=== PATIENT | female | born 1955 | race Caucasian/White ===

== ENCOUNTER 2018-08-24 11:41 | Observation (INO) | payer MEDICARE ==
[~2018-08-24 11:41] MED LIST: ISOVUE-370 76%-LOCM 1 ML ONE
--- NOTE | 2018-08-24 13:01 | RAD ---
PA AND LATERAL VIEWS CHEST: HISTORY: Dyspnea, cough, congestion, and fever. FINDINGS: Comparison is made with the exam of 08/22/2017. Changes of median sternotomy are again seen. Left-sided cardiac pacer is redemonstrated. The heart size is normal. The lungs are expanded without vocal areas of consolidation, pneumothorax, max pul monary edema, or pleural effusions. There are degenerative changes in the spine. IMPRESSION: No radiographic evidence of acute cardiopulmonary process. POS: [facility]
[2018-08-24 13:04] LABS: #Basophils 0.1 thou/uL (0.0-0.2); #Eosinphils 0.1 thou/uL (0.0-0.7); #Lymphocytes 1.4 thou/uL (1.20-3.40); #Monocytes 0.8 thou/uL (0.11-0.59); %Basophils 0.6 % (0.0-1.0); %Eosinophils 0.9 % (0.0-10.0); %Lymphocytes 12.3 % (21.0-51.0); %Monocytes 6.7 % (0.0-10.0); %Neutrophils 79.5 % (42.0-75.0); Hemoglobin 16.6 g/dL (12.0-16.0); Mean Corpuscular HGB CONC 32.8 g/dL (32.0-36.0); Mean Corpuscular Hemoglobin 29.2 pg (27.0-31.0); Mean Corpuscular Volume 89.1 fL (78.0-98.0); Mean Platelet Volume 8.7 fL (7.4-10.4); Platelet Count 264 thou/uL (130-400); RBC Distribution Width 12.3 % (11.5-14.5); Red Blood Cell (RBC) Count 5.69 mill/uL (4.20-5.40); White Blood Cell (WBC) Count 11.3 thou/uL (4.8-10.8)
[2018-08-24 13:06] LABS: INR-International Normal Ratio 1.1; Prothrombin Time 13.8 SEC (12.0-14.7)
[2018-08-24 13:07] LABS: PTT 30.2 SEC (22.9-36.1)
[2018-08-24 13:24] LABS: ALT (SGPT) 12 U/L (8-55); AST (SGOT) 16 U/L (5-34); Albumin 3.4 g/dL (3.4-4.8); Alkaline Phosphatase 72 U/L (40-150); Anion Gap 18 mmol/L (10-20); BUN (Urea Nitrogen) 19 mg/dL (9.8-20.1); Bilirubin, Total 0.5 mg/dL (0.2-1.2); CK (CPK) 143 U/L (29-168); Calc. Creatinine Clearance 0 mL/min (70-130); Calcium 8.8 mg/dL (7.8-10.44); Carbon Dioxide 20 mmol/L (23-31); Chloride 102 mmol/L (98-107); Estimated GFR-MDRD 43; Globulin 3.8 g/dL (2.4-3.5); Glucose 190 mg/dL (80-115); Potassium 4.1 mmol/L (3.5-5.1); Protein, Total 7.2 g/dL (6.0-8.3); Sodium 136 mmol/L (136-145)
[2018-08-24 13:26] LABS: CKMB 3.5 ng/mL (0-6.6); Troponin I 0.042 ng/mL (< 0.028)
[2018-08-24] MEDS ORDERED: Furosemide 40 MG/4 ML VIAL ONE (15:54)
[2018-08-24 16:52] LABS: Bilirubin Moderate (Negative); Blood, Urine Moderate (Negative); Clarity CLEAR (Clear); Glucose, Urine (Dipstick) 100 mg/dL (Negative); Leukocyte Negative (Negative); Nitrite Negative (Negative); Protein, Urine (Dipstick) > or equal to 300 mg/dL (Neg-Trace); Specific Gravity, Urine 1.041 (1.002-1.036); pH, Urine 5.5 (5.0-9.0)
[2018-08-24 16:56] LABS: Pathc Cast-AUWi Flag 3.48 (0-2.49)
[2018-08-24 17:04] LABS: Bacteria/HPF 1+ HPF (None Seen); Renal Epithelial None Seen HPF (0-3); Transitional Epithelial NONE SEEN HPF (0-3)
[2018-08-24 17:05] LABS: Hyaline Casts/LPF NONE SEEN LPF (0-3 Hyaline); Manual Microscopic Reviewed? No Path Casts Seen; Other Casts/LPF 0-3 FINELY GRAN LPF (0-3 Hyaline)
[2018-08-24] MEDS ORDERED: Nitroglycerin 2% Ointment 1 INCH/1 GM Packet ONE (17:24)
[2018-08-24] MEDS ORDERED: Labetalol HCl 100 MG/20 ML VIAL ONE (17:24)
[2018-08-24 17:27] LABS: Troponin I 0.063 ng/mL (< 0.028)
--- NOTE | 2018-08-24 18:37 | CT ---
CT ANGIOGRAM CHEST WITH 3D RENDERING: HISTORY: A 63-year-old female with a history of chest pain, intractable cough, and congestion. FINDINGS: Postop midline sternotomy and left ICD. Small focus of pleural-based nodular scarring in the anterio r right middle lobe. No CT evidence for acute pulmonary embolism. No pleural effusion or pericardia l effusion. The visualized upper abdomen is unremarkable. The ascending aorta approximates 4.1 cm i n diameter. IMPRESSION: No CT evidence for acute pulmonary embolism. No evidence for aortic dissection. Ascending aorta addi roximates 4.1 cm. Small left renal cyst, 2.7 cm. Other findings as above. POS: [facility]
--- NOTE | 2018-08-24 19:12 | PDOC.FPRHP ---
- History of Present Illness Chief Complaint: cough, congestion and fever History of Present Illness: The patient is a 63YO female with a PMH significant for CAD s/p 3 vessel CABG, HTN, HLD, PVD, DMII and mild COPD not on any home medications who presented to the ED with a CC of persistent cough, fever, and nasal and chest congestion that has been ongoing for the last 10 days. The patient reports that about 10 days ago she began to feel ill and started to develop a cough productive of yellow sputum, fever up to 101.5F, and nasal congestion. She also endorsed some associated fatigue and decreased appetite and said she was ill in bed for about 3 days but then started to feel better. However, about 4 days ago she started to feel ill again with similar symptoms in addition to wheezing, purulent nasal discharge, and headache. She did endorse that her granddaughter who she lives with recently had a cold. She has been taking Dayquil and Nyquil almost daily to manage her symptoms that she says has helped some. The patient denies any chest pain, SOB, LE edema, sore throat, or nausea but she did say that her coughing occasionally causes her to gag and vomit and she has had a small amount of diarrhea the last few days. ED Course: Patient was given 20mg of IV labetalol, 1 inch of topical nitropaste, 750mg IV levaquin, & 324mg ASA. - Allergies/Adverse Reactions Allergies Allergy/AdvReac Type Severity Reaction Status Date / Time No Known Drug Allergies Allergy Verified 08/24/18 21:56 - Home Medications Medication Instructions Recorded Confirmed Type Clopidogrel Bisulfate [Plavix] 75 mg PO DAILY #0 tab 04/07/13 08/24/18 Rx Carvedilol [Coreg] 25 mg PO BID #0 tab 08/03/15 08/24/18 Rx Gabapentin [Neurontin] 600 mg PO TID 11/29/15 08/24/18 History Simvastatin [Zocor] 40 mg PO HS 11/29/15 08/24/18 History Ondansetron [Zofran ODT] 4 mg SL Q6HR PRN 03/25/17 08/24/18 History glipiZIDE [Glucotrol XL] 2.5 mg PO QAM-WM #30 tab 04/03/17 08/24/18 Rx Aspirin [Aspirin Chewable Tablet] 81 mg PO DAILY 06/07/17 08/24/18 History Polyethylene Glycol 3350 [Miralax] 17 gm PO DAILY PRN 06/07/17 08/24/18 History Zolpidem Tartrate [Ambien] 5 mg PO HS PRN 06/07/17 08/24/18 History Furosemide [Lasix] 20 mg PO QPM #30 tab 06/09/17 08/24/18 Rx Furosemide [Lasix] 40 mg PO QAM #30 tab 06/09/17 08/24/18 Rx Cholecalciferol (Vitamin D3) 1,000 unit PO DAILY 08/24/18 08/24/18 History [Vitamin D3] Sertraline HCl 100 mg PO DAILY 08/24/18 08/24/18 History - History PMHx: CAD s/p 3-vessel CABG in March of 2017, HTN, HLD, PVD, HFpEF, CKD stage III , depression and anxiety, DMII PSHx: L BKA, R CEA, R rotator cuff repair, AICD placement & 3-vessel CABG FHx: Unknown as patient was adopted. Social: Lives at home with daughter, granddaughter and son-in-law in [place]. Former smoker w/ 50 pack year history. Quit 5 years ago. Drinks about 2 beers/ month. Uses MJ regularly, last used ~2 weeks ago. - Review of Systems General: reports: fever/chills, weight/appetite/sleep changes, fatigue Eyes: denies: eye pain, vision changes ENT: reports: nasal congestion, other (no sore throat or dysphagia). denies: rhinorrhea Respiratory: reports: cough, congestion. denies: shortness of breath Cardiovascular: denies: chest pain, edema Gastrointestinal: reports: vomiting, diarrhea. denies: nausea, constipation, abdominal pain Genitourinary: reports: other (no hematuria). denies: dysuria Skin: denies: rashes, itching Musculoskeletal: reports: arthritis/arthralgias. denies: swelling Neurological: reports: weakness. denies: numbness, syncope Psychological: reports: anxiety, depression - Vital signs BP: 156/92 HR: 85 RR: 18 Tmax: 99.5F Pox: 94% on RA Wt: 94kg - Physical Exam Constitutional: NAD, awake, alert and oriented, well developed HEENT: normocephalic and atraumatic, conjunctiva clear, no scleral icterus, grossly normal vision, TM's clear and intact (could not visualize R TM 2/2 cerumen impaction but L TM clear and intact), grossly normal hearing, MMM, oropharynx clear Neck: supple, FROM, no LAD Chest: no-tender to palpation, no lesions Heart: RRR, normal S1/S2, no edema Lungs: CTAB, no respiratory distress, good air movement, no rales/rhonchi, other (mild upper airway wheezing while listening over trachea) Abdomen: soft, non-tender, bowel sounds present Musculoskeletal: normal structure, ROM grossly normal Neurological: no focal deficit -Neurological: symmetric facial movements Skin: no rash/lesions, good turgor, no jaundice Heme/Lymphatic: no unusual bruising or bleeding Psychiatric: normal mood and affect, good judgment and insight, intact recent and remote memory FMR H&P: Results - Labs Result Diagrams: 08/24/18 12:51 08/25/18 03:39 Lab results: WBC 11.3 thou/uL (4.8-10.8) H 08/24/18 12:51 Hgb 16.6 g/dL (12.0-16.0) H 08/24/18 12:51 Hct 50.7 % (36.0-47.0) H 08/24/18 12:51 MCV 89.1 fL (78.0-98.0) 08/24/18 12:51 Plt Count 264 thou/uL (130-400) 08/24/18 12:51 Neutrophils % 79.5 % (42.0-75.0) H 08/24/18 12:51 Sodium 136 mmol/L (136-145) 08/24/18 12:51 Potassium 4.1 mmol/L (3.5-5.1) 08/24/18 12:51 Chloride 102 mmol/L (98-107) 08/24/18 12:51 Carbon Dioxide 20 mmol/L (23-31) L 08/24/18 12:51 BUN 19 mg/dL (9.8-20.1) 08/24/18 12:51 Creatinine 1.26 mg/dL (0.6-1.1) H 08/24/18 12:51 Glucose 190 mg/dL (80-115) H 08/24/18 12:51 Lactic Acid 1.4 mmol/L (0.5-2.2) 08/24/18 12:51 Calcium 8.8 mg/dL (7.8-10.44) 08/24/18 12:51 Total Bilirubin 0.5 mg/dL (0.2-1.2) 08/24/18 12:51 AST 16 U/L (5-34) 08/24/18 12:51 ALT 12 U/L (8-55) 08/24/18 12:51 Alkaline Phosphatase 72 U/L (40-150) 08/24/18 12:51 Creatine Kinase 143 U/L (29-168) 08/24/18 12:51 CK-MB (CK-2) 3.5 ng/mL (0-6.6) 08/24/18 12:51 B-Natriuretic Peptide 201.4 pg/mL (0-100) H 08/24/18 12:51 Serum Total Protein 7.2 g/dL (6.0-8.3) 08/24/18 12:51 Albumin 3.4 g/dL (3.4-4.8) 08/24/18 12:51 Urine Ketones 15 mg/dL (Negative) H 08/24/18 16:00 Urine Blood Moderate (Negative) H 08/24/18 16:00 Urine Nitrite Negative (Negative) 08/24/18 16:00 Ur Leukocyte Esterase Negative (Negative) 08/24/18 16:00 Urine RBC 7-10 HPF (0-3) H 08/24/18 16:00 Urine WBC 4-6 HPF (0-3) H 08/24/18 16:00 Ur Squamous Epith Cells 11-20 HPF (0-3) H 08/24/18 16:00 Urine Bacteria 1+ HPF (None Seen) H 08/24/18 16:00 - EKG Interpretation EKG: NSR - Radiology Interpretation Chest x-ray Status: report reviewed by me Additional comment: No acute cardiopulmonary process. FMR H&P: A/P - Problem List (1) Sepsis Current Visit: Yes Status: Acute Code(s): A41.9 - SEPSIS, UNSPECIFIED ORGANISM (2) Sinusitis Current Visit: Yes Status: Acute Code(s): J32.9 - CHRONIC SINUSITIS, UNSPECIFIED Qualifiers: Sinusitis location: maxillary Chronicity: acute (3) Carotid artery stenosis Current Visit: Yes Status: Chronic Code(s): I65.29 - OCCLUSION AND STENOSIS OF UNSPECIFIED CAROTID ARTERY Qualifiers: Laterality: bilateral Qualified Code(s): I65.23 - Occlusion and stenosis of bilateral carotid arteries (4) Demand ischemia Current Visit: Yes Status: Acute Code(s): I24.8 - OTHER FORMS OF ACUTE ISCHEMIC HEART DISEASE (5) S/P CABG (coronary artery bypass graft) Current Visit: No Status: Acute Code(s): Z95.1 - PRESENCE OF AORTOCORONARY BYPASS GRAFT (6) CAD (coronary artery disease) Current Visit: Yes Status: Chronic Code(s): I25.10 - ATHSCL HEART DISEASE OF [place] CORONARY ARTERY W/O ANG PCTRS Qualifiers: Coronary Disease-Associated Artery/Lesion type: bypass graft [place] vs. transplanted heart: [place] heart Associated angina: without angina Qualified Code(s): I25.810 - Atherosclerosis of coronary artery bypass graft(s) without angina pectoris (7) CKD (chronic kidney disease) stage 3, GFR 30-59 ml/min Current Visit: Yes Status: Chronic Code(s): N18.3 - CHRONIC KIDNEY DISEASE, STAGE 3 (MODERATE) (8) COPD (chronic obstructive pulmonary disease) Current Visit: Yes Status: Chronic Qualifiers: Chronic bronchitis type: unspecified (9) Chronic insomnia Current Visit: Yes Status: Chronic Code(s): F51.04 - PSYCHOPHYSIOLOGIC INSOMNIA (10) Depression Current Visit: Yes Status: Chronic Code(s): F32.9 - MAJOR DEPRESSIVE DISORDER, SINGLE EPISODE, UNSPECIFIED (11) Diabetic neuropathy associated with type 2 diabetes mellitus Current Visit: Yes Status: Chronic Code(s): E11.40 - TYPE 2 DIABETES MELLITUS WITH DIABETIC NEUROPATHY, UNSP Qualifiers: Diabetes mellitus complication detail: diabetic polyneuropathy Qualified Code(s): E11.42 - Type 2 diabetes mellitus with diabetic polyneuropathy (12) Elevated troponin Current Visit: Yes Status: Acute Code(s): R79.89 - OTHER SPECIFIED ABNORMAL FINDINGS OF BLOOD CHEMISTRY (13) Heart failure with preserved ejection fraction Current Visit: Yes Status: Chronic Code(s): I50.30 - UNSPECIFIED DIASTOLIC ( CONGESTIVE) HEART FAILURE (14) Hyperlipidemia Current Visit: Yes Status: Chronic Code(s): E78.5 - HYPERLIPIDEMIA, UNSPECIFIED Qualifiers: Hyperlipidemia type: unspecified Qualified Code(s): E78.5 - Hyperlipidemia , unspecified Comment: Continue Lipitor 20mg qhs (15) Hypertension Current Visit: No Status: Chronic Code(s): I10 - ESSENTIAL (PRIMARY) HYPERTENSION Qualifiers: Hypertension type: essential hypertension Qualified Code(s): I10 - Essential (primary) hypertension (16) Peripheral vascular disease Current Visit: No Status: Chronic Code(s): I73.9 - PERIPHERAL VASCULAR DISEASE, UNSPECIFIED (17) Type II diabetes mellitus Current Visit: Yes Status: Chronic Qualifiers: Diabetes mellitus complication status: with kidney complications Diabetes mellitus complication detail: with chronic kidney disease Chronic kidney disease stage: stage 3 (moderate) - Plan 63 YO female w/ a PMH significant for DMII, HTN, HLD, HFpEF, and CAD who presented to the ED with a CC of cough, fever, and congestion that has been ongoing on and off for the last 10 days determined to be septic 2/2 sinusitis. Sepsis 2/2 suspected sinusitis: - HR initially just above 100 and tachypnic with a RR of 22 meeting SIRS criteria. WBC elevated but only at 11.3. This along w/ maxillary TTP and purulent nasal discharge on history and PE leads up to believe most likely source to be bacterial sinusitis. Likely 2/2 to an initial viral URI given disease course per patient's history. - However, UA was + for bacteria, WBCs, & blood so could possible be due to UTI but patient denied any urinary symptoms and specimen was not a clean catch per ED physician. - Flu swab & CXR negative. Procal only 0.15 & lactate 1.4. - Blood and urine cultures pending. - Will start on gentle IVFs with LR @ 125mL/hr given h/o CHF. - s/p 750mg IV levaquin in the ED. Will d/c levaquin & start on PO Augmentin to cover possible sinusitis and UTI. - Will order tylenol PRN for fever/pain as well as mucinex & tessalon for cough. Will order PRN Duonebs as well per patient's request. Possible UTI: - UA dirty as described above. - Urine culture pending. - Will start on PO Augmentin to cover both possible UTI and sinusitis. - Will start on gentle IVFs given decreased PO intake over last several days. Moderate volume depletion: - CBC significant for polycythemia w/ an H/H of 16.6/50.9. UA also significant for an elevated SG & ketones all suggestive of decreased volume status. - Will start on gentle IVFs in addition to diet w/ LR @ 125mL/hr. - Repeat BMP in the AM & strict I&Os. Elevated troponin: - Initial troponin elvated at 0.042 and trended up to 0.063. Will repeat to ensure down trend. ECG not concerning for an acute ischemic event and patient denies having any chest pain. - Likely 2/2 demand ischemia from volume depletion from decreased PO intake. - Will monitor overnight on telemetry. Elevated D-dimer: - D-dimer elevated at 1.10 on presentation. - CTA negative for PE or dissection. - Likely 2/2 underlying CAD and/or inflammation 2/2 infection. HTN: - In hypertensive urgency range on initial presentation but patient admitted to med non-compliance. Patient endorsed a frontal SHANKS but denied any other hypertensive emergency symptoms. - s/p 20mg IV labetalol in the ED and SBP down to 150s. - Will resume home meds and continue to monitor. DMII w/ polyneuropathy: - BG 190 on initial presentation. - Will also start on CC diet. - Will resume home meds and start on mild SSI and hypoglycemia protocol. - Will order ACHS accuchecks. HFpEF: - EF of 50-55% per Echo done last May. Does not appear to be in acute exacerbation. Is actually volume depleted rather than volume overloaded based on labwork and PE. - BNP slightly elevated at 201.4. - Is s/p 40mg IV lasix in the ED. Will hold home lasix given low volume status and resume other home meds. COPD: - Mild COPD per patient. Not on any inhalers at home. Not in acute exacerbation as no lower airway wheezing noted on PE & satting well on RA. - Will start on PRN Duonebs per patient request Q4H. HLD: - Aware, will resume home meds. CAD s/p CABG x3 - Aware, will resume home meds. CKD stage III: - renal function at baseline on initial labs. - Will start on low protein diet and continue to monitor w/ QD BMPs. Chronic insomnia: - Will resume home meds. Depression/Anxiety: - Will resume home meds. h/o PVD s/p left BKA & Right CEA: - Aware, will resume home meds. FMR H&P: Upper Level - Pertinent history 63 yo F with PMHx T2DM, HFpeF, CAD s/p CABG with pacemaker in place and HTN presents with 10 day history of sinus and chest congestion, productive cough and subjective fever. Her granddaughter has also been sick with URI symptoms. She reports this has happened in the past but this seems worse than before. She does not endorse any orthopnea, peripheral edema, chest pain, chest pressure or blood tinged sputum. She has been taking cough medication at home with no relief. - Pertinent findings Tachypneic, tachycardic CXR negative, EKG L axis deviation, sinus rhythm, CTA negative for PE or dissection, small renal cyst noted Gen: awake, alert, oriented, in no distress HEENT: atraumatic, normocephalic, dry MM CV: RRR, no murmur noted, pacemaker in place RESP: CTAB ABD: soft, nontender, nondistended, bowel sounds present EXT: no cyanosis, edema, L BKA SKIN: no rashes - Plan Date/Time: 08/24/181911 63 yo F with sepsis 2/2 URI and possibly also UTI 1. Sepsis 2/2 sinusitis + cystitis - BCx, UCx pending - Will start gentle fluids in setting of HFpEF - Will transition to augmentin 2. Elevated troponin - No chest pain - Moderate dehydration, suspect demand ischemia - Will continue to trend and monitor for CP - Monitor on telemetry 3. Dehydration - Urine dark, dry MM and poor PO intake for last 10 days 4. Cystitis - Urine not clean catch - Will await UCx for definitive need for treatment but will continue Augmentin 5. HTN - Elevated in ED - Resume home meds and augment if indicated - Will give PRN if > 180/[address] Jean Baptiste's note regarding remainder of comorbidity MGMT I, Jalyn Quinn MD, PGY-3, have evaluated this patient and agree with findings/ plan as outlined by director international resident. Pertinent changes/additions are listed here. Attending Addendum - Attending Addendum Date/Time: 08/25/18821 I personally evaluated the patient and discussed the management with Dr. Jean Baptiste/ Kai. I agree with the History, Examination, Assessment and Plan documented above with any addition or exceptions noted below.
[2018-08-24] MEDS ORDERED: Ondansetron ODT 4 MG TAB PO PRN (22:25)
[2018-08-24] MEDS ORDERED: Acetaminophen 325 MG TAB PO PRN (22:25)
[2018-08-24] MEDS ORDERED: Insulin Regular 300 UNITS/3 ML VIAL SC PRN (22:25)
[2018-08-24] MEDS ORDERED: Benzonatate 100 MG CAP PO PRN (22:25)
[2018-08-24] MEDS ORDERED: Zolpidem Tartrate 5 MG TAB PO PRN (22:25)
[2018-08-24] MEDS ORDERED: Dextrose 5% in Water 1,000 ML IV PRN (22:25)
[2018-08-24] MEDS ORDERED: Dextrose 50% Abboject 50 ML SYRINGE SLOW IVP PRN (22:25)
[2018-08-24 22:42] VITALS: BMI 34.4
[2018-08-24] MEDS ORDERED: Gabapentin 300 MG CAP PO SCH (22:45)
[2018-08-24] MEDS ORDERED: Atorvastatin Calcium 20 MG TAB PO SCH (22:45)
[2018-08-24] MEDS ORDERED: Amoxicillin/Potassium Clav 875 MG TAB PO SCH (22:45)
[2018-08-24] MEDS ORDERED: Carvedilol 25 MG TAB PO SCH (22:45)
[2018-08-24] MEDS: Lactated Ringer's 1,000 ML IV SCH (23:07)
[2018-08-24] MEDS ORDERED: guaiFENesin/DM ER PO SCH (23:15)
[2018-08-24 23:49] LABS: Troponin I 0.074 ng/mL (< 0.028)
[2018-08-25 04:00] LABS: Anion Gap 14 mmol/L (10-20); BUN (Urea Nitrogen) 22 mg/dL (9.8-20.1); Calc. Creatinine Clearance 65 mL/min (70-130); Calcium 8.4 mg/dL (7.8-10.44); Carbon Dioxide 25 mmol/L (23-31); Chloride 102 mmol/L (98-107); Estimated GFR-MDRD 40; Glucose 159 mg/dL (80-115); Potassium 4.1 mmol/L (3.5-5.1); Sodium 137 mmol/L (136-145)
[2018-08-25 04:05] LABS: Troponin I 0.071 ng/mL (< 0.028)
--- NOTE | 2018-08-25 06:55 | PDOC.FM ---
- Subjective Subjective: Patient doing well this AM. No significant overnight events. Patient states she is feeling much better than she did yesterday. She is tolerating PO. Her facial pain has decreased. She feels as if she is ready to go home. - Objective MAR Reviewed: Yes Vital Signs & Weight: Vital Signs (12 hours) Temp Pulse Resp BP Pulse Ox 08/25/18 03:59 98.3 F 76 20 133/79 94 L 08/24/18 23:27 82 17 158/83 H 08/24/18 20:08 98 F 83 22 H 134/73 95 Weight Weight 96.343 kg I&O: 08/23/18 08/24/18 08/25/18 06:59 06:59 06:59 Intake Total 1753 Output Total 500 Balance 1253 Result Diagrams: 08/24/18 12:51 08/25/18 03:39 EKG Reviewed by me: No Radiology Reviewed by me: Yes <Jackie Dorman - Last Filed: 08/25/18 10:26> - Objective Vital Signs & Weight: Vital Signs (12 hours) Temp Pulse Resp BP BP Pulse Ox 08/25/18 09:12 68 142/72 H 08/25/18 08:00 98.3 F 69 16 198/91 H 94 L 08/25/18 03:59 98.3 F 76 20 133/79 94 L 08/24/18 23:27 82 17 158/83 H Weight Weight 96.343 kg I&O: 08/24/18 08/25/18 08/26/18 06:59 06:59 06:59 Intake Total 1753 Output Total 500 Balance 1253 Result Diagrams: 08/24/18 12:51 08/25/18 03:39 <Pascual Kraus - Last Filed: 08/25/18 10:33> Phys Exam - Physical Examination Constitutional: NAD HEENT: moist MMs Neck: supple Respiratory: no wheezing, clear to auscultation bilateral Cardiovascular: RRR Gastrointestinal: soft, no distention, positive bowel sounds Musculoskeletal: no edema, pulses present Neurological: non-focal, moves all 4 limbs Psychiatric: normal affect, A&O x 3 Skin: no rash, cap refill <2 seconds <Jackie Dorman - Last Filed: 08/25/18 10:26> Dx/Plan (1) Sepsis Code(s): A41.9 - SEPSIS, UNSPECIFIED ORGANISM Status: Acute (2) Demand ischemia Code(s): I24.8 - OTHER FORMS OF ACUTE ISCHEMIC HEART DISEASE Status: Acute (3) Sinusitis Code(s): J32.9 - CHRONIC SINUSITIS, UNSPECIFIED Status: Acute Qualifiers: Sinusitis location: maxillary Chronicity: acute (4) Elevated troponin Code(s): R79.89 - OTHER SPECIFIED ABNORMAL FINDINGS OF BLOOD CHEMISTRY Status : Acute (5) CAD (coronary artery disease) Code(s): I25.10 - ATHSCL HEART DISEASE OF [place] CORONARY ARTERY W/O ANG PCTRS Status: Chronic Qualifiers: Coronary Disease-Associated Artery/Lesion type: bypass graft [place] vs. transplanted heart: telida heart Associated angina: without angina Qualified Code(s): I25.810 - Atherosclerosis of coronary artery bypass graft(s) without angina pectoris (6) CKD (chronic kidney disease) stage 3, GFR 30-59 ml/min Code(s): N18.3 - CHRONIC KIDNEY DISEASE, STAGE 3 (MODERATE) Status: Chronic (7) COPD (chronic obstructive pulmonary disease) Status: Chronic Qualifiers: Chronic bronchitis type: unspecified (8) Carotid artery stenosis Code(s): I65.29 - OCCLUSION AND STENOSIS OF UNSPECIFIED CAROTID ARTERY Status : Chronic Qualifiers: Laterality: bilateral Qualified Code(s): I65.23 - Occlusion and stenosis of bilateral carotid arteries (9) Chronic insomnia Code(s): F51.04 - PSYCHOPHYSIOLOGIC INSOMNIA Status: Chronic (10) Depression Code(s): F32.9 - MAJOR DEPRESSIVE DISORDER, SINGLE EPISODE, UNSPECIFIED Status : Chronic (11) Diabetic neuropathy associated with type 2 diabetes mellitus Code(s): E11.40 - TYPE 2 DIABETES MELLITUS WITH DIABETIC NEUROPATHY, UNSP Status: Chronic Qualifiers: Diabetes mellitus complication detail: diabetic polyneuropathy Qualified Code(s): E11.42 - Type 2 diabetes mellitus with diabetic polyneuropathy (12) Heart failure with preserved ejection fraction Code(s): I50.30 - UNSPECIFIED DIASTOLIC (CONGESTIVE) HEART FAILURE Status: Chronic (13) Hyperlipidemia Code(s): E78.5 - HYPERLIPIDEMIA, UNSPECIFIED Status: Chronic Qualifiers: Hyperlipidemia type: unspecified Qualified Code(s): E78.5 - Hyperlipidemia , unspecified (14) Type II diabetes mellitus Status: Chronic Qualifiers: Diabetes mellitus complication status: with kidney complications Diabetes mellitus complication detail: with chronic kidney disease Chronic kidney disease stage: stage 3 (moderate) (15) Hypertension Code(s): I10 - ESSENTIAL (PRIMARY) HYPERTENSION Status: Chronic Qualifiers: Hypertension type: essential hypertension Qualified Code(s): I10 - Essential (primary) hypertension - Plan Plan: 63 YO female w/ a PMH significant for DMII, HTN, HLD, HFpEF, and CAD who presented to the ED with a CC of cough, fever, and congestion that has been ongoing on and off for the last 10 days determined to be septic 2/2 sinusitis. Sepsis 2/2 suspected sinusitis: - HR initially just above 100 and tachypneic with a RR of 22 meeting SIRS criteria. WBC elevated but only at 11.3. This along w/ maxillary TTP and purulent nasal discharge on history and PE leads us to believe most likely source to be bacterial sinusitis. Likely 2/2 to an initial viral URI given disease course per patient's history. - UA was + for bacteria, WBCs, & blood so could possibly be due to UTI, but patient denied any urinary symptoms and specimen was not a clean catch per ED physician. - Flu swab & CXR negative. Procal only 0.15 & lactate 1.4. - Blood and urine cultures pending. - D/c IVF as patient tolerating PO - Continue Augmentin - Tylenol PRN for fever/pain as well as mucinex & tessalon for cough. Continue PRN Duonebs as well per patient's request. Possible UTI: - UA dirty as described above. - Urine culture pending. - Continue PO Augmentin to cover both possible UTI and sinusitis. - D/c IVF as patient tolerating PO. Moderate volume depletion: - CBC significant for polycythemia w/ an H/H of 16.6/50.9. UA also significant for an elevated SG & ketones all suggestive of decreased volume status. - D/c IVF and encourage PO hydration. Elevated troponin likely 2/2 demand ischemia: - Initial troponin elvated at 0.042 and trended up to 0.063. Repeat 0.074, 0.071. - ECG not concerning for an acute ischemic event and patient denies having any chest pain. - Likely 2/2 demand ischemia from volume depletion from decreased PO intake. - Continue to monitor on telemetry. Elevated D-dimer: - D-dimer elevated at 1.10 on presentation. May be related to sepsis. - CTA negative for PE or dissection. - Likely 2/2 underlying CAD and/or inflammation 2/2 infection. HTN: - In hypertensive urgency range on initial presentation but patient admitted to med non-compliance. Patient endorsed a frontal SHANKS but denied any other symptoms concerning for hyptertensive emergency. - s/p 20mg IV labetalol in the ED and SBP down to 150s. - Continue home meds and continue to monitor. - BP this AM 133/79. DMII w/ polyneuropathy: - BG 190 on initial presentation. - Continue CC diet. - Resume home meds and start on mild SSI and hypoglycemia protocol. - ACHS accuchecks. - BG 159. HFpEF: - EF of 50-55% per Echo done last May. Does not appear to be in acute exacerbation. Is actually volume depleted rather than volume overloaded based on labwork and PE. - BNP slightly elevated at 201.4. This is the lowest it has been. - Is s/p 40mg IV lasix in the ED. Will hold home lasix given low volume status and resume other home meds. COPD: - Mild COPD per patient. Not on any inhalers at home. Not in acute exacerbation as no lower airway wheezing noted on PE & satting well on RA. - Will continue PRN Duonebs per patient request Q4H. HLD: - Aware, will continue home meds. CAD s/p CABG x3 - Aware, will continue home meds. CKD stage III: - Renal function at baseline on initial labs. Mildly elevated today compared to initial labwork. - Will start on low protein diet and continue to monitor. Chronic insomnia: - Will resume home meds. Depression/Anxiety: - Will resume home meds. h/o PVD s/p left BKA & Right CEA: - Aware, will resume home meds. Dispo: Stable. Patient improved. If patient continues to tolerate PO and appears better hydrated, will consider d/c home this afternoon. <Jackie Dorman - Last Filed: 08/25/18 10:26> (1) Sepsis Code(s): A41.9 - SEPSIS, UNSPECIFIED ORGANISM Status: Acute (2) Sinusitis Code(s): J32.9 - CHRONIC SINUSITIS, UNSPECIFIED Status: Acute Qualifiers: Sinusitis location: maxillary Chronicity: acute (3) Carotid artery stenosis Code(s): I65.29 - OCCLUSION AND STENOSIS OF UNSPECIFIED CAROTID ARTERY Status : Chronic Qualifiers: Laterality: bilateral Qualified Code(s): I65.23 - Occlusion and stenosis of bilateral carotid arteries (4) Demand ischemia Code(s): I24.8 - OTHER FORMS OF ACUTE ISCHEMIC HEART DISEASE Status: Acute (5) S/P CABG (coronary artery bypass graft) Code(s): Z95.1 - PRESENCE OF AORTOCORONARY BYPASS GRAFT Status: Acute (6) CAD (coronary artery disease) Code(s): I25.10 - ATHSCL HEART DISEASE OF [place] CORONARY ARTERY W/O ANG PCTRS Status: Chronic Qualifiers: Coronary Disease-Associated Artery/Lesion type: bypass graft [place] vs. transplanted heart: [place] heart Associated angina: without angina Qualified Code(s): I25.810 - Atherosclerosis of coronary artery bypass graft(s) without angina pectoris (7) CKD (chronic kidney disease) stage 3, GFR 30-59 ml/min Code(s): N18.3 - CHRONIC KIDNEY DISEASE, STAGE 3 (MODERATE) Status: Chronic (8) COPD (chronic obstructive pulmonary disease) Status: Chronic Qualifiers: Chronic bronchitis type: unspecified (9) Chronic insomnia Code(s): F51.04 - PSYCHOPHYSIOLOGIC INSOMNIA Status: Chronic (10) Depression Code(s): F32.9 - MAJOR DEPRESSIVE DISORDER, SINGLE EPISODE, UNSPECIFIED Status : Chronic (11) Diabetic neuropathy associated with type 2 diabetes mellitus Code(s): E11.40 - TYPE 2 DIABETES MELLITUS WITH DIABETIC NEUROPATHY, UNSP Status: Chronic Qualifiers: Diabetes mellitus complication detail: diabetic polyneuropathy Qualified Code(s): E11.42 - Type 2 diabetes mellitus with diabetic polyneuropathy (12) Elevated troponin Code(s): R79.89 - OTHER SPECIFIED ABNORMAL FINDINGS OF BLOOD CHEMISTRY Status : Acute (13) Heart failure with preserved ejection fraction Code(s): I50.30 - UNSPECIFIED DIASTOLIC (CONGESTIVE) HEART FAILURE Status: Chronic (14) Hyperlipidemia Code(s): E78.5 - HYPERLIPIDEMIA, UNSPECIFIED Status: Chronic Qualifiers: Hyperlipidemia type: unspecified Qualified Code(s): E78.5 - Hyperlipidemia , unspecified (15) Hypertension Code(s): I10 - ESSENTIAL (PRIMARY) HYPERTENSION Status: Chronic Qualifiers: Hypertension type: essential hypertension Qualified Code(s): I10 - Essential (primary) hypertension (16) Peripheral vascular disease Code(s): I73.9 - PERIPHERAL VASCULAR DISEASE, UNSPECIFIED Status: Chronic (17) Type II diabetes mellitus Status: Chronic Qualifiers: Diabetes mellitus complication status: with kidney complications Diabetes mellitus complication detail: with chronic kidney disease Chronic kidney disease stage: stage 3 (moderate) <Pascual Kraus R - Last Filed: 08/25/18 10:33> Attending Addendum - Attending Addendum Date/Time: 08/25/18 1031 I personally evaluated the patient and discussed the management with Dr. Dorman. I agree with the History, Examination, Assessment and Plan documented above with any addition or exceptions noted below. Patient feeling well. Symptoms seem more related to sinusitis and upper airway infection. She is on Augmentin and feeling well. Will see how she feels later today but she reports feeling well to go home as long as cough is under control. Monitor and possible d/c later today. <Pascual Kraus R - Last Filed: 08/25/18 10:33>
[2018-08-25] MEDS: Lactated Ringer's 1,000 ML IV SCH (07:30)
[2018-08-25] MEDS ORDERED: FlunisoLIDE 0.025% Nasal Spray 25 ml Bottle EA NARE SCH (09:00)
[2018-08-25] MEDS ORDERED: Carvedilol 25 MG TAB PO SCH (09:00)
[2018-08-25] MEDS ORDERED: Enoxaparin Sodium 40 MG/0.4 ML SYRINGE SC SCH (09:00)
[2018-08-25] MEDS ORDERED: Gabapentin 300 MG CAP PO SCH (09:00)
[2018-08-25] MEDS ORDERED: Clopidogrel Bisulfate 75 MG TAB PO SCH (09:00)
[2018-08-25] MEDS ORDERED: Amoxicillin/Potassium Clav 875 MG TAB PO SCH (09:00)
[2018-08-25] MEDS ORDERED: Aspirin 325 MG TAB PO SCH (09:00)
[2018-08-25] MEDS ORDERED: guaiFENesin/DM ER PO SCH (09:00)
[2018-08-25] MEDS ORDERED: Fluticasone Propionate Nasal Spray 16 gm Bottle NASAL SCH (09:00)
[2018-08-25 12:00] VITALS: TEMP 98.2
[2018-08-25 13:04] VITALS: BP 172/74
--- NOTE | 2018-08-25 15:42 | DIS-2 ---
DATE OF ADMISSION: 08/24/2018 DATE OF DISCHARGE: 08/25/2018 ADMITTING ATTENDING: Pascual Kraus MD DISCHARGE ATTENDING: Pascual Kraus MD. RESIDENT: Dr. Jackie Dorman. PROCEDURES: 1. Chest x-ray shows no radiographic evidence of acute cardiopulmonary process. 2. Chest/thorax CTA shows no CT evidence for acute pulmonary embolism. There was no evidence of aor tic dissection. The ascending aorta measured approximately 4.1 cm. There was a small left renal cys t that was 2.7 cm. CONSULTATIONS: None. PRIMARY DIAGNOSES: 1. Sepsis secondary to acute bacterial sinusitis. 2. Elevated cardiac enzymes secondary to demand ischemia. 3. Possible urinary tract infection. 4. Moderate dehydration. 5. Elevated D-dimer, likely secondary to infectious process. SECONDARY DIAGNOSES: 1. Chronic obstructive pulmonary disease. 2. Heart failure with preserved ejection fraction. 3. Diabetes mellitus with polyneuropathy. 4. Hyperlipidemia. 5. Coronary artery disease status post coronary artery bypass graft x3. 6. Chronic kidney disease stage 3. 7. Chronic insomnia. 8. Depression/anxiety. 9. History of peripheral vascular disease, status post left [id number] amputation and right CEA. DISCHARGE MEDICATIONS: 1. Aspirin 81 mg p.o. daily. 2. Vitamin D3 of 1000 units p.o. daily. 3. Gabapentin 600 mg p.o. t.i.d. 4. Zofran 4 mg sublingual q.6 hours p.r.n. 5. MiraLax 17 grams p.o. daily. 6. Sertraline 100 mg p.o. daily. 7. Simvastatin 40 mg p.o. at bedtime. 8. Ambien 5 mg p.o. at bedtime p.r.n. 9. Augmentin 875 mg p.o. q.12 hours x6 days to complete a 7-day course. 10. Benzonatate 100 mg p.o. q.4 hours p.r.n. for cough. 11. Carvedilol 25 mg p.o. b.i.d. 12. Clopidogrel bisulfate 75 mg p.o. daily. 13. Fluticasone 1 spray nasal daily. 14. Furosemide 20 mg p.o. q.p.m., 40 mg p.o. q.a.m. 15. Glipizide 2.5 mg p.o. q.a.m. 16. Mucinex DM 2 tabs p.o. q.12 hours p.r.n. HISTORY OF PRESENT ILLNESS AND HOSPITAL COURSE: This is a pleasant 63-year-old female with past medical history significant for coronary artery disease, status post 3-vessel CABG, hypertensio n, hyperlipidemia, peripheral vascular disease, diabetes mellitus type 2, and mild COPD who presented to the emergency department with chief complaint of persistent cough, fever, nasal and chest congest ion that has been ongoing for the last 10 days. The patient states that she initially started to get better, but then worsened again approximately 5 days into the course of the illness. The patient re ports about 10 days ago is when she initially started to feel ill and developed a cough productive of yellow sputum. She also endorsed a fever up to 101.5 with associated nasal congestion. The patient had a pretty significant fatigue and decreased appetite during this time. The cough and fatigue bro ught her into the emergency department. The patient does endorse that her granddaughter who lives wi th her recently had a viral upper respiratory infection. She tried taking DayQuil and Nyquil daily t o manage her symptoms, but it was not really effective. The patient denies any chest pain, shortness of breath, lower extremity edema, sore throat, or nausea. The patient remained stable throughout the course of her hospital stay. She was fluid resuscitated w ith lactated Ringer's and started on Augmentin for treatment of acute bacterial sinusitis as well as presumed urinary tract infection. Patient was also given Mucinex and Tessalon Perles for cough. Thi s morning, the patient states she felt much improved from yesterday. Her facial pressure was signifi cantly improved and she felt like she was getting a lot better with her current therapy. The patient was tolerating p.o. After lengthy discussion this morning, it was decided that it was safe for dominique ent to be discharged home to continue the course of her antibiotics and to take the supportive therap y as needed for symptoms. The patient felt comfortable with a discharge home knowing the return prec autions to include worsening of symptoms or persistent symptoms over the course of the next couple da ys. Patient was advised to follow with her primary care physician within 7-10 days of discharge from the hospital to ensure resolution and improvement in her symptoms. The patient was noted to have elevated blood pressure on admission. She was given 20 mg of IV labeta lol in the emergency department and one nitro paste as well as 324 mg of aspirin. There were no acut e changes suggestive of ischemia or CA on EKG in the ER. Additionally, the patient had a chest x-ray which was normal. A D-dimer was obtained and was noted to be elevated and thus a CTA was performed down in the emergency department. A CTA was negative for any pulmonary embolism. D-dimer likely yuli vated secondary to infectious process. Additionally, the patient's cardiac enzymes were elevated. T la did downtrend. Elevation in the cardiac enzymes, likely secondary to demand ischemia from dehydr ation stress induced from the infection. Patient has remained afebrile since admission. Her pulse h as remained steady in the 70s-80s. Blood pressure has been slightly labile anywhere from 140s-170s. Of note, the patient has not been compliant with her blood pressure medications. It was advised beto t she take these medications regularly at home to ensure that her blood pressure stays stable. Again , ER precautions were provided and patient was in understanding of the necessity to return to the ER should her symptoms acutely worsen. DISPOSITION: Stable. DISCHARGE INSTRUCTIONS: 1. Location: Home. 2. Activity: As tolerated. 3. Diet: Heart healthy, diabetic diet, renal diet. FOLLOWUP INSTRUCTIONS: The patient is to follow up with her primary care physician within 7 days of discharge from hospital to ensure resolution and improvement in symptoms. The patient was in underst anding and agreement with this plan.
[2018-08-25] MEDS ORDERED: Atorvastatin Calcium 20 MG TAB PO SCH (21:00)
== END 2018-08-25 14:15 | disposition home or self-care (01) ==
LOC: ERS 11:41 → 2SW 18:25
PROVIDERS: ADMIT Student in an Organized Health Care Education/Training Program; ATTEND Student in an Organized Health Care Education/Training Program
DX: A41.9 Sepsis, unspecified organism (principal); J01.90 Acute sinusitis, unspecified; B96.89 Other specified bacterial agents as the cause of diseases classified elsewhere; J44.9 Chronic obstructive pulmonary disease, unspecified; I13.0 Hypertensive heart and chronic kidney disease with heart failure and stage 1 through stage 4 chronic kidney disease, or unspecified chronic kidney disease; E11.22 Type 2 diabetes mellitus with diabetic chronic kidney disease; N18.3 Chronic kidney disease, stage 3 (moderate); I50.30 Unspecified diastolic (congestive) heart failure; I25.10 Atherosclerotic heart disease of native coronary artery without angina pectoris; E86.0 Dehydration; E78.5 Hyperlipidemia, unspecified; F32.9 Major depressive disorder, single episode, unspecified; I24.8 Other forms of acute ischemic heart disease; F51.04 Psychophysiologic insomnia; E11.42 Type 2 diabetes mellitus with diabetic polyneuropathy; R79.89 Other specified abnormal findings of blood chemistry; F41.9 Anxiety disorder, unspecified; Z87.891 Personal history of nicotine dependence; Z79.02 Long term (current) use of antithrombotics/antiplatelets; Z79.82 Long term (current) use of aspirin; Z79.899 Other long term (current) drug therapy; Z95.1 Presence of aortocoronary bypass graft; Z95.810 Presence of automatic (implantable) cardiac defibrillator; Z89.512 Acquired absence of left leg below knee; Z79.84 Long term (current) use of oral hypoglycemic drugs
CPT/HCPCS: 71046; 71275; 80048; 80053; 82550; 82553; 82962 ×2; 83605; 83880; 84145; 84484 ×3; 85025; 85379; 85610; 85730; 87040; 87086; 87804 ×2; 93005; 94760; 96361 ×2; 96365; 96366; 96372; 96374; 96375; 99285; G0378 ×2; 36415; 36416; 81003; 81015; J1650; J1940; J1956

== ENCOUNTER 2019-09-27 13:26 | Outpatient (CLI) | payer MEDICARE ==
--- NOTE | 2019-09-27 14:01 | RAD ---
EXAM: Chest 2 views: HISTORY: Community-acquired pneumonia COMPARISON: None. FINDINGS: There is a normal-sized cardiomediastinal silhouette. The patient is status post sternotomy. There i s a pacemaker with its leads in the right atrium and ventricle. There is no evidence of consolidation, mass, or pleural effusion. Degenerative changes are seen in the spine. IMPRESSION: No evidence of acute cardiopulmonary disease
== END 2019-09-27 13:27 | disposition home or self-care (01) ==
LOC: BICMAMMO 13:26
PROVIDERS: ATTEND Family Medicine
DX: J18.9 Pneumonia, unspecified organism (principal)
CPT/HCPCS: 71046

== ENCOUNTER 2020-02-03 11:52 | Observation (INO) | payer MEDICARE, OTHER ==
[2020-02-03] MEDS ORDERED: Lorazepam 2 MG/ML VIAL ONE (13:18)
[2020-02-03] MEDS ORDERED: Ondansetron PF 4 MG/2 ML Vial ONE (13:18)
[2020-02-03 13:24] LABS: #Basophils 0.1 thou/uL (0.0-0.2); #Eosinphils 0.1 thou/uL (0.0-0.7); #Lymphocytes 1.7 thou/uL (1.20-3.40); #Monocytes 0.6 thou/uL (0.11-0.59); #Neutrophils 11.4 thou/uL (1.40-6.50); %Basophils 0.5 % (0.0-1.0); %Eosinophils 0.4 % (0.0-10.0); %Monocytes 4.6 % (0.0-10.0); %Neutrophils 82.5 % (42.0-75.0); Hemoglobin 17.5 g/dL (12.0-16.0); Mean Corpuscular HGB CONC 33.2 g/dL (32.0-36.0); Mean Corpuscular Volume 90.4 fL (78.0-98.0); Mean Platelet Volume 9.3 fL (7.4-10.4); Platelet Count 287 thou/uL (130-400); Red Blood Cell (RBC) Count 5.84 mill/uL (4.20-5.40); White Blood Cell (WBC) Count 13.8 thou/uL (4.8-10.8)
[2020-02-03 13:42] LABS: ALT (SGPT) 10 U/L (8-55); AST (SGOT) 18 U/L (5-34); Albumin 3.8 g/dL (3.4-4.8); Alkaline Phosphatase 88 U/L (40-110); Anion Gap 20 mmol/L (10-20); BUN (Urea Nitrogen) 31 mg/dL (9.8-20.1); Bilirubin, Total 0.6 mg/dL (0.2-1.2); Calc. Creatinine Clearance 0 mL/min (70-130); Carbon Dioxide 22 mmol/L (23-31); Chloride 101 mmol/L (98-107); Estimated GFR-MDRD 24; Globulin 3.8 g/dL (2.4-3.5); Glucose 147 mg/dL (80-115); Potassium 4.5 mmol/L (3.5-5.1); Protein, Total 7.6 g/dL (6.0-8.3); Sodium 138 mmol/L (136-145)
--- NOTE | 2020-02-03 16:13 | PDOC.FPRHP ---
- Allergies/Adverse Reactions Allergies Allergy/AdvReac Type Severity Reaction Status Date / Time No Known Drug Allergies Allergy Verified 08/24/18 21:56 - Home Medications Medication Instructions Recorded Confirmed Type Clopidogrel Bisulfate [Plavix] 75 mg PO DAILY #0 tab 04/07/13 08/24/18 Rx Carvedilol [Coreg] 25 mg PO BID #0 tab 08/03/15 08/24/18 Rx Gabapentin [Neurontin] 600 mg PO TID 11/29/15 08/24/18 History Simvastatin [Zocor] 40 mg PO HS 11/29/15 08/24/18 History Ondansetron [Zofran ODT] 4 mg SL Q6HR PRN 03/25/17 08/24/18 History glipiZIDE [Glucotrol XL] 2.5 mg PO QAM-WM #30 tab 04/03/17 08/24/18 Rx Aspirin Chewable [Aspirin Chewable 81 mg PO DAILY 06/07/17 08/24/18 History Tablet] Polyethylene Glycol 3350 [Miralax] 17 gm PO DAILY PRN 06/07/17 08/24/18 History Zolpidem Tartrate [Ambien] 5 mg PO HS PRN 06/07/17 08/24/18 History Furosemide [Lasix] 20 mg PO QPM #30 tab 06/09/17 08/24/18 Rx Furosemide [Lasix] 40 mg PO QAM #30 tab 06/09/17 08/24/18 Rx Cholecalciferol (Vitamin D3) 1,000 unit PO DAILY 08/24/18 08/24/18 History [Vitamin D3] Sertraline HCl 100 mg PO DAILY 08/24/18 08/24/18 History Amoxicillin/Potassium Clav 875 mg PO Q12HR #13 tab 08/25/18 Rx [Augmentin] Benzonatate [Tessalon] 100 mg PO Q4H PRN #30 cap 08/25/18 Rx Fluticasone Propionate [Flonase 1 gm NASAL DAILY #1 bot 08/25/18 Rx Nasal Vesper] guaiFENesin/DM ER [Mucinex DM] 2 tab PO Q12HR #30 tab 08/25/18 Rx - History PMHx: PSHx: FHx: Social: - Vital signs BP: [] HR: [] RR: [] Tmax: [] Pox: []% on [] Wt: [] FMR H&P: Results - Labs Result Diagrams: 02/03/20 13:13 02/03/20 13:13 Lab results: WBC 13.8 thou/uL (4.8-10.8) H 02/03/20 13:13 Hgb 17.5 g/dL (12.0-16.0) H 02/03/20 13:13 Hct 52.7 % (36.0-47.0) H 02/03/20 13:13 MCV 90.4 fL (78.0-98.0) 02/03/20 13:13 Plt Count 287 thou/uL (130-400) 02/03/20 13:13 Neutrophils % 82.5 % (42.0-75.0) H 02/03/20 13:13 Sodium 138 mmol/L (136-145) 02/03/20 13:13 Potassium 4.5 mmol/L (3.5-5.1) 02/03/20 13:13 Chloride 101 mmol/L (98-107) 02/03/20 13:13 Carbon Dioxide 22 mmol/L (23-31) L 02/03/20 13:13 BUN 31 mg/dL (9.8-20.1) H 02/03/20 13:13 Creatinine 2.09 mg/dL (0.6-1.1) H 02/03/20 13:13 Glucose 147 mg/dL (80-115) H 02/03/20 13:13 Calcium 9.0 mg/dL (7.8-10.44) 02/03/20 13:13 Total Bilirubin 0.6 mg/dL (0.2-1.2) 02/03/20 13:13 AST 18 U/L (5-34) 02/03/20 13:13 ALT 10 U/L (8-55) 02/03/20 13:13 Alkaline Phosphatase 88 U/L (40-110) 02/03/20 13:13 Serum Total Protein 7.6 g/dL (6.0-8.3) 02/03/20 13:13 Albumin 3.8 g/dL (3.4-4.8) 02/03/20 13:13 FMR H&P: Upper Level - Plan Date/Time: 02/03/20 1613 I, [], have evaluated this patient and agree with findings/plan as outlined by dental internship resident. Pertinent changes/additions are listed here.
--- NOTE | 2020-02-03 16:35 | PDOC.EVN ---
Addendum - Attending - Attending Attestation Date/Time: 02/03/20 9539 I personally evaluated the patient and discussed the management with the Dr. Lynn. I agree with the History, Examination, Assessment and Plan documented above with any addition or exceptions noted below. 64 yo WF PMH CAD s/p CABG, HFpEF, COPD and DM2. Presents with 2 day hx of intermittent fever up to 102F, cough, and intractable N/V that started after she binge drank 3 nights ago. Last fever yesterday. States she has been self isolating and has not been in contact with any known COVI positive individuals. Exam is unremarkable. Vitals WNL except for elevated BP. Afebrile in ER. Labs show elevated Cr at 2.0. Was 1.7 at [facility] in November. Will admit to observation for COVID r/o and intractable N/V with mild ROLA on CKD 3B. CXR ordered by primary team. Other labs not suggestive of severe disease but could be early in disease course and still has positive WBC count. COVID swab pending. Contact/ droplet/airborne precautions given. Gentle IV fluids and repeat BMP in AM to evaluate ROLA. Will monitor for signs of fluid overload. Chronic problems per resident note.
--- NOTE | 2020-02-03 16:47 | PDOC.FPRHP ---
- History of Present Illness Chief Complaint: Fever, Cough, SOB History of Present Illness: 64yo female with pmh of DMII, HTN, CAD, HLD, PAD presents with fever, SOB, nausea and vomiting, SOB x3 days. She states it started after a binge drinking episode - although she states that she does not typically drink butonce a month. The patient states that 2 days ago she had fever up to 101.7F at home. Endorses possible fever this morning but did not take temperature at home. She endorses nasal congestion, cough, and sneezing over the last 3 days as well. She states that she does not have a history of allergies. She reports that her SOB is worse with movement. She does not have any issues lying flat at night. She reports that she also gets very SOB after having a "coughing fit." Her cough is dry. She endorses myalgias x 1 day. She denies any sick contacts or travel. Patient has significant cardiac hx but endorses no chest pain or palpitations over the last 3 days. PCP: Dr. Kinsey- [facility] ED Course: 2L NS, Lorazepam, Zofran - Allergies/Adverse Reactions Allergies Allergy/AdvReac Type Severity Reaction Status Date / Time No Known Drug Allergies Allergy Verified 02/03/20 18:18 - Home Medications Medication Instructions Recorded Confirmed Type Clopidogrel Bisulfate [Plavix] 75 mg PO DAILY #0 tab 04/07/13 02/03/20 Rx Carvedilol [Coreg] 25 mg PO BID #0 tab 08/03/15 02/03/20 Rx Gabapentin [Neurontin] 600 mg PO TID 11/29/15 02/03/20 History Simvastatin [Zocor] 40 mg PO HS 11/29/15 02/03/20 History Ondansetron [Zofran ODT] 4 mg SL Q6HR PRN 03/25/17 02/03/20 History glipiZIDE [Glucotrol XL] 2.5 mg PO QAM-WM #30 tab 04/03/17 02/03/20 Rx Aspirin Chewable [Aspirin Chewable 81 mg PO DAILY 06/07/17 02/03/20 History Tablet] Polyethylene Glycol 3350 [Miralax] 17 gm PO DAILY PRN 06/07/17 02/03/20 History Zolpidem Tartrate [Ambien] 5 mg PO HS PRN 06/07/17 02/03/20 History Furosemide [Lasix] 20 mg PO QPM #30 tab 06/09/17 02/03/20 Rx Furosemide [Lasix] 40 mg PO QAM #30 tab 06/09/17 02/03/20 Rx Cholecalciferol (Vitamin D3) 1,000 unit PO DAILY 08/24/18 02/03/20 History [Vitamin D3] Sertraline HCl 100 mg PO DAILY 08/24/18 02/03/20 History Benzonatate [Tessalon] 100 mg PO Q4H PRN #30 cap 08/25/18 02/03/20 Rx Fluticasone Propionate [Flonase 1 gm NASAL DAILY #1 bot 08/25/18 02/03/20 Rx Nasal Coward] guaiFENesin/DM ER [Mucinex DM] 2 tab PO Q12HR #30 tab 08/25/18 02/03/20 Rx - History PMHx:6MIs, CHF, 3rd degree heart block, stage 4 CKD, DMII, HLD, CVA, PVD PSHx: R shoulder surgery, L CEA, 3-4 RCA stents, L BKA, AICD with pacemaker, CABG x 3 with one stent placement FHx: non contributory Social: Current marijuana use; former tobacco user - quit 5 years ago, smoked from age 15 1-2packs/day, drinks alcohol 1x/mo - Review of Systems General: reports: fever/chills, weight/appetite/sleep changes, fatigue. denies : night sweats Eyes: denies: vision changes ENT: reports: nasal congestion, rhinorrhea Respiratory: reports: cough, congestion, shortness of breath, exercise intolerance Cardiovascular: denies: chest pain, palpitation, edema, paroxysmal nocturnal dyspnea, orthopnea Gastrointestinal: reports: nausea, vomiting. denies: diarrhea, constipation, abdominal pain Genitourinary: denies: dysuria Skin: denies: rashes Musculoskeletal: denies: pain, tenderness, stiffness, swelling Neurological: reports: weakness - Vital signs BP: 185/95, MAP: 125, Pulse: 81, Resp: 18, Temp: 98.4 (Oral), Pain: 0, O2 sat: 96 on (Room Air), Time: 02/03/2020 16:01. Weight 93kg - Physical Exam Constitutional: NAD, awake, alert and oriented, well developed HEENT: normocephalic and atraumatic, PERRLA, EOMI, no scleral icterus, grossly normal vision, grossly normal hearing -HEENT: MM dry Neck: supple, FROM, trachea midline Chest: no-tender to palpation Heart: RRR, normal S1/S2, no murmurs/rubs/gallops, pulses present Lungs: CTAB, no respiratory distress, good air movement, no rales/rhonchi, no wheezing, no retractions Abdomen: soft, non-tender, bowel sounds present, no masses/distention Musculoskeletal: normal tone, ROM grossly normal -Musculoskeletal: Left BKA Neurological: no focal deficit Skin: no rash/lesions -Skin: delayed cap refill Heme/Lymphatic: no unusual bruising or bleeding, no purpura, no petechia Psychiatric: normal mood and affect, good judgment and insight, intact recent and remote memory FMR H&P: Results - Labs Result Diagrams: 02/04/20 06:58 02/04/20 06:58 Lab results: WBC 13.8 thou/uL (4.8-10.8) H 02/03/20 13:13 Hgb 17.5 g/dL (12.0-16.0) H 02/03/20 13:13 Hct 52.7 % (36.0-47.0) H 02/03/20 13:13 MCV 90.4 fL (78.0-98.0) 02/03/20 13:13 Plt Count 287 thou/uL (130-400) 02/03/20 13:13 Neutrophils % 82.5 % (42.0-75.0) H 02/03/20 13:13 Sodium 138 mmol/L (136-145) 02/03/20 13:13 Potassium 4.5 mmol/L (3.5-5.1) 02/03/20 13:13 Chloride 101 mmol/L (98-107) 02/03/20 13:13 Carbon Dioxide 22 mmol/L (23-31) L 02/03/20 13:13 BUN 31 mg/dL (9.8-20.1) H 02/03/20 13:13 Creatinine 2.09 mg/dL (0.6-1.1) H 02/03/20 13:13 Glucose 147 mg/dL (80-115) H 02/03/20 13:13 Calcium 9.0 mg/dL (7.8-10.44) 02/03/20 13:13 Total Bilirubin 0.6 mg/dL (0.2-1.2) 02/03/20 13:13 AST 18 U/L (5-34) 02/03/20 13:13 ALT 10 U/L (8-55) 02/03/20 13:13 Alkaline Phosphatase 88 U/L (40-110) 02/03/20 13:13 Serum Total Protein 7.6 g/dL (6.0-8.3) 02/03/20 13:13 Albumin 3.8 g/dL (3.4-4.8) 02/03/20 13:13 - Radiology Interpretation Chest x-ray Status: report reviewed by me (no acute changes) FMR H&P: A/P - Problem List (1) [id number] kidney injury Current Visit: No Status: Acute Code(s): N17.9 - ACUTE KIDNEY FAILURE, UNSPECIFIED; N18.9 - CHRONIC KIDNEY DISEASE, UNSPECIFIED Qualifiers: Acute renal failure type: unspecified Chronic kidney disease stage: stage 3 (moderate) Qualified Code(s): N17.9 - Acute kidney failure, unspecified; N18.3 - Chronic kidney disease, stage 3 (moderate) (2) S/P CABG (coronary artery bypass graft) Current Visit: No Status: Acute Code(s): Z95.1 - PRESENCE OF AORTOCORONARY BYPASS GRAFT (3) CAD (coronary artery disease) Current Visit: No Status: Chronic Code(s): I25.10 - ATHSCL HEART DISEASE OF [place] CORONARY ARTERY W/O ANG PCTRS Qualifiers: Coronary Disease-Associated Artery/Lesion type: bypass graft [place] vs. transplanted heart: [place] heart Associated angina: without angina Qualified Code(s): I25.810 - Atherosclerosis of coronary artery bypass graft(s) without angina pectoris (4) COPD (chronic obstructive pulmonary disease) Current Visit: No Status: Chronic Qualifiers: Chronic bronchitis type: unspecified (5) Diastolic CHF Current Visit: No Status: Chronic Code(s): I50.30 - UNSPECIFIED DIASTOLIC ( CONGESTIVE) HEART FAILURE Qualifiers: (6) HTN (hypertension) Current Visit: No Status: Chronic Code(s): I10 - ESSENTIAL (PRIMARY) HYPERTENSION Qualifiers: Hypertension type: essential hypertension Qualified Code(s): I10 - Essential (primary) hypertension (7) Type II diabetes mellitus Current Visit: No Status: Chronic Qualifiers: Diabetes mellitus complication status: with kidney complications Diabetes mellitus complication detail: with chronic kidney disease Chronic kidney disease stage: stage 3 (moderate) (8) COVID-19 ruled out Current Visit: Yes Status: Acute Code(s): Z03.818 - ENCNTR FOR OBS FOR SUSP EXPSR TO OTH BIOLG AGENTS RULED OUT - Plan Viral syndrome - COVID vs gastroenteritis vs other viral - with intractable NV Patient presenting with Nausea/vomiting/diarrhea/SOB x 3 days. CXR showing no acute process. - COVID swab, flu and RVP ordered. Will order other COVID labs including ferritin, LDH, CRP, and procal. - Zofran PRN - IVF @ 100ml/hr - Admit to medical, obs Mild dehydration 2/2 above - Will give IVF - Continue to monitor ROLA on CKD stage 3B BUN/Cr .09 - LR @ 100ml/hr, monitor closely due to hx of CHF, strict I/Os, daily weights Leukocytosis - 2/2 above - N elevated, L decreased -> possible indicator of COVID Polycythemia - Likely hemoconcentration CAD - Significant hx. s/p AICD with pacemaker. Stable, no acute issues DMII - aware, ACHS, mild SS PAD - aware HTN - Hydralazine PRN. Resume home meds Hx of alcohol use - ASE protocol Hx of marijuana use, current - UDS pending DVT ppx: heparin Code Status: FULL PCP: Dr Kinsey - [facility] Dispo: admit to medical, pending clinical course Case discussed with Dr. Cheek FMR H&P: Upper Level - Plan Date/Time: 02/03/20 1646 I, [], have evaluated this patient and agree with findings/plan as outlined by internet site designer resident. Pertinent changes/additions are listed here. Addendum - Attending - Attending Attestation Date/Time: 02/04/20 [id number] I personally evaluated the patient and discussed the management with Dr. Lynn. I agree with the History, Examination, Assessment and Plan documented above with any addition or exceptions noted below. See my event note for details.
[2020-02-03] MEDS ORDERED: Insulin Regular 300 UNITS/3 ML VIAL SC PRN (16:50)
[2020-02-03] MEDS ORDERED: Acetaminophen 325 MG TAB PO PRN (16:50)
[2020-02-03] MEDS ORDERED: Calcium Carbonate 500 MG ChewTAB PO PRN (16:50)
[2020-02-03] MEDS ORDERED: Dextrose 50% Abboject 50 ML SYRINGE SLOW IVP PRN (16:50)
[2020-02-03] MEDS ORDERED: HumaLOG 300 UNITS/3 ML VIAL SC PRN (16:50)
[2020-02-03] MEDS ORDERED: Dextrose 5% in Water 1,000 ML IV PRN (16:50)
[2020-02-03] MEDS ORDERED: Ondansetron ODT 4 MG TAB PO PRN (16:50)
[2020-02-03] MEDS ORDERED: Ondansetron PF 4 MG/2 ML Vial IVP PRN (16:50)
--- NOTE | 2020-02-03 16:53 | RAD ---
RADIOGRAPH CHEST 1 VIEW: DATE: 02/03/2020 HISTORY: 64-year-old female with cough FINDINGS: There are no airspace densities, pulmonary edema, pneumothorax, or cardiomegaly. The lateral costophr enic angles are sharp. Sternotomy wires. Left sided ICD. IMPRESSION: No acute cardiopulmonary findings.
[2020-02-03] MEDS ORDERED: Benzonatate 100 MG CAP PO PRN (17:41)
[2020-02-03 17:58] VITALS: BMI 34.6
[2020-02-03] MEDS: hydrALAZINE 20 MG/ML VIAL SLOW IVP PRN ×2 (18:24→20:47)
[2020-02-03] MEDS: Lactated Ringer's 1,000 ML IV SCH (18:25)
[2020-02-03 19:27] LABS: Hemoglobin A1c 6.7 % (4.0-6.0)
[2020-02-03 19:28] LABS: Glucose POC Confirmation 106 mg/dl (80-115)
[2020-02-03] MEDS ORDERED: Zolpidem Tartrate 5 MG TAB PO PRN (20:06)
[2020-02-03] MEDS ORDERED: Polyethylene Glycol 3350 17 GM Packet PO PRN (20:06)
[2020-02-03] MEDS: Carvedilol 25 MG TAB PO SCH (20:31)
[2020-02-03] MEDS: Heparin 5,000 UNITS/ML VIAL SC SCH (20:32)
[2020-02-03] MEDS: Gabapentin 300 MG CAP PO SCH (20:32)
[2020-02-03] MEDS ORDERED: Furosemide 20 MG TAB PO SCH (21:00)
[2020-02-03] MEDS ORDERED: Atorvastatin Calcium 20 MG TAB PO SCH (21:00)
[2020-02-03 21:44] LABS: Amphetamine Not Detected (NotDetected); Barbiturates Screen Not Detected (NotDetected); Benzodiazepine Screen Detected (NotDetected); Cocaine Metabolite Screen Not Detected (NotDetected); Medtox Control Line Valid? VALID (VALID); Medtox Reader # READER 1; Methadone Not Detected (NotDetected); Methamphetamine Not Detected (NotDetected); Opiate Screen Not Detected (NotDetected); Oxycodone Screen Not Detected (NotDetected); Phencyclidine (PCP) Not Detected (NotDetected); THC/Cannabinoid Screen Detected (NotDetected); Tricyclic Screen Not Detected (NotDetected)
[2020-02-04] MEDS: Lactated Ringer's 1,000 ML IV SCH (04:09)
[2020-02-04] MEDS: hydrALAZINE 20 MG/ML VIAL SLOW IVP PRN (04:40)
--- NOTE | 2020-02-04 07:02 | PDOC.FM ---
- Subjective Subjective: NAEO. Patient resting in bed. Patient tolerating PO. This morning patient with elevated BP, requiring hydralazine. Patient otherwise asymptomatic. - Objective MAR Reviewed: Yes Vital Signs & Weight: Vital Signs (12 hours) Temp Pulse Resp BP BP BP Pulse Ox 02/04/20 05:40 179/74 H 02/04/20 04:40 77 180/84 H 02/04/20 03:56 98.1 F 77 18 183/93 H 92 L 02/03/20 23:30 98.5 F 82 18 169/73 H 92 L 02/03/20 20:50 98.3 F 77 20 205/92 H 93 L 02/03/20 20:47 77 205/92 H Weight Weight 96.644 kg I&O: 02/02/20 02/03/20 02/04/20 06:59 06:59 06:59 Intake Total 1999 Balance 1999 Result Diagrams: 02/04/20 06:58 02/04/20 06:58 Phys Exam - Physical Examination Constitutional: NAD HEENT: moist MMs, sclera anicteric Neck: supple, full ROM Respiratory: clear to auscultation bilateral Cardiovascular: RRR, no significant murmur, no rub Gastrointestinal: soft, non-tender, no distention, positive bowel sounds left BKA Neurological: non-focal, moves all 4 limbs Psychiatric: normal affect Skin: no rash, normal turgor, cap refill <2 seconds Dx/Plan (1) [id number] kidney injury Code(s): N17.9 - ACUTE KIDNEY FAILURE, UNSPECIFIED; N18.9 - CHRONIC KIDNEY DISEASE, UNSPECIFIED Status: Acute Qualifiers: Acute renal failure type: unspecified Chronic kidney disease stage: stage 3 (moderate) Qualified Code(s): N17.9 - Acute kidney failure, unspecified; N18.3 - Chronic kidney disease, stage 3 (moderate) (2) S/P CABG (coronary artery bypass graft) Code(s): Z95.1 - PRESENCE OF AORTOCORONARY BYPASS GRAFT Status: Acute (3) CAD (coronary artery disease) Code(s): I25.10 - ATHSCL HEART DISEASE OF [place] CORONARY ARTERY W/O ANG PCTRS Status: Chronic Qualifiers: Coronary Disease-Associated Artery/Lesion type: bypass graft [place] vs. transplanted heart: [place] heart Associated angina: without angina Qualified Code(s): I25.810 - Atherosclerosis of coronary artery bypass graft(s) without angina pectoris (4) COPD (chronic obstructive pulmonary disease) Status: Chronic Qualifiers: Chronic bronchitis type: unspecified (5) Diastolic CHF Code(s): I50.30 - UNSPECIFIED DIASTOLIC (CONGESTIVE) HEART FAILURE Status: Chronic Qualifiers: (6) HTN (hypertension) Code(s): I10 - ESSENTIAL (PRIMARY) HYPERTENSION Status: Chronic Qualifiers: Hypertension type: essential hypertension Qualified Code(s): I10 - Essential (primary) hypertension (7) Type II diabetes mellitus Status: Chronic Qualifiers: Diabetes mellitus complication status: with kidney complications Diabetes mellitus complication detail: with chronic kidney disease Chronic kidney disease stage: stage 3 (moderate) (8) Viral gastroenteritis Code(s): A08.4 - VIRAL INTESTINAL INFECTION, UNSPECIFIED Status: Ruled-out (9) COVID-19 ruled out Code(s): Z03.818 - ENCNTR FOR OBS FOR SUSP EXPSR TO [facility] BIOL[facility] AGENTS RULED OUT Status: Acute - Plan Plan: Viral syndrome - COVID vs gastroenteritis vs other viral - with intractable NV Patient presenting with Nausea/vomiting/diarrhea/SOB/fever x 3 days. CXR showing no acute process. - COVID swab NEG. LDH and CRP elevated. Ferritin normal. Procal negative. - RVP negative - Zofran PRN - Encourage PO hydration. Mild dehydration 2/2 above, resolved - s/p IVF, PO hydration - Continue to monitor ROLA on CKD stage 3B BUN/Cr /2.09, now improving - Monitor closely due to hx of CHF, strict I/Os, daily weights. Leukocytosis - 2/2 above - N elevated, L decreased -> possible indicator of COVID Polycythemia - Likely hemoconcentration CAD - Significant hx. s/p AICD with pacemaker. Stable, no acute issues DMII - aware, ACHS, mild SS - A1c 6.7 - consider discontinuing sulfonurea since at goal. Can consider starting metformin. - Patient has cough with lisinopril, will start losartan. PAD - aware HTN - Hydralazine PRN. Will start ARB due to cough with ACEI as patient has had several elevated BPs, will also provide renal protection due to DMII. Continue home furosemide. Continue to monitor BPs. Hx of alcohol use - ASE protocol Hx of marijuana use, current - UDS positive for marijuana, benzos DVT ppx: heparin Code Status: FULL PCP: Dr Kinsey - [facility] Dispo: possible dc later today Case discussed with Dr. Esparza Addendum - Attending - Attending Attestation Date/Time: 02/04/20 [id number] I personally evaluated the patient and discussed the management with Dr. Lynn I agree with the History, Examination, Assessment and Plan documented above with any addition or exceptions noted below- Patient without complaints. Feeling much better. Tolerating po. Afebrile VSS. A/P: 1) Gastroenteritis- improved; tolerating po; will d/c home today.
[2020-02-04] MEDS ORDERED: Atorvastatin Calcium 20 MG TAB PO SCH (07:06)
[2020-02-04 07:07] LABS: #Basophils 0.1 thou/uL (0.0-0.2); #Eosinphils 0.2 thou/uL (0.0-0.7); #Lymphocytes 2.3 thou/uL (1.20-3.40); #Monocytes 0.5 thou/uL (0.11-0.59); #Neutrophils 5.2 thou/uL (1.40-6.50); %Basophils 1.3 % (0.0-1.0); %Eosinophils 1.9 % (0.0-10.0); %Lymphocytes 27.3 % (21.0-51.0); %Monocytes 6.5 % (0.0-10.0); Hemoglobin 15.1 g/dL (12.0-16.0); Mean Corpuscular Hemoglobin 29.6 pg (27.0-31.0); Mean Corpuscular Volume 92.6 fL (78.0-98.0); Mean Platelet Volume 9.2 fL (7.4-10.4); Platelet Count 229 thou/uL (130-400); Red Blood Cell (RBC) Count 5.09 mill/uL (4.20-5.40); White Blood Cell (WBC) Count 8.3 thou/uL (4.8-10.8)
[2020-02-04 07:28] LABS: ALT (SGPT) 8 U/L (8-55); AST (SGOT) 16 U/L (5-34); Alkaline Phosphatase 69 U/L (40-110); Anion Gap 14 mmol/L (10-20); BUN (Urea Nitrogen) 27 mg/dL (9.8-20.1); Bilirubin, Total 0.5 mg/dL (0.2-1.2); Calc. Creatinine Clearance 49 mL/min (70-130); Calcium 7.8 mg/dL (7.8-10.44); Carbon Dioxide 24 mmol/L (23-31); Chloride 104 mmol/L (98-107); Estimated GFR-MDRD 29; Glucose 167 mg/dL (80-115); Sodium 138 mmol/L (136-145)
[2020-02-04] MEDS ORDERED: Enoxaparin Sodium 30 MG/0.3 ML SYRINGE SC SCH (09:00)
[2020-02-04] MEDS ORDERED: Aspirin Chewable 81 MG TAB PO SCH (09:00)
[2020-02-04] MEDS ORDERED: Clopidogrel Bisulfate 75 MG TAB PO SCH (09:00)
[2020-02-04] MEDS ORDERED: Lisinopril 10 MG TAB PO SCH (09:00)
[2020-02-04] MEDS ORDERED: Furosemide 40 MG TAB PO SCH (09:00)
[2020-02-04] MEDS: Carvedilol 25 MG TAB PO SCH (09:31)
[2020-02-04] MEDS: Heparin 5,000 UNITS/ML VIAL SC SCH ×2 (09:31→16:18)
[2020-02-04] MEDS: Gabapentin 300 MG CAP PO SCH (09:31)
[2020-02-04 11:20] LABS: SARS-CoV-2 MS2 Positive; SARS-CoV-2 N Gene Negative; SARS-CoV-2 S Gene Negative; SARS-CoV-2 orf1ab Negative
[2020-02-04] MEDS ORDERED: Losartan 25 MG TAB PO SCH (12:30)
[2020-02-04] MEDS ORDERED: metFORMIN 500 MG TAB PO SCH (14:45)
[2020-02-04 16:07] VITALS: BP 138/73; TEMP 98.5
[2020-02-04] MEDS ORDERED: Atorvastatin Calcium 40 MG TAB PO SCH (21:00)
[2020-02-04] MEDS ORDERED: Gabapentin 300 MG CAP PO SCH (21:00)
--- NOTE | 2020-02-05 03:37 | DIS ---
DATE OF ADMISSION: 02/03/2020 DATE OF DISCHARGE: 02/04/2020 RESIDENT: Monae Lynn MD ADMITTING ATTENDING: Javon Cheek MD DISCHARGE ATTENDING: Snow Esparza MD CONSULTS: None. PROCEDURES: None. DISCHARGE MEDICATIONS: 1. Lipitor 40 mg at bedtime. 2. Tessalon 100 mg oral every 4 hours as needed. 3. Gabapentin 600 mg twice daily. 4. Losartan 25 mg oral daily. 5. Metformin 500 mg twice daily. 6. Plavix 75 mg oral daily. 7. Coreg 25 mg oral twice daily. 8. Zofran ODT sublingual every 6 hours as needed. 9. Ambien 5 mg oral at bedtime as needed. 10. Aspirin 81 mg oral daily. 11. MiraLAX 17 g oral daily as needed. 12. Lasix 20 mg every evening, 40 mg every morning. 13. Vitamin D3 at 1000 units oral daily. 14. Sertraline 100 mg oral daily. 15. Flonase snasal daily. 16. Mucinex 2 tab oral every 12 hours. DISCONTINUED MEDICATIONS: 1. Simvastatin. 2. Gabapentin 3 times a day. 3. Glipizide. PRIMARY DIAGNOSES: 1. Viral gastroenteritis. 2. Mild dehydration. 3. Acute kidney injury on chronic kidney disease, stage 3D. SECONDARY DIAGNOSES: 1. Coronary artery disease. 2. Diabetes type 2. 3. Peripheral artery disease. 4. Hypertension. 5. History of alcohol and marijuana use. HISTORY OF PRESENT ILLNESS/HOSPITAL COURSE: This is a 64-year-old female, who presented to the ER with a history of fever, shortness of breath, nausea and vomiting x3 days. The patient said that this started after an episode of binge drinking last week. The patient states that two days ago, she had a fever up to 101.7 at home. She denied any sick contacts or recent travel, but due to her fever and shortness of breath, the patient was tested for COVID. The patient's test resulted negative on day #2 of hospitalization. The patient had a negative respiratory viral panel as well. We believe her symptoms were likely due to a viral gastroenteritis. Her kidney function was bumped and her Hgb elevated thought to be due to mild dehydration, she received fluids with improvement in her labs the next day. On day #2, the patient was tolerating p.o. well. The patient's blood pressure was elevated throughout her stay and we added losartan to help with this. She was agreeable. The patient's A1c was found to be 6.7. We discontinued the patient' s sulfonylurea and started metformin. She will need to follow up on these as an outpatient with her PCP. Encouraged the patient to p.o. hydrate at home. DISPOSITION: Stable. DISCHARGE INSTRUCTIONS: 1. Location: Home. 2. Activity: Ad oneil. 3. Diet: Consistent carbohydrate and heart healthy. 4. Follow up with PCP, Dr. Kinsey within 1week. Job ID: [id number] MTDD
[2020-02-05] MEDS ORDERED: Losartan 25 MG TAB PO SCH (09:00)
== END 2020-02-04 17:51 | disposition home or self-care (01) ==
LOC: ERS 11:52 → T4-B 15:57
PROVIDERS: ADMIT Family Medicine; ATTEND Family Medicine
DX: A08.4 Viral intestinal infection, unspecified (principal); E86.0 Dehydration; I13.0 Hypertensive heart and chronic kidney disease with heart failure and stage 1 through stage 4 chronic kidney disease, or unspecified chronic kidney disease; E11.22 Type 2 diabetes mellitus with diabetic chronic kidney disease; N18.3 Chronic kidney disease, stage 3 (moderate); I50.32 Chronic diastolic (congestive) heart failure; N17.9 Acute kidney failure, unspecified; I25.10 Atherosclerotic heart disease of native coronary artery without angina pectoris; E11.51 Type 2 diabetes mellitus with diabetic peripheral angiopathy without gangrene; E78.5 Hyperlipidemia, unspecified; I44.2 Atrioventricular block, complete; J44.9 Chronic obstructive pulmonary disease, unspecified; D72.829 Elevated white blood cell count, unspecified; D75.1 Secondary polycythemia; F12.10 Cannabis abuse, uncomplicated; R50.9 Fever, unspecified; R06.02 Shortness of breath; Z20.828 Contact with and (suspected) exposure to other viral communicable diseases; Z86.73 Personal history of transient ischemic attack (TIA), and cerebral infarction without residual deficits; Z87.891 Personal history of nicotine dependence; Z79.82 Long term (current) use of aspirin; Z79.899 Other long term (current) drug therapy; Z95.1 Presence of aortocoronary bypass graft; Z95.5 Presence of coronary angioplasty implant and graft; Z95.810 Presence of automatic (implantable) cardiac defibrillator; Z89.512 Acquired absence of left leg below knee
CPT/HCPCS: 71045; 80053 ×2; 80306; 82010; 82728; 82947; 82962 ×2; 83036; 83615; 83880; 84145; 85025 ×2; 86140; 87633; 96361 ×3; 96374; 96375 ×2; 96376; 99285; G0378 ×3; U0003; 36415; 36416; 87635; J0360; J1644; J2060; J2405

== ENCOUNTER 2020-02-12 18:23 | Emergency (ER) | payer MEDICARE, OTHER ==
[2020-02-12 20:17] LABS: #Basophils 0.1 thou/uL (0.0-0.2); #Eosinphils 0.2 thou/uL (0.0-0.7); #Lymphocytes 2.8 thou/uL (1.20-3.40); #Monocytes 0.7 thou/uL (0.11-0.59); #Neutrophils 7.4 thou/uL (1.40-6.50); %Basophils 0.9 % (0.0-1.0); %Eosinophils 1.7 % (0.0-10.0); %Lymphocytes 25.5 % (21.0-51.0); %Monocytes 5.9 % (0.0-10.0); %Neutrophils 66.1 % (42.0-75.0); Hemoglobin 16.9 g/dL (12.0-16.0); Mean Corpuscular HGB CONC 32.4 g/dL (32.0-36.0); Mean Corpuscular Volume 92.6 fL (78.0-98.0); Mean Platelet Volume 8.7 fL (7.4-10.4); Platelet Count 309 thou/uL (130-400); RBC Distribution Width 11.7 % (11.5-14.5); Red Blood Cell (RBC) Count 5.63 mill/uL (4.20-5.40); White Blood Cell (WBC) Count 11.1 thou/uL (4.8-10.8)
[2020-02-12 20:34] LABS: ALT (SGPT) 11 U/L (8-55); AST (SGOT) 13 U/L (5-34); Albumin 3.5 g/dL (3.4-4.8); Alkaline Phosphatase 82 U/L (40-110); Anion Gap 14 mmol/L (10-20); BUN (Urea Nitrogen) 27 mg/dL (9.8-20.1); Bilirubin, Total 0.4 mg/dL (0.2-1.2); Calc. Creatinine Clearance 0 mL/min (70-130); Calcium 8.6 mg/dL (7.8-10.44); Carbon Dioxide 24 mmol/L (23-31); Chloride 101 mmol/L (98-107); Estimated GFR-MDRD 24; Globulin 3.5 g/dL (2.4-3.5); Glucose 164 mg/dL (80-115); Potassium 4.1 mmol/L (3.5-5.1); Sodium 135 mmol/L (136-145)
[2020-02-12 20:35] LABS: Bilirubin Negative (Negative); Blood, Urine 1+ (Negative); Clarity Turbid (Clear); Glucose, Urine (Dipstick) 70 mg/dL (Negative); Leukocyte Negative Leu/uL (Negative); Nitrite Negative (Negative); Protein, Urine (Dipstick) Greater than 600 mg/dL (Neg-Trace); RBC/HPF 0-3 HPF (0-3); Urobilinogen Normal mg/dL (Less than 2)
[2020-02-12 20:36] LABS: Bacteria/HPF 1+ HPF (None Seen)
--- NOTE | 2020-02-12 20:42 | RAD ---
CHEST ONE VIEW: 02/12/20 INDICATION: History of cough. COMPARISON: Prior study dated 02/03/20. FINDINGS: Stable mild cardiomegaly, post CABG change and dual lead AICD. No consolidation, pleural effusion, or pneumothorax evident. No acute osseous abnormality is evident. IMPRESSION: No acute cardiopulmonary abnormality. POS: BH
[2020-02-12] MEDS ORDERED: Acetaminophen 500 MG TAB ONE (22:03)
[2020-02-13 11:55] LABS: SARS-CoV-2 MS2 Positive; SARS-CoV-2 N Gene Negative; SARS-CoV-2 S Gene Negative; SARS-CoV-2 orf1ab Negative
== END 2020-02-12 23:58 | disposition home or self-care (01) ==
LOC: ERS 18:23
DX: J06.9 Acute upper respiratory infection, unspecified (principal); R50.9 Fever, unspecified; Z20.828 Contact with and (suspected) exposure to other viral communicable diseases; I13.0 Hypertensive heart and chronic kidney disease with heart failure and stage 1 through stage 4 chronic kidney disease, or unspecified chronic kidney disease; I50.9 Heart failure, unspecified; N18.4 Chronic kidney disease, stage 4 (severe); E11.22 Type 2 diabetes mellitus with diabetic chronic kidney disease; I25.2 Old myocardial infarction; F41.9 Anxiety disorder, unspecified; F32.9 Major depressive disorder, single episode, unspecified; E78.00 Pure hypercholesterolemia, unspecified; E78.5 Hyperlipidemia, unspecified; I73.9 Peripheral vascular disease, unspecified; Z87.891 Personal history of nicotine dependence; Z79.899 Other long term (current) drug therapy; Z79.891 Long term (current) use of opiate analgesic; Z79.82 Long term (current) use of aspirin; Z86.73 Personal history of transient ischemic attack (TIA), and cerebral infarction without residual deficits
CPT/HCPCS: 71045; 80053; 85025; 87086; 87804 ×2; 99283; U0003; 36415; 81003; 81015; 87635

== ENCOUNTER 2020-12-14 10:56 | Inpatient (IN) | payer MEDICARE ==
[2020-12-14] MEDS ORDERED: Labetalol HCl 100 MG/20 ML VIAL ONE (11:12)
[2020-12-14] MEDS ORDERED: Furosemide 40 MG/4 ML VIAL ONE (11:12)
[2020-12-14 11:39] LABS: #Eosinphils 0.2 thou/uL (0.0-0.7); #Lymphocytes 1.1 thou/uL (1.20-3.40); #Monocytes 0.4 thou/uL (0.11-0.59); #Neutrophils 7.5 thou/uL (1.40-6.50); %Basophils 0.3 % (0.0-1.0); %Eosinophils 2.6 % (0.0-10.0); %Monocytes 4.5 % (0.0-10.0); %Neutrophils 80.5 % (42.0-75.0); Hemoglobin 13.3 g/dL (12.0-16.0); Mean Corpuscular HGB CONC 31.5 g/dL (32.0-36.0); Mean Corpuscular Hemoglobin 28.9 pg (27.0-31.0); Mean Corpuscular Volume 91.7 fL (78.0-98.0); Mean Platelet Volume 8.9 fL (7.4-10.4); Platelet Count 256 thou/uL (130-400); RBC Distribution Width 12.1 % (11.5-14.5); Red Blood Cell (RBC) Count 4.59 mill/uL (4.20-5.40); White Blood Cell (WBC) Count 9.3 thou/uL (4.8-10.8)
[2020-12-14 11:55] LABS: ALT (SGPT) 9 U/L (8-55); AST (SGOT) 11 U/L (5-34); Alkaline Phosphatase 83 U/L (40-110); Anion Gap 16 mmol/L (10-20); BUN (Urea Nitrogen) 35 mg/dL (9.8-20.1); Bilirubin, Total 0.3 mg/dL (0.2-1.2); Calc. Creatinine Clearance 0 mL/min (70-130); Calcium 8.3 mg/dL (7.8-10.44); Carbon Dioxide 22 mmol/L (23-31); Chloride 108 mmol/L (98-107); Globulin 3.4 g/dL (2.4-3.5); Glucose 212 mg/dL (80-115); Potassium 4.9 mmol/L (3.5-5.1); Protein, Total 6.4 g/dL (5.8-8.1); Sodium 141 mmol/L (136-145)
[2020-12-14] MEDS ORDERED: niCARdipine 20MG In NaCl 20 MG/200 ML BAG ONE (12:08)
[2020-12-14 12:20] LABS: CKMB 2.1 ng/mL (0-6.6)
[2020-12-14] MEDS ORDERED: Ondansetron ODT 4 MG TAB PO PRN (13:47)
[2020-12-14] MEDS ORDERED: Ondansetron PF 4 MG/2 ML Vial IVP PRN (13:47)
[2020-12-14] MEDS ORDERED: Dextrose 50% Abboject 50 ML SYRINGE SLOW IVP PRN (13:47)
[2020-12-14] MEDS ORDERED: Dextrose 5% in Water 1,000 ML IV PRN (13:47)
[2020-12-14 15:23] VITALS: BMI 33.9
[2020-12-14] MEDS: hydrALAZINE 20 MG/ML VIAL SLOW IVP PRN (15:27)
[2020-12-14 16:03] LABS: Hemoglobin A1c 7.1 % (4.0-6.0)
[2020-12-14] MEDS: Gabapentin 300 MG CAP PO SCH ×2 (16:12→20:46)
[2020-12-14 16:30] LABS: Troponin I 0.078 ng/mL (< 0.028)
[2020-12-14] MEDS: Carvedilol 25 MG TAB PO SCH (16:41)
[2020-12-14] MEDS: Acetaminophen 325 MG TAB PO PRN (16:42)
[2020-12-14] MEDS ORDERED: niCARdipine 25 MG in Sodium Chloride 0.9% 250 ML 240 ML IVPB SCH (17:45)
[2020-12-14 19:13] LABS: Troponin I 0.057 ng/mL (< 0.028)
[2020-12-14] MEDS ORDERED: Losartan 25 MG TAB PO SCH (21:00)
[2020-12-14] MEDS ORDERED: Simvastatin 40 MG TAB PO SCH (21:00)
[2020-12-14] MEDS: HumaLOG 300 UNITS/3 ML VIAL SC PRN (21:01)
[2020-12-15] MEDS: hydrALAZINE 20 MG/ML VIAL SLOW IVP PRN ×2 (01:27→05:17)
[2020-12-15 04:42] LABS: #Basophils 0.1 thou/uL (0.0-0.2); #Eosinphils 0.3 thou/uL (0.0-0.7); #Lymphocytes 2.4 thou/uL (1.20-3.40); #Monocytes 0.7 thou/uL (0.11-0.59); #Neutrophils 7.1 thou/uL (1.40-6.50); %Basophils 1.1 % (0.0-1.0); %Eosinophils 2.6 % (0.0-10.0); %Monocytes 6.7 % (0.0-10.0); %Neutrophils 66.6 % (42.0-75.0); Hemoglobin 12.9 g/dL (12.0-16.0); Mean Corpuscular HGB CONC 33.5 g/dL (32.0-36.0); Mean Corpuscular Volume 92.5 fL (78.0-98.0); Platelet Count 245 thou/uL (130-400); Red Blood Cell (RBC) Count 4.18 mill/uL (4.20-5.40); White Blood Cell (WBC) Count 10.6 thou/uL (4.8-10.8)
[2020-12-15 05:04] LABS: Anion Gap 15 mmol/L (10-20); BUN (Urea Nitrogen) 38 mg/dL (9.8-20.1); Calc. Creatinine Clearance 24 mL/min (70-130); Calcium 8.3 mg/dL (7.8-10.44); Carbon Dioxide 25 mmol/L (23-31); Chloride 107 mmol/L (98-107); Glucose 115 mg/dL (80-115); Potassium 4.5 mmol/L (3.5-5.1); Sodium 142 mmol/L (136-145)
[2020-12-15] MEDS ORDERED: Labetalol HCl 100 MG/20 ML VIAL SLOW IVP PRN (05:49)
[2020-12-15] MEDS: Carvedilol 25 MG TAB PO SCH ×2 (06:25→21:13)
[2020-12-15] MEDS ORDERED: Amlodipine 5 MG TAB PO SCH ×2 (07:00→09:00)
[2020-12-15] MEDS: Cholecalciferol 1,000 UNITS (25 MCG) TAB PO SCH (08:38)
[2020-12-15] MEDS: Clopidogrel Bisulfate 75 MG TAB PO SCH (08:38)
[2020-12-15] MEDS: Gabapentin 300 MG CAP PO SCH ×2 (08:38→21:13)
[2020-12-15] MEDS: Aspirin Chewable 81 MG TAB PO SCH (08:38)
[2020-12-15] MEDS: Enoxaparin Sodium 30 MG/0.3 ML SYRINGE SC SCH (08:38)
[2020-12-15] MEDS: Lidocaine 5% Patch TD SCH (08:39)
[2020-12-15 08:52] LABS: SARS-CoV-2 PCR by NAA DETECTED (NotDetected)
[2020-12-15] MEDS ORDERED: Losartan 25 MG TAB PO SCH (09:00)
[2020-12-15] MEDS ORDERED: Dexamethasone 4 MG TAB PO SCH (09:00)
[2020-12-15] MEDS ORDERED: buPROPion HCl 100 MG TAB PO SCH ×3 (09:00→14:00)
[2020-12-15] MEDS: hydrALAZINE 25 MG TAB PO SCH ×3 (10:08→21:13)
[2020-12-15] MEDS: cloNIDine 0.1 MG TAB PO SCH ×2 (10:08→21:11)
[2020-12-15] MEDS: Fluticasone Propionate Nasal Spray 16 gm Bottle NASAL SCH (10:10)
[2020-12-15] MEDS: HumaLOG 300 UNITS/3 ML VIAL SC PRN ×2 (11:56→18:19)
[2020-12-15] MEDS ORDERED: Sodium Chloride 0.65% Nasal 44 ML BOT EA NARE PRN (13:36)
[2020-12-15 15:36] LABS: Bilirubin Negative (Negative); Blood, Urine Negative (Negative); Clarity Clear (Clear); Glucose, Urine (Dipstick) 300 mg/dL (Negative); Ketone, Urine Negative (Negative); Leukocyte Negative Leu/uL (Negative); Nitrite Negative (Negative); Protein, Urine (Dipstick) 600 mg/dL (Neg-Trace); RBC/HPF 0-3 HPF (0-3); Specific Gravity, Urine 1.016 (1.002-1.036); Squamous Epithelial 0-3 HPF (0-3); Urobilinogen Normal mg/dL (Less than 2); WBC/HPF 0-3 HPF (0-3)
[2020-12-15 15:45] LABS: Bacteria/HPF 1+ HPF (None Seen)
[2020-12-15] MEDS: LIDOCAINE Patch Removal TOP SCH (21:14)
[2020-12-15] MEDS: Atorvastatin Calcium 40 MG TAB PO SCH (21:14)
[2020-12-15] MEDS ORDERED: traZODone HCl 50 MG TAB PO SCH (21:30)
[2020-12-16 05:42] LABS: #Basophils 0.1 thou/uL (0.0-0.2); #Eosinphils 0.3 thou/uL (0.0-0.7); #Lymphocytes 2.2 thou/uL (1.20-3.40); #Monocytes 0.5 thou/uL (0.11-0.59); #Neutrophils 4.3 thou/uL (1.40-6.50); %Basophils 0.9 % (0.0-1.0); %Eosinophils 3.7 % (0.0-10.0); %Lymphocytes 29.9 % (21.0-51.0); %Monocytes 7.3 % (0.0-10.0); %Neutrophils 58.2 % (42.0-75.0); Hemoglobin 12.3 g/dL (12.0-16.0); Mean Corpuscular HGB CONC 32.4 g/dL (32.0-36.0); Mean Corpuscular Hemoglobin 29.8 pg (27.0-31.0); Mean Corpuscular Volume 91.9 fL (78.0-98.0); Mean Platelet Volume 9.3 fL (7.4-10.4); Platelet Count 211 thou/uL (130-400); Red Blood Cell (RBC) Count 4.14 mill/uL (4.20-5.40); White Blood Cell (WBC) Count 7.5 thou/uL (4.8-10.8)
[2020-12-16 06:03] LABS: Anion Gap 14 mmol/L (10-20); BUN (Urea Nitrogen) 45 mg/dL (9.8-20.1); Calc. Creatinine Clearance 23 mL/min (70-130); Calcium 7.9 mg/dL (7.8-10.44); Carbon Dioxide 23 mmol/L (23-31); Chloride 107 mmol/L (98-107); Glucose 142 mg/dL (80-115); Potassium 4.5 mmol/L (3.5-5.1); Sodium 139 mmol/L (136-145)
[2020-12-16] MEDS ORDERED: Albumin 25% 25 GM/100 ML BOT IVPB ONE (07:06)
[2020-12-16] MEDS: Albumin 25% 25 GM/100 ML BOT IVPB SCH ×3 (07:46→21:03)
[2020-12-16] MEDS: Enoxaparin Sodium 30 MG/0.3 ML SYRINGE SC SCH (07:47)
[2020-12-16] MEDS: Amlodipine 5 MG TAB PO SCH (07:48)
[2020-12-16] MEDS: Aspirin Chewable 81 MG TAB PO SCH (07:48)
[2020-12-16] MEDS: buPROPion HCl 100 MG TAB PO SCH (07:49)
[2020-12-16] MEDS: Cholecalciferol 1,000 UNITS (25 MCG) TAB PO SCH (07:50)
[2020-12-16] MEDS: cloNIDine 0.1 MG TAB PO SCH ×2 (07:50→20:59)
[2020-12-16] MEDS: Clopidogrel Bisulfate 75 MG TAB PO SCH (07:50)
[2020-12-16] MEDS: Carvedilol 25 MG TAB PO SCH ×2 (07:50→20:59)
[2020-12-16] MEDS: Fluticasone Propionate Nasal Spray 16 gm Bottle NASAL SCH (07:51)
[2020-12-16] MEDS: Gabapentin 300 MG CAP PO SCH (07:51)
[2020-12-16] MEDS: hydrALAZINE 25 MG TAB PO SCH ×3 (07:52→21:00)
[2020-12-16] MEDS: Lidocaine 5% Patch TD SCH ×2 (07:53→08:16)
[2020-12-16] MEDS ORDERED: Dexamethasone 4 MG TAB PO SCH (08:00)
[2020-12-16 11:09] LABS: ANA Symphony (Qualitative) Negative (Negative); ANA Symphony (Quantitative) 0.1 Ratio (< 0.7 Negative); dsDNA IgG Antibody 1.2 IU/mL (<10 Negative)
[2020-12-16] MEDS: HumaLOG 300 UNITS/3 ML VIAL SC PRN ×2 (12:04→21:03)
[2020-12-16] MEDS: Heparin 5,000 UNITS/ML VIAL SC SCH ×2 (14:44→21:02)
[2020-12-16] MEDS: Melatonin 3 MG TAB PO PRN (22:31)
[2020-12-16] MEDS: LIDOCAINE Patch Removal TOP SCH (22:36)
[2020-12-16] MEDS: Atorvastatin Calcium 40 MG TAB PO SCH (22:37)
[2020-12-17] MEDS: Albumin 25% 25 GM/100 ML BOT IVPB SCH (02:46)
[2020-12-17 06:32] LABS: #Basophils 0.1 thou/uL (0.0-0.2); #Eosinphils 0.3 thou/uL (0.0-0.7); #Lymphocytes 1.8 thou/uL (1.20-3.40); #Monocytes 0.6 thou/uL (0.11-0.59); #Neutrophils 5.2 thou/uL (1.40-6.50); %Basophils 0.6 % (0.0-1.0); %Eosinophils 3.9 % (0.0-10.0); %Lymphocytes 22.5 % (21.0-51.0); Hemoglobin 10.9 g/dL (12.0-16.0); Mean Corpuscular HGB CONC 33.4 g/dL (32.0-36.0); Mean Corpuscular Volume 92.7 fL (78.0-98.0); Mean Platelet Volume 9.8 fL (7.4-10.4); Platelet Count 188 thou/uL (130-400); RBC Distribution Width 11.9 % (11.5-14.5); Red Blood Cell (RBC) Count 3.53 mill/uL (4.20-5.40); White Blood Cell (WBC) Count 7.8 thou/uL (4.8-10.8)
[2020-12-17 06:44] LABS: Anion Gap 15 mmol/L (10-20); BUN (Urea Nitrogen) 55 mg/dL (9.8-20.1); Calc. Creatinine Clearance 22 mL/min (70-130); Carbon Dioxide 22 mmol/L (23-31); Chloride 105 mmol/L (98-107); Glucose 142 mg/dL (80-115); Potassium 4.3 mmol/L (3.5-5.1); Sodium 138 mmol/L (136-145)
[2020-12-17] MEDS: Heparin 5,000 UNITS/ML VIAL SC SCH ×3 (09:17→20:58)
[2020-12-17] MEDS: buPROPion HCl 100 MG TAB PO SCH (09:18)
[2020-12-17] MEDS: cloNIDine 0.1 MG TAB PO SCH ×2 (09:21→20:58)
[2020-12-17] MEDS: Amlodipine 5 MG TAB PO SCH (09:21)
[2020-12-17] MEDS: hydrALAZINE 25 MG TAB PO SCH ×3 (09:21→20:57)
[2020-12-17] MEDS: Cholecalciferol 1,000 UNITS (25 MCG) TAB PO SCH (09:22)
[2020-12-17] MEDS: Clopidogrel Bisulfate 75 MG TAB PO SCH (09:22)
[2020-12-17] MEDS: Carvedilol 25 MG TAB PO SCH ×2 (09:22→20:58)
[2020-12-17] MEDS: Aspirin Chewable 81 MG TAB PO SCH (09:23)
[2020-12-17] MEDS: Gabapentin 300 MG CAP PO SCH (09:23)
[2020-12-17] MEDS: Fluticasone Propionate Nasal Spray 16 gm Bottle NASAL SCH (09:24)
[2020-12-17 10:15] LABS: Alpha 1 0.2 g/dL (0.0-0.4); Alpha 2 1.1 g/dL (0.4-1.0); Gamma 0.7 g/dL (0.4-1.8); Globulin, Total 3.1 g/dL (2.2-3.9); M-Spike Not Observed g/dL (Not Observed)
[2020-12-17] MEDS ORDERED: Polyethylene Glycol 3350 17 GM Packet PO PRN (10:24)
[2020-12-17] MEDS: HumaLOG 300 UNITS/3 ML VIAL SC PRN ×2 (11:50→16:30)
[2020-12-17 15:17] LABS: Cytoplasmic (C-ANCA) <1:20 titer (Neg:<1:20); Myeloperoxidase AutoAbs <9.0 U/mL (0.0-9.0); Perinuclear (P-ANCA) <1:20 titer (Neg:<1:20); Proteinase-3 AutoAbs Less than 3.5 U/mL (0.0-3.5)
[2020-12-17] MEDS: Melatonin 3 MG TAB PO PRN (20:57)
[2020-12-17] MEDS: Senokot S 8.6-50 MG TAB PO SCH (20:58)
[2020-12-17] MEDS: Atorvastatin Calcium 40 MG TAB PO SCH (20:58)
[2020-12-17] MEDS: LIDOCAINE Patch Removal TOP SCH (21:12)
[2020-12-18 05:29] LABS: #Eosinphils 0.3 thou/uL (0.0-0.7); #Lymphocytes 1.6 thou/uL (1.20-3.40); #Monocytes 0.5 thou/uL (0.11-0.59); #Neutrophils 6.1 thou/uL (1.40-6.50); %Basophils 0.4 % (0.0-1.0); %Lymphocytes 18.4 % (21.0-51.0); %Monocytes 6.2 % (0.0-10.0); %Neutrophils 71.9 % (42.0-75.0); Hemoglobin 11.6 g/dL (12.0-16.0); Mean Corpuscular HGB CONC 32.7 g/dL (32.0-36.0); Mean Corpuscular Hemoglobin 30.1 pg (27.0-31.0); Mean Corpuscular Volume 92.1 fL (78.0-98.0); Mean Platelet Volume 9.7 fL (7.4-10.4); Platelet Count 201 thou/uL (130-400); RBC Distribution Width 11.8 % (11.5-14.5); Red Blood Cell (RBC) Count 3.86 mill/uL (4.20-5.40); White Blood Cell (WBC) Count 8.5 thou/uL (4.8-10.8)
[2020-12-18] MEDS: hydrALAZINE 20 MG/ML VIAL SLOW IVP PRN (05:37)
[2020-12-18 05:40] LABS: Anion Gap 13 mmol/L (10-20); BUN (Urea Nitrogen) 53 mg/dL (9.8-20.1); Calc. Creatinine Clearance 22 mL/min (70-130); Calcium 8.7 mg/dL (7.8-10.44); Carbon Dioxide 25 mmol/L (23-31); Chloride 105 mmol/L (98-107); Glucose 157 mg/dL (80-115); Potassium 5.4 mmol/L (3.5-5.1); Sodium 138 mmol/L (136-145)
[2020-12-18] MEDS ORDERED: HumaLOG 300 UNITS/3 ML VIAL SC SCH (08:00)
[2020-12-18] MEDS ORDERED: Milk Of Magnesia 30 ML UDCUP PO SCH (08:15)
[2020-12-18] MEDS: Gabapentin 300 MG CAP PO SCH (08:35)
[2020-12-18] MEDS: Polyethylene Glycol 3350 17 GM Packet PO SCH (08:35)
[2020-12-18] MEDS: buPROPion HCl 100 MG TAB PO SCH (08:35)
[2020-12-18] MEDS: Amlodipine 5 MG TAB PO SCH (08:36)
[2020-12-18] MEDS: Clopidogrel Bisulfate 75 MG TAB PO SCH (08:36)
[2020-12-18] MEDS: Aspirin Chewable 81 MG TAB PO SCH (08:36)
[2020-12-18] MEDS: cloNIDine 0.1 MG TAB PO SCH ×2 (08:36→21:15)
[2020-12-18] MEDS: Senokot S 8.6-50 MG TAB PO SCH ×2 (08:37→21:14)
[2020-12-18] MEDS: hydrALAZINE 25 MG TAB PO SCH ×3 (08:37→21:14)
[2020-12-18] MEDS: Heparin 5,000 UNITS/ML VIAL SC SCH ×3 (08:37→21:15)
[2020-12-18] MEDS: Cholecalciferol 1,000 UNITS (25 MCG) TAB PO SCH (08:37)
[2020-12-18] MEDS: Carvedilol 25 MG TAB PO SCH ×2 (08:37→21:14)
[2020-12-18] MEDS: Fluticasone Propionate Nasal Spray 16 gm Bottle NASAL SCH (08:54)
[2020-12-18] MEDS: HumaLOG 300 UNITS/3 ML VIAL SC PRN (11:01)
[2020-12-18] MEDS: Melatonin 3 MG TAB PO PRN (21:14)
[2020-12-18] MEDS: Atorvastatin Calcium 40 MG TAB PO SCH (21:14)
[2020-12-18] MEDS: Acetaminophen 325 MG TAB PO PRN (21:18)
[2020-12-19] MEDS: LIDOCAINE Patch Removal TOP SCH ×2 (00:07→21:56)
[2020-12-19 05:19] LABS: #Basophils 0.1 thou/uL (0.0-0.2); #Eosinphils 0.2 thou/uL (0.0-0.7); #Lymphocytes 1.4 thou/uL (1.20-3.40); #Monocytes 0.4 thou/uL (0.11-0.59); #Neutrophils 4.6 thou/uL (1.40-6.50); %Eosinophils 2.6 % (0.0-10.0); %Lymphocytes 20.6 % (21.0-51.0); %Monocytes 6.7 % (0.0-10.0); %Neutrophils 69.2 % (42.0-75.0); Hemoglobin 11.4 g/dL (12.0-16.0); Mean Corpuscular HGB CONC 31.5 g/dL (32.0-36.0); Mean Corpuscular Hemoglobin 29.1 pg (27.0-31.0); Mean Corpuscular Volume 92.4 fL (78.0-98.0); Mean Platelet Volume 9.7 fL (7.4-10.4); Platelet Count 204 thou/uL (130-400); Red Blood Cell (RBC) Count 3.92 mill/uL (4.20-5.40); White Blood Cell (WBC) Count 6.7 thou/uL (4.8-10.8)
[2020-12-19 05:41] LABS: Anion Gap 12 mmol/L (10-20); BUN (Urea Nitrogen) 48 mg/dL (9.8-20.1); Calc. Creatinine Clearance 22 mL/min (70-130); Calcium 8.5 mg/dL (7.8-10.44); Carbon Dioxide 25 mmol/L (23-31); Chloride 105 mmol/L (98-107); Glucose 147 mg/dL (80-115); Potassium 5.2 mmol/L (3.5-5.1); Sodium 137 mmol/L (136-145)
[2020-12-19] MEDS: buPROPion HCl 100 MG TAB PO SCH (08:17)
[2020-12-19] MEDS: Heparin 5,000 UNITS/ML VIAL SC SCH ×3 (08:18→21:55)
[2020-12-19] MEDS: Fluticasone Propionate Nasal Spray 16 gm Bottle NASAL SCH (08:19)
[2020-12-19] MEDS: Carvedilol 25 MG TAB PO SCH ×2 (08:19→21:54)
[2020-12-19] MEDS: hydrALAZINE 25 MG TAB PO SCH ×3 (08:19→21:54)
[2020-12-19] MEDS: cloNIDine 0.1 MG TAB PO SCH ×2 (08:20→21:54)
[2020-12-19] MEDS: Gabapentin 300 MG CAP PO SCH (08:21)
[2020-12-19] MEDS: Amlodipine 5 MG TAB PO SCH (08:21)
[2020-12-19] MEDS: Aspirin Chewable 81 MG TAB PO SCH (08:21)
[2020-12-19] MEDS: Cholecalciferol 1,000 UNITS (25 MCG) TAB PO SCH (08:21)
[2020-12-19] MEDS: Clopidogrel Bisulfate 75 MG TAB PO SCH (08:22)
[2020-12-19] MEDS: Senokot S 8.6-50 MG TAB PO SCH ×2 (08:22→21:54)
[2020-12-19] MEDS: Polyethylene Glycol 3350 17 GM Packet PO SCH (08:23)
[2020-12-19] MEDS ORDERED: guaiFENesin ER 600 MG TAB PO SCH (12:15)
[2020-12-19] MEDS: Sodium Chloride 0.9% 1,000 ML IV SCH (12:41)
[2020-12-19] MEDS: Atorvastatin Calcium 40 MG TAB PO SCH (21:54)
[2020-12-19] MEDS: guaiFENesin ER 600 MG TAB PO SCH (21:55)
[2020-12-20] MEDS: Sodium Chloride 0.9% 1,000 ML IV SCH ×2 (04:00→07:51)
[2020-12-20 05:29] LABS: #Basophils 0.1 thou/uL (0.0-0.2); #Eosinphils 0.2 thou/uL (0.0-0.7); #Lymphocytes 1.4 thou/uL (1.20-3.40); #Monocytes 0.6 thou/uL (0.11-0.59); #Neutrophils 7.1 thou/uL (1.40-6.50); %Basophils 0.9 % (0.0-1.0); %Eosinophils 2.2 % (0.0-10.0); %Lymphocytes 14.5 % (21.0-51.0); %Monocytes 6.7 % (0.0-10.0); %Neutrophils 75.8 % (42.0-75.0); Hemoglobin 11.6 g/dL (12.0-16.0); Mean Corpuscular HGB CONC 32.4 g/dL (32.0-36.0); Mean Corpuscular Volume 92.4 fL (78.0-98.0); Mean Platelet Volume 9.8 fL (7.4-10.4); Platelet Count 184 thou/uL (130-400); Red Blood Cell (RBC) Count 3.86 mill/uL (4.20-5.40); White Blood Cell (WBC) Count 9.3 thou/uL (4.8-10.8)
[2020-12-20 05:53] LABS: Anion Gap 15 mmol/L (10-20); BUN (Urea Nitrogen) 48 mg/dL (9.8-20.1); Calc. Creatinine Clearance 21 mL/min (70-130); Calcium 7.7 mg/dL (7.8-10.44); Carbon Dioxide 20 mmol/L (23-31); Chloride 107 mmol/L (98-107); Glucose 159 mg/dL (80-115); Potassium 4.9 mmol/L (3.5-5.1); Sodium 137 mmol/L (136-145)
[2020-12-20] MEDS: HumaLOG 300 UNITS/3 ML VIAL SC PRN (06:39)
[2020-12-20] MEDS: hydrALAZINE 20 MG/ML VIAL SLOW IVP PRN (06:40)
[2020-12-20] MEDS: Heparin 5,000 UNITS/ML VIAL SC SCH ×3 (07:46→21:19)
[2020-12-20] MEDS: Polyethylene Glycol 3350 17 GM Packet PO SCH (07:47)
[2020-12-20] MEDS: Aspirin Chewable 81 MG TAB PO SCH (07:48)
[2020-12-20] MEDS: Gabapentin 300 MG CAP PO SCH (07:48)
[2020-12-20] MEDS: buPROPion HCl 100 MG TAB PO SCH (07:48)
[2020-12-20] MEDS: Senokot S 8.6-50 MG TAB PO SCH ×2 (07:48→21:20)
[2020-12-20] MEDS: cloNIDine 0.1 MG TAB PO SCH ×2 (07:49→21:20)
[2020-12-20] MEDS: guaiFENesin ER 600 MG TAB PO SCH ×2 (07:49→21:20)
[2020-12-20] MEDS: Amlodipine 5 MG TAB PO SCH (07:49)
[2020-12-20] MEDS: hydrALAZINE 25 MG TAB PO SCH ×3 (07:49→21:19)
[2020-12-20] MEDS: Cholecalciferol 1,000 UNITS (25 MCG) TAB PO SCH (07:50)
[2020-12-20] MEDS: Carvedilol 25 MG TAB PO SCH ×2 (07:50→21:20)
[2020-12-20] MEDS: Clopidogrel Bisulfate 75 MG TAB PO SCH (07:50)
[2020-12-20] MEDS: Fluticasone Propionate Nasal Spray 16 gm Bottle NASAL SCH (09:10)
[2020-12-20] MEDS: Atorvastatin Calcium 40 MG TAB PO SCH (21:20)
[2020-12-20] MEDS: Melatonin 3 MG TAB PO PRN (21:40)
[2020-12-20] MEDS: LIDOCAINE Patch Removal TOP SCH (22:24)
[2020-12-20] MEDS ORDERED: traZODone HCl 50 MG TAB PO SCH (22:30)
[2020-12-21 05:17] LABS: #Basophils 0.1 thou/uL (0.0-0.2); #Eosinphils 0.2 thou/uL (0.0-0.7); #Lymphocytes 1.6 thou/uL (1.20-3.40); #Monocytes 0.6 thou/uL (0.11-0.59); %Basophils 1.4 % (0.0-1.0); %Eosinophils 2.7 % (0.0-10.0); %Monocytes 8.3 % (0.0-10.0); %Neutrophils 66.6 % (42.0-75.0); Hemoglobin 10.9 g/dL (12.0-16.0); Mean Corpuscular HGB CONC 31.8 g/dL (32.0-36.0); Mean Corpuscular Hemoglobin 29.6 pg (27.0-31.0); Mean Platelet Volume 9.8 fL (7.4-10.4); Platelet Count 190 thou/uL (130-400); RBC Distribution Width 12.1 % (11.5-14.5); Red Blood Cell (RBC) Count 3.68 mill/uL (4.20-5.40); White Blood Cell (WBC) Count 7.5 thou/uL (4.8-10.8)
[2020-12-21 05:37] LABS: Anion Gap 16 mmol/L (10-20); BUN (Urea Nitrogen) 48 mg/dL (9.8-20.1); Calc. Creatinine Clearance 22 mL/min (70-130); Calcium 7.9 mg/dL (7.8-10.44); Carbon Dioxide 18 mmol/L (23-31); Chloride 110 mmol/L (98-107); Glucose 128 mg/dL (80-115); Potassium 4.7 mmol/L (3.5-5.1); Sodium 139 mmol/L (136-145)
[2020-12-21] MEDS: hydrALAZINE 25 MG TAB PO SCH ×2 (08:11→15:42)
[2020-12-21] MEDS: buPROPion HCl 100 MG TAB PO SCH (08:11)
[2020-12-21] MEDS: Gabapentin 300 MG CAP PO SCH (08:12)
[2020-12-21] MEDS: Cholecalciferol 1,000 UNITS (25 MCG) TAB PO SCH (08:13)
[2020-12-21] MEDS: Clopidogrel Bisulfate 75 MG TAB PO SCH (08:13)
[2020-12-21] MEDS: guaiFENesin ER 600 MG TAB PO SCH (08:13)
[2020-12-21] MEDS: Senokot S 8.6-50 MG TAB PO SCH (08:13)
[2020-12-21] MEDS: cloNIDine 0.1 MG TAB PO SCH (08:13)
[2020-12-21] MEDS: Amlodipine 5 MG TAB PO SCH (08:13)
[2020-12-21] MEDS: Carvedilol 25 MG TAB PO SCH (08:13)
[2020-12-21] MEDS: Fluticasone Propionate Nasal Spray 16 gm Bottle NASAL SCH (08:14)
[2020-12-21] MEDS: Aspirin Chewable 81 MG TAB PO SCH (08:14)
[2020-12-21] MEDS: Heparin 5,000 UNITS/ML VIAL SC SCH ×2 (08:14→15:41)
[2020-12-21] MEDS: Polyethylene Glycol 3350 17 GM Packet PO SCH (08:14)
[2020-12-21] MEDS ORDERED: Polyethylene Glycol 3350 17 GM Packet PO SCH (09:00)
[2020-12-21] MEDS: HumaLOG 300 UNITS/3 ML VIAL SC PRN (10:46)
[2020-12-21] MEDS ORDERED: Lidocaine 5% Patch TD PRN (12:24)
[2020-12-21 15:54] VITALS: BP 152/90; TEMP 99
[2020-12-21] MEDS ORDERED: Transdermal Patch Removal TOP SCH (21:00)
[2020-12-22 18:09] LABS: Albumin-Ur 46.9 % (.); Alpha 1 - Ur 9.6 % (.); Beta-Ur 16.2 % (.); Gamma-Ur 15.4 % (.); M-Spike,% Not Observed % (Not Observed); Protein, Urine 929.8 mg/dL (Not Estab.)
[2020-12-25 09:40] LABS: QuantiFERON-TB Gold Plus Negative (Negative)
== END 2020-12-21 19:37 | disposition home or self-care (01) | DRG 291 ==
LOC: ERS 10:56 → 2NO 13:11 → 2SW 12-15 09:32
PROVIDERS: ADMIT Student in an Organized Health Care Education/Training Program; ATTEND Family Medicine
PROC: 8E0ZXY6 Isolation (ICD-10-PCS; principal; 2020-12-14)
DX: I13.0 Hypertensive heart and chronic kidney disease with heart failure and stage 1 through stage 4 chronic kidney disease, or unspecified chronic kidney disease (principal); U07.1 COVID-19; I50.33 Acute on chronic diastolic (congestive) heart failure; N17.9 Acute kidney failure, unspecified; N18.4 Chronic kidney disease, stage 4 (severe); I16.1 Hypertensive emergency; I24.8 Other forms of acute ischemic heart disease; R77.8 Other specified abnormalities of plasma proteins; E87.6 Hypokalemia; K59.00 Constipation, unspecified; I25.10 Atherosclerotic heart disease of native coronary artery without angina pectoris; E11.22 Type 2 diabetes mellitus with diabetic chronic kidney disease; E78.5 Hyperlipidemia, unspecified; F41.9 Anxiety disorder, unspecified; F32.9 Major depressive disorder, single episode, unspecified; F12.10 Cannabis abuse, uncomplicated; R01.1 Cardiac murmur, unspecified; E11.51 Type 2 diabetes mellitus with diabetic peripheral angiopathy without gangrene; N39.41 Urge incontinence; E87.5 Hyperkalemia; Z95.1 Presence of aortocoronary bypass graft; Z95.5 Presence of coronary angioplasty implant and graft; Z95.810 Presence of automatic (implantable) cardiac defibrillator; I25.2 Old myocardial infarction; Z89.512 Acquired absence of left leg below knee; Z87.891 Personal history of nicotine dependence; Z79.899 Other long term (current) drug therapy; Z79.02 Long term (current) use of antithrombotics/antiplatelets; Z79.82 Long term (current) use of aspirin; Z79.84 Long term (current) use of oral hypoglycemic drugs; Z86.73 Personal history of transient ischemic attack (TIA), and cerebral infarction without residual deficits
CPT/HCPCS: 36415; 36416; 71045; 76770; 80048; 80053; 81001; 82553; 82728; 83036; 83520; 83615; 83880; 84145; 84165; 84166; 84484; 85025; 85379; 86038; 86140; 86225; 86256; 86480; 87635; 93005; 93975; 96365; 96375; J0360; J1644; J1650; J1815; J1940; J2405; P9047; U0003; U0005

== ENCOUNTER 2021-01-21 11:26 | Outpatient (CLI) | payer MEDICARE | END 2021-01-21 11:27 | disposition home or self-care (01) | LOC: BICRAD 11:26 | PROVIDERS: ATTEND Internal Medicine Nephrology | DX: N18.5 Chronic kidney disease, stage 5 (principal); R09.89 Other specified symptoms and signs involving the circulatory and respiratory systems | CPT/HCPCS: 36415; 71046; 80048; 85025; 86704; 86706; 86803; 87340 ==

== ENCOUNTER 2021-02-09 09:41 | Outpatient (CLI) | payer MEDICARE | END 2021-02-09 09:42 | disposition home or self-care (01) | LOC: ULT 09:41 | PROVIDERS: ATTEND Surgery | DX: N19 Unspecified kidney failure (principal) | CPT/HCPCS: 93970 ==

== ENCOUNTER 2021-02-10 07:59 | Day surgery (SDC) | payer MEDICARE ==
[2021-02-09 09:59] VITALS: BMI 32.5
[2021-02-10] MEDS ORDERED: Bupivacaine 0.25% HCL 30 ML VIAL ONE (08:13)
[2021-02-10] MEDS ORDERED: Heparin 10,000 UNITS/ 10 ML VIAL ONE ×2 (08:13→09:16)
[2021-02-10] MEDS ORDERED: Protamine Sulfate 50 MG/5 ML VIAL ONE (08:13)
[2021-02-10] MEDS ORDERED: Lidocaine 1% w/Epinephrine 1:100K 20 ML VIAL ONE (08:13)
[2021-02-10] MEDS ORDERED: Heparin 5,000 UNITS/ML VIAL ONE (08:13)
[2021-02-10] MEDS ORDERED: Fentanyl 100 MCG/2 ML VIAL ONE ×2 (09:07→09:16)
[2021-02-10] MEDS ORDERED: SUGAMMADEX SODIUM 500 MG/5 ML VIAL ONE (09:16)
[2021-02-10] MEDS ORDERED: PHENYLEPHRINE-NS 100 MCG/ML 10 ML SYRINGE ONE (09:34)
[2021-02-10 09:42] LABS: #Eosinphils 0.3 thou/uL (0.0-0.7); #Monocytes 0.5 thou/uL (0.11-0.59); #Neutrophils 6.5 thou/uL (1.40-6.50); %Basophils 0.6 % (0.0-1.0); %Eosinophils 3.2 % (0.0-10.0); %Lymphocytes 12.2 % (21.0-51.0); %Monocytes 5.5 % (0.0-10.0); %Neutrophils 78.5 % (42.0-75.0); Hemoglobin 9.6 g/dL (12.0-16.0); Mean Corpuscular HGB CONC 30.7 g/dL (32.0-36.0); Mean Corpuscular Hemoglobin 28.5 pg (27.0-31.0); Mean Corpuscular Volume 92.7 fL (78.0-98.0); Mean Platelet Volume 9.7 fL (7.4-10.4); Platelet Count 231 thou/uL (130-400); RBC Distribution Width 12.4 % (11.5-14.5); Red Blood Cell (RBC) Count 3.38 mill/uL (4.20-5.40); White Blood Cell (WBC) Count 8.3 thou/uL (4.8-10.8)
[2021-02-10 10:02] LABS: Anion Gap 13 mmol/L (10-20); BUN (Urea Nitrogen) 45 mg/dL (9.8-20.1); Calc. Creatinine Clearance 22 mL/min (70-130); Calcium 7.8 mg/dL (7.8-10.44); Carbon Dioxide 22 mmol/L (23-31); Chloride 107 mmol/L (98-107); Glucose 173 mg/dL (80-115); Potassium 5.1 mmol/L (3.5-5.1); Sodium 137 mmol/L (136-145)
[2021-02-10] MEDS ORDERED: PROPOFOL 200 MG/20 ML VIAL ONE (10:11)
[2021-02-10] MEDS ORDERED: Rocuronium Bromide 10 MG/ML (10ML VIAL) ONE (10:11)
[2021-02-10] MEDS ORDERED: Ondansetron PF 4 MG/2 ML Vial ONE (10:11)
[2021-02-10] MEDS ORDERED: Lidocaine 1% PF 5 ML VIAL ONE (10:11)
[2021-02-10] MEDS ORDERED: HYDROcodone/Acetaminophen 5/325 mg Tablet ONE (13:33)
== END 2021-02-10 14:20 | disposition home or self-care (01) ==
LOC: SDC 07:59
PROVIDERS: ATTEND Surgery
PROC: 0WHG43Z Insertion of Infusion Device into Peritoneal Cavity, Percutaneous Endoscopic Approach (ICD-10-PCS; principal; 2021-02-10)
PROC: 03170ZD Bypass Right Brachial Artery to Upper Arm Vein, Open Approach (ICD-10-PCS; 2021-02-10)
DX: N19 Unspecified kidney failure (principal); I11.0 Hypertensive heart disease with heart failure; I50.30 Unspecified diastolic (congestive) heart failure; I25.10 Atherosclerotic heart disease of native coronary artery without angina pectoris; E78.00 Pure hypercholesterolemia, unspecified; E78.5 Hyperlipidemia, unspecified; Z79.01 Long term (current) use of anticoagulants; Z79.4 Long term (current) use of insulin; Z79.82 Long term (current) use of aspirin; Z79.899 Other long term (current) drug therapy; Z89.512 Acquired absence of left leg below knee
CPT/HCPCS: 80048; 85025; J0690; J1644; J2405; J2704; J2720; J3010; S0020

== ENCOUNTER 2021-02-11 04:44 | Emergency (ER) | payer MEDICARE ==
[2021-02-11] MEDS ORDERED: Morphine 4 MG/ML VIAL ONE ×2 (05:10→05:49)
[2021-02-11] MEDS ORDERED: Labetalol HCl 100 MG/20 ML VIAL ONE (05:49)
[2021-02-11 06:07] LABS: PTT 35.8 sec (22.9-36.1); Prothrombin Time 13.8 sec (12.0-14.7)
[2021-02-11 06:13] LABS: #Basophils 0.1 thou/uL (0.0-0.2); #Eosinphils 0.3 thou/uL (0.0-0.7); #Lymphocytes 1.7 thou/uL (1.20-3.40); #Monocytes 0.5 thou/uL (0.11-0.59); #Neutrophils 6.3 thou/uL (1.40-6.50); %Basophils 0.7 % (0.0-1.0); %Eosinophils 3.4 % (0.0-10.0); %Monocytes 6.1 % (0.0-10.0); %Neutrophils 70.9 % (42.0-75.0); Hemoglobin 9.8 g/dL (12.0-16.0); Mean Corpuscular HGB CONC 31.3 g/dL (32.0-36.0); Mean Corpuscular Volume 95.9 fL (78.0-98.0); Mean Platelet Volume 9.5 fL (7.4-10.4); Platelet Count 245 thou/uL (130-400); RBC Distribution Width 12.4 % (11.5-14.5); Red Blood Cell (RBC) Count 3.27 mill/uL (4.20-5.40); White Blood Cell (WBC) Count 8.8 thou/uL (4.8-10.8)
[2021-02-11 06:21] LABS: ALT (SGPT) 9 U/L (8-55); AST (SGOT) 13 U/L (5-34); Alkaline Phosphatase 68 U/L (40-110); Anion Gap 15 mmol/L (10-20); BUN (Urea Nitrogen) 44 mg/dL (9.8-20.1); Bilirubin, Total Less than 0.2 mg/dL (0.2-1.2); Calc. Creatinine Clearance 0 mL/min (70-130); Calcium 7.9 mg/dL (7.8-10.44); Carbon Dioxide 22 mmol/L (23-31); Chloride 107 mmol/L (98-107); Globulin 3.2 g/dL (2.4-3.5); Glucose 152 mg/dL (80-115); Potassium 5.3 mmol/L (3.5-5.1); Protein, Total 6.2 g/dL (5.8-8.1); Sodium 139 mmol/L (136-145)
[2021-02-11] MEDS ORDERED: Fentanyl 100 MCG/2 ML VIAL ONE ×2 (07:06→09:54)
== END 2021-02-11 11:27 | disposition home or self-care (01) ==
LOC: ERS 04:44
DX: T82.898A Other specified complication of vascular prosthetic devices, implants and grafts, initial encounter (principal); I25.2 Old myocardial infarction; E78.5 Hyperlipidemia, unspecified; E11.51 Type 2 diabetes mellitus with diabetic peripheral angiopathy without gangrene; E78.00 Pure hypercholesterolemia, unspecified; Z86.73 Personal history of transient ischemic attack (TIA), and cerebral infarction without residual deficits; Z87.891 Personal history of nicotine dependence; I13.0 Hypertensive heart and chronic kidney disease with heart failure and stage 1 through stage 4 chronic kidney disease, or unspecified chronic kidney disease; I50.9 Heart failure, unspecified; N18.4 Chronic kidney disease, stage 4 (severe)
CPT/HCPCS: 80053; 85025; 85610; 85730; 93931; 96374; 96375; 96376; J2270; J3010

== ENCOUNTER 2021-02-12 09:19 | Day surgery (SDC) | payer MEDICARE ==
[2021-02-12 09:52] LABS: #Basophils 0.1 thou/uL (0.0-0.2); #Eosinphils 0.1 thou/uL (0.0-0.7); #Lymphocytes 0.9 thou/uL (1.20-3.40); #Monocytes 0.4 thou/uL (0.11-0.59); #Neutrophils 8.1 thou/uL (1.40-6.50); %Basophils 0.7 % (0.0-1.0); %Eosinophils 1.2 % (0.0-10.0); %Lymphocytes 9.3 % (21.0-51.0); %Monocytes 4.5 % (0.0-10.0); %Neutrophils 84.2 % (42.0-75.0); Hemoglobin 9.8 g/dL (12.0-16.0); Mean Corpuscular HGB CONC 31.8 g/dL (32.0-36.0); Mean Corpuscular Hemoglobin 30.1 pg (27.0-31.0); Mean Corpuscular Volume 94.8 fL (78.0-98.0); Platelet Count 252 thou/uL (130-400); RBC Distribution Width 12.4 % (11.5-14.5); Red Blood Cell (RBC) Count 3.25 mill/uL (4.20-5.40); White Blood Cell (WBC) Count 9.6 thou/uL (4.8-10.8)
[2021-02-12] MEDS ORDERED: Ondansetron PF 4 MG/2 ML Vial ONE ×2 (09:55→18:34)
[2021-02-12] MEDS ORDERED: Morphine 4 MG/ML VIAL ONE (09:55)
[2021-02-12 10:05] LABS: PTT 26.4 sec (22.9-36.1); Prothrombin Time 13.8 sec (12.0-14.7)
[2021-02-12 10:14] LABS: ALT (SGPT) Less than 7 U/L (8-55); AST (SGOT) 13 U/L (5-34); Albumin 3.2 g/dL (3.4-4.8); Alkaline Phosphatase 74 U/L (40-110); Anion Gap 18 mmol/L (10-20); BUN (Urea Nitrogen) 40 mg/dL (9.8-20.1); Bilirubin, Total 0.3 mg/dL (0.2-1.2); Calc. Creatinine Clearance 0 mL/min (70-130); Carbon Dioxide 18 mmol/L (23-31); Chloride 107 mmol/L (98-107); Globulin 3.1 g/dL (2.4-3.5); Glucose 197 mg/dL (80-115); Protein, Total 6.3 g/dL (5.8-8.1); Sodium 138 mmol/L (136-145)
[2021-02-12] MEDS ORDERED: Fentanyl 100 MCG/2 ML VIAL ONE ×4 (10:29→18:11)
[2021-02-12] MEDS ORDERED: Lidocaine 1% w/Epinephrine 1:100K 20 ML VIAL ONE (18:07)
[2021-02-12] MEDS ORDERED: Bupivacaine PF 0.5% 30 ML VIAL ONE (18:07)
[2021-02-12] MEDS ORDERED: Phenylephrine 10 MG/ML VIAL ONE (18:12)
[2021-02-12] MEDS ORDERED: ePHEDrine Sulfate 50 MG/10 ML VIAL ONE (18:34)
[2021-02-12] MEDS ORDERED: PROPOFOL 200 MG/20 ML VIAL ONE (18:34)
[2021-02-12] MEDS ORDERED: PHENYLEPHRINE-NS 100 MCG/ML 10 ML SYRINGE ONE (18:34)
[2021-02-12] MEDS ORDERED: Heparin 5,000 UNITS/ML VIAL ONE (19:29)
[2021-02-12] MEDS ORDERED: Protamine Sulfate 50 MG/5 ML VIAL ONE (19:32)
[2021-02-12] MEDS ORDERED: hydrALAZINE 20 MG/ML VIAL ONE (20:11)
[2021-02-12] MEDS ORDERED: HYDROcodone/Acetaminophen 5/325 mg Tablet ONE (21:03)
== END 2021-02-12 21:50 | disposition home or self-care (01) ==
LOC: ERS 09:19 → SDC 16:25
PROVIDERS: ATTEND Specialist
PROC: 05LD0ZZ Occlusion of Right Cephalic Vein, Open Approach (ICD-10-PCS; principal; 2021-02-12)
DX: I97.638 Postprocedural hematoma of a circulatory system organ or structure following other circulatory system procedure (principal); I13.0 Hypertensive heart and chronic kidney disease with heart failure and stage 1 through stage 4 chronic kidney disease, or unspecified chronic kidney disease; E11.22 Type 2 diabetes mellitus with diabetic chronic kidney disease; N18.4 Chronic kidney disease, stage 4 (severe); I50.30 Unspecified diastolic (congestive) heart failure; I25.2 Old myocardial infarction; I44.2 Atrioventricular block, complete; I25.10 Atherosclerotic heart disease of native coronary artery without angina pectoris; E66.01 Morbid (severe) obesity due to excess calories; Z68.32 Body mass index [BMI] 32.0-32.9, adult; Z87.891 Personal history of nicotine dependence; Z79.02 Long term (current) use of antithrombotics/antiplatelets; Z79.82 Long term (current) use of aspirin; Z79.899 Other long term (current) drug therapy; Z95.5 Presence of coronary angioplasty implant and graft; Z95.810 Presence of automatic (implantable) cardiac defibrillator
CPT/HCPCS: 36415; 36416; 76999; 80053; 85025; 85610; 85730; 86850; 86900; 86901; 93005; 94760; 96374; 96375; 96376; J0360; J1644; J2270; J2370; J2405; J2704; J2720; J3010; S0020

== ENCOUNTER 2021-02-21 22:08 | Inpatient (IN) | payer MEDICARE ==
[2021-02-21] MEDS ORDERED: Nitroglycerin 2% Ointment 1 INCH/1 GM Packet ONE (22:38)
[2021-02-21] MEDS ORDERED: Aspirin Chewable 81 MG TAB ONE (22:38)
[2021-02-21] MEDS ORDERED: methylPREDNISolone Sod Succ/PF 125 MG/2 ML VIAL ONE (22:48)
[2021-02-21 22:50] LABS: #Eosinphils 0.1 thou/uL (0.0-0.7); #Lymphocytes 1.2 thou/uL (1.20-3.40); #Monocytes 0.8 thou/uL (0.11-0.59); #Neutrophils 12.3 thou/uL (1.40-6.50); %Basophils 0.1 % (0.0-1.0); %Lymphocytes 8.5 % (21.0-51.0); %Monocytes 5.2 % (0.0-10.0); %Neutrophils 85.1 % (42.0-75.0); Hemoglobin 6.8 g/dL (12.0-16.0); Mean Corpuscular HGB CONC 32.1 g/dL (32.0-36.0); Mean Corpuscular Hemoglobin 30.1 pg (27.0-31.0); Mean Corpuscular Volume 93.9 fL (78.0-98.0); Mean Platelet Volume 8.7 fL (7.4-10.4); Platelet Count 359 thou/uL (130-400); RBC Distribution Width 13.6 % (11.5-14.5); Red Blood Cell (RBC) Count 2.27 mill/uL (4.20-5.40); White Blood Cell (WBC) Count 14.4 thou/uL (4.8-10.8)
[2021-02-21] MEDS ORDERED: Nitroglycerin 50 MG/250 ML BOT 250 ML ONE (23:06)
[2021-02-21 23:09] LABS: ALT (SGPT) Less than 7 U/L (8-55); AST (SGOT) 13 U/L (5-34); Albumin 3.1 g/dL (3.4-4.8); Alkaline Phosphatase 76 U/L (40-110); Anion Gap 17 mmol/L (10-20); BUN (Urea Nitrogen) 67 mg/dL (9.8-20.1); Bilirubin, Total 0.4 mg/dL (0.2-1.2); Calc. Creatinine Clearance 0 mL/min (70-130); Carbon Dioxide 21 mmol/L (23-31); Chloride 105 mmol/L (98-107); Globulin 3.1 g/dL (2.4-3.5); Glucose 193 mg/dL (80-115); Magnesium 1.8 mg/dL (1.6-2.6); Protein, Total 6.2 g/dL (5.8-8.1); Sodium 138 mmol/L (136-145)
[2021-02-21 23:44] LABS: CKMB 1.4 ng/mL (0-6.6)
[2021-02-21] MEDS ORDERED: Furosemide 100 MG/10 ML VIAL ONE (23:54)
[2021-02-21] MEDS ORDERED: Furosemide 40 MG/4 ML VIAL ONE (23:54)
[2021-02-22] MEDS ORDERED: Ondansetron ODT 4 MG TAB PO PRN (00:34)
[2021-02-22] MEDS ORDERED: Dextrose 5% in Water 1,000 ML IV PRN (00:34)
[2021-02-22] MEDS ORDERED: Acetaminophen 650 MG Suppository PR PRN (00:34)
[2021-02-22] MEDS ORDERED: Ondansetron PF 4 MG/2 ML Vial IVP PRN (00:34)
[2021-02-22] MEDS ORDERED: Dextrose 50% Abboject 50 ML SYRINGE SLOW IVP PRN (00:34)
[2021-02-22 01:00] LABS: SARS-CoV-2 NAA Rapid Test Not Detected (NotDetected)
[2021-02-22] MEDS ORDERED: Nitroglycerin 50 MG/250 ML BOT 250 ML IVPB SCH (02:45)
[2021-02-22 02:55] LABS: #Basophils 0.1 thou/uL (0.0-0.2); #Eosinphils 0.1 thou/uL (0.0-0.7); #Lymphocytes 0.5 thou/uL (1.20-3.40); #Monocytes 0.1 thou/uL (0.11-0.59); %Basophils 0.7 % (0.0-1.0); %Eosinophils 0.5 % (0.0-10.0); %Lymphocytes 3.5 % (21.0-51.0); %Monocytes 0.6 % (0.0-10.0); %Neutrophils 94.8 % (42.0-75.0); Hemoglobin 6.7 g/dL (12.0-16.0); Mean Corpuscular HGB CONC 32.9 g/dL (32.0-36.0); Mean Corpuscular Hemoglobin 30.8 pg (27.0-31.0); Mean Corpuscular Volume 93.5 fL (78.0-98.0); Mean Platelet Volume 8.5 fL (7.4-10.4); Platelet Count 318 thou/uL (130-400); RBC Distribution Width 13.5 % (11.5-14.5); Red Blood Cell (RBC) Count 2.19 mill/uL (4.20-5.40); White Blood Cell (WBC) Count 13.7 thou/uL (4.8-10.8)
[2021-02-22 03:37] LABS: Critical Call Chem Troponin I DECREASING; Troponin I 0.588 ng/mL (< 0.028)
[2021-02-22] MEDS ORDERED: Fentanyl CADD 0 ML ONE (03:42)
[2021-02-22 06:12] LABS: ALT (SGPT) Less than 7 U/L (8-55); AST (SGOT) 11 U/L (5-34); Albumin 2.9 g/dL (3.4-4.8); Alkaline Phosphatase 71 U/L (40-110); Anion Gap 13 mmol/L (10-20); BUN (Urea Nitrogen) 67 mg/dL (9.8-20.1); Bilirubin, Total 0.3 mg/dL (0.2-1.2); Calc. Creatinine Clearance 20 mL/min (70-130); Calcium 7.7 mg/dL (7.8-10.44); Carbon Dioxide 22 mmol/L (23-31); Chloride 105 mmol/L (98-107); Globulin 2.8 g/dL (2.4-3.5); Glucose 294 mg/dL (80-115); Potassium 4.9 mmol/L (3.5-5.1); Protein, Total 5.7 g/dL (5.8-8.1); Sodium 135 mmol/L (136-145)
[2021-02-22 06:24] LABS: Critical Call Chem Troponin I RESULT DECREASING; Troponin I 0.538 ng/mL (< 0.028)
[2021-02-22 06:30] LABS: HBSAg Index 0.18 S/CO (0-0.99); Hep B Surf Ag Non-Reactive S/CO (NonReactive)
[2021-02-22] MEDS: HumaLOG 300 UNITS/3 ML VIAL SC PRN ×4 (06:41→22:15)
[2021-02-22] MEDS ORDERED: Heparin 10,000 UNITS/ 10 ML VIAL SLOW IVP SCH (06:45)
[2021-02-22] MEDS ORDERED: Heparin 25,000 units/D5W 500 ML IVPB SCH (07:00)
[2021-02-22] MEDS ORDERED: Carvedilol 25 MG TAB PO SCH (08:00)
[2021-02-22 08:32] LABS: Hemoglobin 6.4 g/dL (12.0-16.0); Platelet Count 304 thou/uL (130-400)
[2021-02-22] MEDS ORDERED: Gabapentin 300 MG CAP PO SCH (09:00)
[2021-02-22] MEDS ORDERED: cloNIDine 0.1 MG TAB PO SCH (09:00)
[2021-02-22] MEDS ORDERED: Enoxaparin Sodium 80 MG/0.8 ML SYRINGE SC SCH (09:00)
[2021-02-22] MEDS: Cholecalciferol 1,000 UNITS (25 MCG) TAB PO SCH (09:38)
[2021-02-22] MEDS ORDERED: Gabapentin 100 MG CAP PO SCH (10:15)
[2021-02-22] MEDS: Gabapentin 100 MG CAP PO SCH ×3 (10:44→21:25)
[2021-02-22] MEDS ORDERED: methylPREDNISolone Sod Succ 40 MG VIAL IVP SCH (10:45)
[2021-02-22] MEDS ORDERED: Lantus 1000 UNITS/10 ML VIAL SC SCH (10:45)
[2021-02-22] MEDS: buPROPion 75 MG TAB PO SCH (14:13)
[2021-02-22] MEDS: hydrALAZINE 25 MG TAB PO SCH ×2 (17:31→21:24)
[2021-02-22] MEDS: Carvedilol 25 MG TAB PO SCH (17:31)
[2021-02-22] MEDS: EPOETIN ALFA-EPBX (ESRD) 4,000 UNIT/ML VIAL SC SCH (17:38)
[2021-02-22] MEDS: Zolpidem Tartrate 5 MG TAB PO PRN (21:23)
[2021-02-22] MEDS: Atorvastatin Calcium 40 MG TAB PO SCH (21:24)
[2021-02-22] MEDS: cloNIDine 0.1 MG TAB PO SCH (21:24)
[2021-02-22 21:57] LABS: Platelet Count 278 thou/uL (130-400)
[2021-02-23 06:22] LABS: #Basophils 0.1 thou/uL (0.0-0.2); #Eosinphils 0.1 thou/uL (0.0-0.7); #Lymphocytes 1.8 thou/uL (1.20-3.40); #Monocytes 1.2 thou/uL (0.11-0.59); #Neutrophils 14.7 thou/uL (1.40-6.50); %Basophils 0.3 % (0.0-1.0); %Eosinophils 0.4 % (0.0-10.0); %Monocytes 6.5 % (0.0-10.0); %Neutrophils 82.8 % (42.0-75.0); Hemoglobin 7.1 g/dL (12.0-16.0); Mean Corpuscular HGB CONC 32.4 g/dL (32.0-36.0); Mean Corpuscular Hemoglobin 29.7 pg (27.0-31.0); Mean Corpuscular Volume 91.9 fL (78.0-98.0); Mean Platelet Volume 8.5 fL (7.4-10.4); Platelet Count 310 thou/uL (130-400); RBC Distribution Width 14.2 % (11.5-14.5); White Blood Cell (WBC) Count 17.8 thou/uL (4.8-10.8)
[2021-02-23 06:47] LABS: Anion Gap 13 mmol/L (10-20); BUN (Urea Nitrogen) 68 mg/dL (9.8-20.1); Calc. Creatinine Clearance 21 mL/min (70-130); Calcium 7.8 mg/dL (7.8-10.44); Carbon Dioxide 23 mmol/L (23-31); Chloride 105 mmol/L (98-107); Glucose 171 mg/dL (80-115); Potassium 4.5 mmol/L (3.5-5.1); Sodium 136 mmol/L (136-145)
[2021-02-23] MEDS: HumaLOG 300 UNITS/3 ML VIAL SC PRN ×4 (06:48→20:43)
[2021-02-23] MEDS: Carvedilol 25 MG TAB PO SCH ×2 (08:13→18:09)
[2021-02-23] MEDS: Aspirin 325 MG TAB PO SCH (08:14)
[2021-02-23] MEDS: Clopidogrel Bisulfate 75 MG TAB PO SCH (08:14)
[2021-02-23] MEDS: Gabapentin 100 MG CAP PO SCH ×3 (08:14→20:36)
[2021-02-23] MEDS: buPROPion 75 MG TAB PO SCH (08:14)
[2021-02-23] MEDS: Cholecalciferol 1,000 UNITS (25 MCG) TAB PO SCH (08:14)
[2021-02-23] MEDS: cloNIDine 0.1 MG TAB PO SCH ×2 (08:14→20:36)
[2021-02-23] MEDS: hydrALAZINE 25 MG TAB PO SCH ×3 (08:14→20:37)
[2021-02-23] MEDS ORDERED: Furosemide 40 MG/4 ML VIAL SLOW IVP SCH (08:30)
[2021-02-23] MEDS ORDERED: Lantus 1000 UNITS/10 ML VIAL SC SCH ×2 (09:00)
[2021-02-23] MEDS ORDERED: methylPREDNISolone Sod Succ 40 MG VIAL IVP SCH ×2 (09:00)
[2021-02-23] MEDS ORDERED: Amlodipine 5 MG TAB PO SCH (09:00)
[2021-02-23] MEDS: Atorvastatin Calcium 40 MG TAB PO SCH (20:37)
[2021-02-23] MEDS: Zolpidem Tartrate 5 MG TAB PO PRN (20:43)
[2021-02-24] MEDS ORDERED: Furosemide 40 MG/4 ML VIAL SLOW IVP SCH (03:30)
[2021-02-24] MEDS: Benzonatate 100 MG CAP PO PRN ×2 (03:40→08:01)
[2021-02-24] MEDS ORDERED: Lantus 1000 UNITS/10 ML VIAL SC SCH (06:13)
[2021-02-24] MEDS: HumaLOG 300 UNITS/3 ML VIAL SC PRN ×3 (06:24→17:32)
[2021-02-24 07:08] LABS: #Eosinphils 0.1 thou/uL (0.0-0.7); #Lymphocytes 1.8 thou/uL (1.20-3.40); #Monocytes 1.2 thou/uL (0.11-0.59); #Neutrophils 12.5 thou/uL (1.40-6.50); %Basophils 0.2 % (0.0-1.0); %Eosinophils 0.8 % (0.0-10.0); %Lymphocytes 11.3 % (21.0-51.0); %Monocytes 7.8 % (0.0-10.0); %Neutrophils 79.9 % (42.0-75.0); Hemoglobin 9.1 g/dL (12.0-16.0); Mean Corpuscular Volume 91.1 fL (78.0-98.0); Mean Platelet Volume 8.7 fL (7.4-10.4); Platelet Count 287 thou/uL (130-400); RBC Distribution Width 14.8 % (11.5-14.5); Red Blood Cell (RBC) Count 2.92 mill/uL (4.20-5.40); White Blood Cell (WBC) Count 15.7 thou/uL (4.8-10.8)
[2021-02-24 07:27] LABS: ALT (SGPT) 13 U/L (8-55); AST (SGOT) 20 U/L (5-34); Albumin 2.9 g/dL (3.4-4.8); Alkaline Phosphatase 72 U/L (40-110); Anion Gap 14 mmol/L (10-20); BUN (Urea Nitrogen) 79 mg/dL (9.8-20.1); Bilirubin, Total 0.4 mg/dL (0.2-1.2); Calc. Creatinine Clearance 20 mL/min (70-130); Calcium 7.7 mg/dL (7.8-10.44); Carbon Dioxide 23 mmol/L (23-31); Chloride 105 mmol/L (98-107); Globulin 2.7 g/dL (2.4-3.5); Glucose 168 mg/dL (80-115); Potassium 4.2 mmol/L (3.5-5.1); Protein, Total 5.6 g/dL (5.8-8.1); Sodium 138 mmol/L (136-145)
[2021-02-24] MEDS: hydrALAZINE 25 MG TAB PO SCH ×3 (08:00→21:53)
[2021-02-24] MEDS: Gabapentin 100 MG CAP PO SCH ×3 (08:00→21:53)
[2021-02-24] MEDS: predniSONE 20 MG TAB PO SCH (08:01)
[2021-02-24] MEDS: Clopidogrel Bisulfate 75 MG TAB PO SCH (08:01)
[2021-02-24] MEDS: Amlodipine 10 MG TAB PO SCH (08:01)
[2021-02-24] MEDS: cloNIDine 0.1 MG TAB PO SCH ×2 (08:01→22:07)
[2021-02-24] MEDS: Aspirin 325 MG TAB PO SCH (08:01)
[2021-02-24] MEDS: buPROPion 75 MG TAB PO SCH (08:01)
[2021-02-24] MEDS: Carvedilol 25 MG TAB PO SCH ×2 (08:01→16:00)
[2021-02-24] MEDS: Cholecalciferol 1,000 UNITS (25 MCG) TAB PO SCH (08:01)
[2021-02-24] MEDS ORDERED: Magnesium Sulfate 3 GM in Sodium Chloride 0.9% 100 ML IVPB SCH (10:30)
[2021-02-24] MEDS ORDERED: Magnesium Citrate 300 ML BOT PO SCH (20:00)
[2021-02-24] MEDS: Atorvastatin Calcium 40 MG TAB PO SCH (21:53)
[2021-02-24] MEDS: Zolpidem Tartrate 5 MG TAB PO PRN (22:03)
[2021-02-25] MEDS: hydrALAZINE 20 MG/ML VIAL SLOW IVP PRN (00:26)
[2021-02-25] MEDS: HumaLOG 300 UNITS/3 ML VIAL SC PRN ×4 (06:15→20:46)
[2021-02-25] MEDS ORDERED: Furosemide 40 MG/4 ML VIAL SLOW IVP SCH (06:30)
[2021-02-25 06:58] LABS: #Basophils 0.1 thou/uL (0.0-0.2); #Eosinphils 0.1 thou/uL (0.0-0.7); #Lymphocytes 1.5 thou/uL (1.20-3.40); #Neutrophils 10.6 thou/uL (1.40-6.50); %Basophils 0.6 % (0.0-1.0); %Eosinophils 0.7 % (0.0-10.0); %Monocytes 7.6 % (0.0-10.0); %Neutrophils 80.1 % (42.0-75.0); Hemoglobin 9.2 g/dL (12.0-16.0); Mean Corpuscular HGB CONC 33.2 g/dL (32.0-36.0); Mean Corpuscular Hemoglobin 30.5 pg (27.0-31.0); Mean Corpuscular Volume 91.8 fL (78.0-98.0); Mean Platelet Volume 8.7 fL (7.4-10.4); Platelet Count 272 thou/uL (130-400); RBC Distribution Width 14.7 % (11.5-14.5); Red Blood Cell (RBC) Count 3.03 mill/uL (4.20-5.40); White Blood Cell (WBC) Count 13.2 thou/uL (4.8-10.8)
[2021-02-25 07:22] LABS: ALT (SGPT) 16 U/L (8-55); AST (SGOT) 19 U/L (5-34); Albumin 2.9 g/dL (3.4-4.8); Alkaline Phosphatase 68 U/L (40-110); Anion Gap 14 mmol/L (10-20); BUN (Urea Nitrogen) 83 mg/dL (9.8-20.1); Bilirubin, Total 0.3 mg/dL (0.2-1.2); Calc. Creatinine Clearance 19 mL/min (70-130); Calcium 7.7 mg/dL (7.8-10.44); Carbon Dioxide 26 mmol/L (23-31); Chloride 104 mmol/L (98-107); Globulin 2.8 g/dL (2.4-3.5); Glucose 181 mg/dL (80-115); Potassium 4.5 mmol/L (3.5-5.1); Protein, Total 5.7 g/dL (5.8-8.1); Sodium 139 mmol/L (136-145)
[2021-02-25] MEDS: buPROPion 75 MG TAB PO SCH (08:33)
[2021-02-25] MEDS: Clopidogrel Bisulfate 75 MG TAB PO SCH (08:34)
[2021-02-25] MEDS: cloNIDine 0.1 MG TAB PO SCH ×2 (08:34→20:35)
[2021-02-25] MEDS: Amlodipine 10 MG TAB PO SCH (08:34)
[2021-02-25] MEDS: hydrALAZINE 25 MG TAB PO SCH ×3 (08:34→20:35)
[2021-02-25] MEDS: Aspirin 325 MG TAB PO SCH (08:35)
[2021-02-25] MEDS: Gabapentin 100 MG CAP PO SCH ×3 (08:35→20:36)
[2021-02-25] MEDS: Carvedilol 25 MG TAB PO SCH ×2 (08:35→17:50)
[2021-02-25] MEDS: predniSONE 20 MG TAB PO SCH (08:35)
[2021-02-25] MEDS: Cholecalciferol 1,000 UNITS (25 MCG) TAB PO SCH (08:35)
[2021-02-25] MEDS: Lantus 1000 UNITS/10 ML VIAL SC SCH (08:40)
[2021-02-25] MEDS ORDERED: NIFEdipine XL 30 MG TAB PO SCH (11:00)
[2021-02-25] MEDS: methylPREDNISolone Sod Succ 40 MG VIAL IVP SCH ×2 (11:33→17:50)
[2021-02-25] MEDS ORDERED: methylPREDNISolone Sod Succ/PF 125 MG/2 ML VIAL IVP SCH (12:00)
[2021-02-25] MEDS: Furosemide 80 MG TAB PO SCH (14:52)
[2021-02-25] MEDS ORDERED: Guaifenesin DM 100-10/5 ML UDCUP PO PRN (16:03)
[2021-02-25] MEDS: Triple Antibiotic Ointment 30 GM TUBE TOP SCH (20:35)
[2021-02-25] MEDS: Atorvastatin Calcium 40 MG TAB PO SCH (20:35)
[2021-02-25] MEDS: Zolpidem Tartrate 5 MG TAB PO PRN (20:37)
[2021-02-26] MEDS: Benzonatate 100 MG CAP PO SCH ×4 (01:11→21:01)
[2021-02-26] MEDS: methylPREDNISolone Sod Succ 40 MG VIAL IVP SCH ×5 (01:12→23:39)
[2021-02-26 04:46] LABS: #Lymphocytes 0.5 thou/uL (1.20-3.40); #Monocytes 0.2 thou/uL (0.11-0.59); #Neutrophils 12.8 thou/uL (1.40-6.50); %Eosinophils 0.3 % (0.0-10.0); %Lymphocytes 3.6 % (21.0-51.0); %Monocytes 1.6 % (0.0-10.0); %Neutrophils 94.6 % (42.0-75.0); Mean Corpuscular HGB CONC 33.4 g/dL (32.0-36.0); Mean Corpuscular Volume 92.9 fL (78.0-98.0); Mean Platelet Volume 8.8 fL (7.4-10.4); Platelet Count 279 thou/uL (130-400); RBC Distribution Width 14.5 % (11.5-14.5); Red Blood Cell (RBC) Count 2.92 mill/uL (4.20-5.40); White Blood Cell (WBC) Count 13.5 thou/uL (4.8-10.8)
[2021-02-26 05:09] LABS: ALT (SGPT) 15 U/L (8-55); AST (SGOT) 14 U/L (5-34); Albumin 2.8 g/dL (3.4-4.8); Alkaline Phosphatase 64 U/L (40-110); Anion Gap 13 mmol/L (10-20); BUN (Urea Nitrogen) 88 mg/dL (9.8-20.1); Bilirubin, Total 0.3 mg/dL (0.2-1.2); Calc. Creatinine Clearance 18 mL/min (70-130); Carbon Dioxide 25 mmol/L (23-31); Chloride 100 mmol/L (98-107); Globulin 2.7 g/dL (2.4-3.5); Glucose 278 mg/dL (80-115); Potassium 4.7 mmol/L (3.5-5.1); Protein, Total 5.5 g/dL (5.8-8.1); Sodium 133 mmol/L (136-145)
[2021-02-26] MEDS: HumaLOG 300 UNITS/3 ML VIAL SC PRN ×4 (06:03→20:47)
[2021-02-26] MEDS: buPROPion 75 MG TAB PO SCH (07:59)
[2021-02-26] MEDS: Carvedilol 25 MG TAB PO SCH ×2 (07:59→16:58)
[2021-02-26] MEDS: Aspirin 325 MG TAB PO SCH (07:59)
[2021-02-26] MEDS: Gabapentin 100 MG CAP PO SCH ×3 (08:00→20:48)
[2021-02-26] MEDS: Clopidogrel Bisulfate 75 MG TAB PO SCH (08:00)
[2021-02-26] MEDS: Cholecalciferol 1,000 UNITS (25 MCG) TAB PO SCH (08:00)
[2021-02-26] MEDS: Furosemide 80 MG TAB PO SCH ×2 (08:00→14:44)
[2021-02-26] MEDS: cloNIDine 0.1 MG TAB PO SCH (08:00)
[2021-02-26] MEDS: hydrALAZINE 25 MG TAB PO SCH ×3 (08:01→20:47)
[2021-02-26] MEDS: NIFEdipine XL 60 MG TAB PO SCH (08:01)
[2021-02-26] MEDS: Lantus 1000 UNITS/10 ML VIAL SC SCH (08:03)
[2021-02-26] MEDS: guaiFENesin ER 600 MG TAB PO SCH ×2 (09:06→20:48)
[2021-02-26] MEDS: cloNIDine 0.2 MG TAB PO SCH ×2 (10:07→20:48)
[2021-02-26] MEDS ORDERED: Furosemide 40 MG TAB PO SCH (12:00)
[2021-02-26] MEDS: hydrALAZINE 20 MG/ML VIAL SLOW IVP PRN (15:44)
[2021-02-26] MEDS: Triple Antibiotic Ointment 30 GM TUBE TOP SCH (16:57)
[2021-02-26 18:04] LABS: Hemoglobin 10.2 g/dL (12.0-16.0)
[2021-02-26] MEDS: Zolpidem Tartrate 5 MG TAB PO PRN (20:48)
[2021-02-26] MEDS: Atorvastatin Calcium 40 MG TAB PO SCH (20:48)
[2021-02-26] MEDS: Acetaminophen 325 MG TAB PO PRN (22:52)
[2021-02-27 05:03] LABS: #Lymphocytes 0.5 thou/uL (1.20-3.40); #Monocytes 0.4 thou/uL (0.11-0.59); #Neutrophils 17.2 thou/uL (1.40-6.50); %Eosinophils 0.1 % (0.0-10.0); %Lymphocytes 2.5 % (21.0-51.0); %Monocytes 2.4 % (0.0-10.0); Hemoglobin 9.8 g/dL (12.0-16.0); Mean Corpuscular HGB CONC 31.4 g/dL (32.0-36.0); Mean Corpuscular Volume 92.2 fL (78.0-98.0); Mean Platelet Volume 8.9 fL (7.4-10.4); Platelet Count 302 thou/uL (130-400); RBC Distribution Width 14.8 % (11.5-14.5); Red Blood Cell (RBC) Count 3.39 mill/uL (4.20-5.40); White Blood Cell (WBC) Count 18.1 thou/uL (4.8-10.8)
[2021-02-27 05:27] LABS: ALT (SGPT) 21 U/L (8-55); AST (SGOT) 21 U/L (5-34); Albumin 2.9 g/dL (3.4-4.8); Alkaline Phosphatase 67 U/L (40-110); Anion Gap 14 mmol/L (10-20); BUN (Urea Nitrogen) 97 mg/dL (9.8-20.1); Bilirubin, Total 0.2 mg/dL (0.2-1.2); Calc. Creatinine Clearance 20 mL/min (70-130); Carbon Dioxide 28 mmol/L (23-31); Chloride 98 mmol/L (98-107); Globulin 2.6 g/dL (2.4-3.5); Glucose 331 mg/dL (80-115); Potassium 4.4 mmol/L (3.5-5.1); Protein, Total 5.5 g/dL (5.8-8.1); Sodium 136 mmol/L (136-145)
[2021-02-27] MEDS: HumaLOG 300 UNITS/3 ML VIAL SC PRN ×4 (06:03→21:57)
[2021-02-27] MEDS: methylPREDNISolone Sod Succ 40 MG VIAL IVP SCH ×3 (06:05→18:04)
[2021-02-27] MEDS: Benzonatate 100 MG CAP PO SCH ×3 (07:30→21:31)
[2021-02-27] MEDS: Aspirin 325 MG TAB PO SCH (08:25)
[2021-02-27] MEDS: hydrALAZINE 25 MG TAB PO SCH ×3 (08:25→20:29)
[2021-02-27] MEDS: cloNIDine 0.2 MG TAB PO SCH ×2 (08:26→20:29)
[2021-02-27] MEDS: buPROPion 75 MG TAB PO SCH (08:26)
[2021-02-27] MEDS: Cholecalciferol 1,000 UNITS (25 MCG) TAB PO SCH (08:26)
[2021-02-27] MEDS: Furosemide 80 MG TAB PO SCH ×2 (08:26→14:41)
[2021-02-27] MEDS: NIFEdipine XL 60 MG TAB PO SCH (08:26)
[2021-02-27] MEDS: Gabapentin 100 MG CAP PO SCH ×3 (08:27→20:28)
[2021-02-27] MEDS: Clopidogrel Bisulfate 75 MG TAB PO SCH (08:27)
[2021-02-27] MEDS: guaiFENesin ER 600 MG TAB PO SCH ×2 (08:27→20:29)
[2021-02-27] MEDS: Carvedilol 25 MG TAB PO SCH ×2 (08:27→18:04)
[2021-02-27] MEDS ORDERED: Lantus 1000 UNITS/10 ML VIAL SC SCH (09:00)
[2021-02-27] MEDS ORDERED: methylPREDNISolone Sod Succ 40 MG VIAL IVP SCH (14:00)
[2021-02-27] MEDS: Ferrous Sulfate 325 MG TAB PO SCH (18:04)
[2021-02-27] MEDS: Atorvastatin Calcium 40 MG TAB PO SCH (20:28)
[2021-02-27] MEDS: Triple Antibiotic Ointment 30 GM TUBE TOP SCH (21:24)
[2021-02-27] MEDS: Zolpidem Tartrate 5 MG TAB PO PRN (21:31)
[2021-02-28] MEDS: methylPREDNISolone Sod Succ 40 MG VIAL IVP SCH ×5 (00:21→23:06)
[2021-02-28 05:10] LABS: #Lymphocytes 0.6 thou/uL (1.20-3.40); #Monocytes 0.6 thou/uL (0.11-0.59); #Neutrophils 16.5 thou/uL (1.40-6.50); %Eosinophils 0.1 % (0.0-10.0); %Lymphocytes 3.1 % (21.0-51.0); %Monocytes 3.5 % (0.0-10.0); %Neutrophils 93.3 % (42.0-75.0); Hemoglobin 10.1 g/dL (12.0-16.0); Mean Corpuscular HGB CONC 31.7 g/dL (32.0-36.0); Mean Corpuscular Hemoglobin 29.7 pg (27.0-31.0); Mean Corpuscular Volume 93.8 fL (78.0-98.0); Mean Platelet Volume 9.1 fL (7.4-10.4); Platelet Count 297 thou/uL (130-400); RBC Distribution Width 14.6 % (11.5-14.5); Red Blood Cell (RBC) Count 3.41 mill/uL (4.20-5.40); White Blood Cell (WBC) Count 17.7 thou/uL (4.8-10.8)
[2021-02-28 05:31] LABS: ALT (SGPT) 21 U/L (8-55); AST (SGOT) 18 U/L (5-34); Albumin 2.8 g/dL (3.4-4.8); Alkaline Phosphatase 58 U/L (40-110); Anion Gap 14 mmol/L (10-20); BUN (Urea Nitrogen) 105 mg/dL (9.8-20.1); Bilirubin, Total 0.3 mg/dL (0.2-1.2); Calc. Creatinine Clearance 19 mL/min (70-130); Calcium 7.8 mg/dL (7.8-10.44); Carbon Dioxide 29 mmol/L (23-31); Chloride 98 mmol/L (98-107); Globulin 2.4 g/dL (2.4-3.5); Glucose 248 mg/dL (80-115); Potassium 4.2 mmol/L (3.5-5.1); Protein, Total 5.2 g/dL (5.8-8.1); Sodium 137 mmol/L (136-145)
[2021-02-28] MEDS: HumaLOG 300 UNITS/3 ML VIAL SC PRN ×4 (05:59→23:01)
[2021-02-28] MEDS: Benzonatate 100 MG CAP PO SCH ×3 (06:01→21:33)
[2021-02-28] MEDS ORDERED: NIFEdipine XL 60 MG TAB PO SCH ×2 (08:14)
[2021-02-28] MEDS ORDERED: Lantus 1000 UNITS/10 ML VIAL SC SCH (09:00)
[2021-02-28] MEDS ORDERED: Polyethylene Glycol 3350 17 GM Packet PO PRN (09:04)
[2021-02-28] MEDS ORDERED: Bisacodyl 5 MG TAB PO PRN (09:04)
[2021-02-28] MEDS ORDERED: Senokot 8.6 MG TAB PO PRN (09:04)
[2021-02-28] MEDS: Gabapentin 100 MG CAP PO SCH ×3 (09:27→20:46)
[2021-02-28] MEDS: NIFEdipine XL 90 MG TAB PO SCH (09:27)
[2021-02-28] MEDS: Carvedilol 25 MG TAB PO SCH ×2 (09:27→16:46)
[2021-02-28] MEDS: cloNIDine 0.2 MG TAB PO SCH ×2 (09:27→20:46)
[2021-02-28] MEDS: Furosemide 40 MG TAB PO SCH ×2 (09:27→14:35)
[2021-02-28] MEDS: guaiFENesin ER 600 MG TAB PO SCH ×2 (09:27→20:45)
[2021-02-28] MEDS: Clopidogrel Bisulfate 75 MG TAB PO SCH (09:28)
[2021-02-28] MEDS: Aspirin 325 MG TAB PO SCH (09:28)
[2021-02-28] MEDS: buPROPion 75 MG TAB PO SCH (09:28)
[2021-02-28] MEDS: Cholecalciferol 1,000 UNITS (25 MCG) TAB PO SCH (09:28)
[2021-02-28] MEDS: hydrALAZINE 25 MG TAB PO SCH ×3 (09:28→20:46)
[2021-02-28] MEDS: Ferrous Sulfate 325 MG TAB PO SCH ×2 (09:28→16:45)
[2021-02-28] MEDS: Lantus 1000 UNITS/10 ML VIAL SC SCH (09:29)
[2021-02-28] MEDS ORDERED: cloNIDine 0.1 MG TAB PO SCH (12:00)
[2021-02-28] MEDS: Triple Antibiotic Ointment 30 GM TUBE TOP SCH (17:36)
[2021-02-28] MEDS: Atorvastatin Calcium 40 MG TAB PO SCH (20:46)
[2021-02-28] MEDS: Zolpidem Tartrate 5 MG TAB PO PRN (20:47)
[2021-02-28] MEDS ORDERED: Magnesium Citrate 300 ML BOT PO SCH (21:00)
[2021-03-01 04:36] LABS: #Lymphocytes 0.5 thou/uL (1.20-3.40); #Monocytes 0.5 thou/uL (0.11-0.59); #Neutrophils 13.3 thou/uL (1.40-6.50); %Eosinophils 0.2 % (0.0-10.0); %Lymphocytes 3.8 % (21.0-51.0); %Monocytes 3.6 % (0.0-10.0); %Neutrophils 92.4 % (42.0-75.0); Hemoglobin 10.1 g/dL (12.0-16.0); Mean Corpuscular HGB CONC 32.2 g/dL (32.0-36.0); Mean Corpuscular Hemoglobin 29.7 pg (27.0-31.0); Platelet Count 287 thou/uL (130-400); RBC Distribution Width 14.2 % (11.5-14.5); White Blood Cell (WBC) Count 14.4 thou/uL (4.8-10.8)
[2021-03-01 04:55] LABS: ALT (SGPT) 23 U/L (8-55); AST (SGOT) 17 U/L (5-34); Albumin 2.8 g/dL (3.4-4.8); Alkaline Phosphatase 55 U/L (40-110); Anion Gap 14 mmol/L (10-20); BUN (Urea Nitrogen) 110 mg/dL (9.8-20.1); Bilirubin, Total 0.2 mg/dL (0.2-1.2); Calc. Creatinine Clearance 19 mL/min (70-130); Calcium 7.3 mg/dL (7.8-10.44); Carbon Dioxide 27 mmol/L (23-31); Chloride 98 mmol/L (98-107); Globulin 2.3 g/dL (2.4-3.5); Glucose 219 mg/dL (80-115); Potassium 4.4 mmol/L (3.5-5.1); Protein, Total 5.1 g/dL (5.8-8.1); Sodium 135 mmol/L (136-145)
[2021-03-01] MEDS: Benzonatate 100 MG CAP PO SCH ×3 (05:55→21:18)
[2021-03-01] MEDS: methylPREDNISolone Sod Succ 40 MG VIAL IVP SCH (05:55)
[2021-03-01] MEDS: HumaLOG 300 UNITS/3 ML VIAL SC PRN ×2 (06:01→10:57)
[2021-03-01] MEDS: guaiFENesin ER 600 MG TAB PO SCH ×2 (08:36→21:18)
[2021-03-01] MEDS: buPROPion 75 MG TAB PO SCH (08:36)
[2021-03-01] MEDS: NIFEdipine XL 90 MG TAB PO SCH (08:36)
[2021-03-01] MEDS: Clopidogrel Bisulfate 75 MG TAB PO SCH (08:36)
[2021-03-01] MEDS: Aspirin 325 MG TAB PO SCH (08:36)
[2021-03-01] MEDS: Cholecalciferol 1,000 UNITS (25 MCG) TAB PO SCH (08:37)
[2021-03-01] MEDS: cloNIDine 0.2 MG TAB PO SCH ×2 (08:37→21:19)
[2021-03-01] MEDS: Carvedilol 25 MG TAB PO SCH ×2 (08:37→17:23)
[2021-03-01] MEDS: Furosemide 40 MG TAB PO SCH ×2 (08:37→13:01)
[2021-03-01] MEDS: Gabapentin 100 MG CAP PO SCH ×3 (08:37→21:18)
[2021-03-01] MEDS: Ferrous Sulfate 325 MG TAB PO SCH ×2 (08:37→17:23)
[2021-03-01] MEDS: hydrALAZINE 25 MG TAB PO SCH ×3 (08:37→21:18)
[2021-03-01] MEDS: Lantus 1000 UNITS/10 ML VIAL SC SCH (08:39)
[2021-03-01] MEDS ORDERED: Mometasone 200 MCG/Formoterol 5 MCG 120 PUFF INHALER INH SCH (08:45)
[2021-03-01] MEDS: Albumin 25% 25 GM/100 ML BOT IVPB SCH ×3 (09:00→21:19)
[2021-03-01] MEDS ORDERED: Lantus 1000 UNITS/10 ML VIAL SC SCH ×2 (09:48→10:00)
[2021-03-01] MEDS: EPOETIN ALFA-EPBX (ESRD) 4,000 UNIT/ML VIAL SC SCH (13:01)
[2021-03-01] MEDS: Mometasone 200 MCG/Formoterol 5 MCG 120 PUFF INHALER INH SCH (18:58)
[2021-03-01] MEDS: Triple Antibiotic Ointment 30 GM TUBE TOP SCH (20:55)
[2021-03-01] MEDS: Atorvastatin Calcium 40 MG TAB PO SCH (21:18)
[2021-03-01] MEDS: Zolpidem Tartrate 5 MG TAB PO PRN (21:21)
[2021-03-02] MEDS: Albumin 25% 25 GM/100 ML BOT IVPB SCH (04:13)
[2021-03-02] MEDS: Fluticasone Propionate Nasal Spray 16 gm Bottle NASAL PRN ×2 (04:23→20:59)
[2021-03-02 05:05] LABS: #Eosinphils 0.2 thou/uL (0.0-0.7); #Monocytes 0.8 thou/uL (0.11-0.59); #Neutrophils 8.7 thou/uL (1.40-6.50); %Basophils 0.3 % (0.0-1.0); %Eosinophils 1.5 % (0.0-10.0); %Lymphocytes 16.7 % (21.0-51.0); %Monocytes 6.8 % (0.0-10.0); %Neutrophils 74.7 % (42.0-75.0); Hemoglobin 9.6 g/dL (12.0-16.0); Mean Corpuscular HGB CONC 33.4 g/dL (32.0-36.0); Mean Corpuscular Hemoglobin 30.8 pg (27.0-31.0); Mean Corpuscular Volume 92.2 fL (78.0-98.0); Mean Platelet Volume 9.4 fL (7.4-10.4); Platelet Count 252 thou/uL (130-400); RBC Distribution Width 14.2 % (11.5-14.5); White Blood Cell (WBC) Count 11.7 thou/uL (4.8-10.8)
[2021-03-02] MEDS: Benzonatate 100 MG CAP PO SCH ×3 (05:26→20:57)
[2021-03-02 05:30] LABS: ALT (SGPT) 21 U/L (8-55); AST (SGOT) 16 U/L (5-34); Albumin 3.4 g/dL (3.4-4.8); Alkaline Phosphatase 45 U/L (40-110); Anion Gap 15 mmol/L (10-20); BUN (Urea Nitrogen) 114 mg/dL (9.8-20.1); Bilirubin, Total 0.3 mg/dL (0.2-1.2); Calc. Creatinine Clearance 19 mL/min (70-130); Calcium 7.9 mg/dL (7.8-10.44); Carbon Dioxide 30 mmol/L (23-31); Chloride 97 mmol/L (98-107); Globulin 2.1 g/dL (2.4-3.5); Glucose 82 mg/dL (80-115); Potassium 3.7 mmol/L (3.5-5.1); Protein, Total 5.5 g/dL (5.8-8.1); Sodium 138 mmol/L (136-145)
[2021-03-02] MEDS: Mometasone 200 MCG/Formoterol 5 MCG 120 PUFF INHALER INH SCH ×2 (06:47→18:49)
[2021-03-02] MEDS: NIFEdipine XL 90 MG TAB PO SCH (08:51)
[2021-03-02] MEDS: Cholecalciferol 1,000 UNITS (25 MCG) TAB PO SCH (08:51)
[2021-03-02] MEDS: predniSONE 50 MG TAB PO SCH (08:52)
[2021-03-02] MEDS: hydrALAZINE 25 MG TAB PO SCH ×3 (08:52→20:58)
[2021-03-02] MEDS: Ferrous Sulfate 325 MG TAB PO SCH ×2 (08:57→16:35)
[2021-03-02] MEDS: cloNIDine 0.2 MG TAB PO SCH ×2 (08:57→20:57)
[2021-03-02] MEDS: Clopidogrel Bisulfate 75 MG TAB PO SCH (08:58)
[2021-03-02] MEDS: guaiFENesin ER 600 MG TAB PO SCH ×2 (08:58→20:57)
[2021-03-02] MEDS: Gabapentin 100 MG CAP PO SCH ×3 (08:58→20:57)
[2021-03-02] MEDS: Aspirin 325 MG TAB PO SCH (08:58)
[2021-03-02] MEDS: Carvedilol 25 MG TAB PO SCH ×2 (08:59→16:36)
[2021-03-02] MEDS ORDERED: hydrALAZINE 25 MG TAB PO SCH (09:00)
[2021-03-02] MEDS: buPROPion 75 MG TAB PO SCH (09:00)
[2021-03-02] MEDS: Furosemide 40 MG TAB PO SCH ×2 (09:00→12:46)
[2021-03-02] MEDS: Lantus 1000 UNITS/10 ML VIAL SC SCH (09:03)
[2021-03-02] MEDS: Polyethylene Glycol 3350 17 GM Packet PO SCH (09:03)
[2021-03-02] MEDS ORDERED: Triple Antibiotic Ointment 30 GM TUBE TOP PRN (11:18)
[2021-03-02] MEDS: HumaLOG 300 UNITS/3 ML VIAL SC PRN ×2 (16:39→20:58)
[2021-03-02] MEDS: Zolpidem Tartrate 5 MG TAB PO PRN (20:57)
[2021-03-02] MEDS: Atorvastatin Calcium 40 MG TAB PO SCH (20:57)
[2021-03-02] MEDS: Triple Antibiotic Ointment 30 GM TUBE TOP SCH (20:58)
[2021-03-03 04:09] LABS: #Lymphocytes 0.7 thou/uL (1.20-3.40); #Monocytes 0.6 thou/uL (0.11-0.59); #Neutrophils 12.6 thou/uL (1.40-6.50); %Basophils 0.2 % (0.0-1.0); %Eosinophils 0.2 % (0.0-10.0); %Lymphocytes 5.1 % (21.0-51.0); %Monocytes 4.1 % (0.0-10.0); %Neutrophils 90.4 % (42.0-75.0); Hemoglobin 10.1 g/dL (12.0-16.0); Mean Corpuscular HGB CONC 32.3 g/dL (32.0-36.0); Mean Corpuscular Hemoglobin 29.9 pg (27.0-31.0); Mean Corpuscular Volume 92.8 fL (78.0-98.0); Mean Platelet Volume 9.1 fL (7.4-10.4); Platelet Count 240 thou/uL (130-400); RBC Distribution Width 14.1 % (11.5-14.5); Red Blood Cell (RBC) Count 3.38 mill/uL (4.20-5.40); White Blood Cell (WBC) Count 13.9 thou/uL (4.8-10.8)
[2021-03-03 04:26] LABS: ALT (SGPT) 20 U/L (8-55); AST (SGOT) 14 U/L (5-34); Albumin 3.5 g/dL (3.4-4.8); Alkaline Phosphatase 52 U/L (40-110); Anion Gap 15 mmol/L (10-20); BUN (Urea Nitrogen) 116 mg/dL (9.8-20.1); Bilirubin, Total 0.3 mg/dL (0.2-1.2); Calc. Creatinine Clearance 19 mL/min (70-130); Calcium 7.8 mg/dL (7.8-10.44); Carbon Dioxide 29 mmol/L (23-31); Chloride 96 mmol/L (98-107); Globulin 2.1 g/dL (2.4-3.5); Glucose 239 mg/dL (80-115); Protein, Total 5.6 g/dL (5.8-8.1); Sodium 136 mmol/L (136-145)
[2021-03-03] MEDS: Benzonatate 100 MG CAP PO SCH ×3 (05:58→21:18)
[2021-03-03] MEDS: HumaLOG 300 UNITS/3 ML VIAL SC PRN ×3 (05:59→17:49)
[2021-03-03] MEDS: Mometasone 200 MCG/Formoterol 5 MCG 120 PUFF INHALER INH SCH ×2 (06:43→21:19)
[2021-03-03] MEDS: Polyethylene Glycol 3350 17 GM Packet PO SCH (08:17)
[2021-03-03] MEDS: Carvedilol 25 MG TAB PO SCH ×2 (08:17→17:49)
[2021-03-03] MEDS: Gabapentin 100 MG CAP PO SCH ×3 (08:17→21:18)
[2021-03-03] MEDS: NIFEdipine XL 90 MG TAB PO SCH (08:18)
[2021-03-03] MEDS: guaiFENesin ER 600 MG TAB PO SCH ×2 (08:18→21:17)
[2021-03-03] MEDS: Cholecalciferol 1,000 UNITS (25 MCG) TAB PO SCH (08:18)
[2021-03-03] MEDS: Aspirin 325 MG TAB PO SCH (08:18)
[2021-03-03] MEDS: buPROPion 75 MG TAB PO SCH (08:19)
[2021-03-03] MEDS: Clopidogrel Bisulfate 75 MG TAB PO SCH (08:19)
[2021-03-03] MEDS: Furosemide 40 MG TAB PO SCH ×2 (08:19→14:57)
[2021-03-03] MEDS: Ferrous Sulfate 325 MG TAB PO SCH ×2 (08:19→17:49)
[2021-03-03] MEDS: cloNIDine 0.2 MG TAB PO SCH ×2 (08:19→21:17)
[2021-03-03] MEDS: hydrALAZINE 25 MG TAB PO SCH ×3 (08:19→21:17)
[2021-03-03] MEDS ORDERED: NIFEdipine XL 90 MG TAB PO SCH (08:22)
[2021-03-03] MEDS ORDERED: predniSONE 20 MG TAB PO SCH ×2 (08:30→09:30)
[2021-03-03] MEDS: NIFEdipine XL 60 MG TAB PO SCH (09:35)
[2021-03-03] MEDS: Lantus 1000 UNITS/10 ML VIAL SC SCH (09:36)
[2021-03-03] MEDS: predniSONE 50 MG TAB PO SCH (09:39)
[2021-03-03] MEDS ORDERED: Magnesium Citrate 300 ML BOT PO SCH (17:30)
[2021-03-03] MEDS: Triple Antibiotic Ointment 30 GM TUBE TOP SCH (21:18)
[2021-03-03] MEDS: Zolpidem Tartrate 5 MG TAB PO PRN (21:18)
[2021-03-03] MEDS: Atorvastatin Calcium 40 MG TAB PO SCH (21:18)
[2021-03-04 04:51] LABS: #Eosinphils 0.1 thou/uL (0.0-0.7); #Lymphocytes 0.9 thou/uL (1.20-3.40); #Monocytes 0.7 thou/uL (0.11-0.59); #Neutrophils 12.4 thou/uL (1.40-6.50); %Basophils 0.2 % (0.0-1.0); %Eosinophils 0.4 % (0.0-10.0); %Lymphocytes 6.4 % (21.0-51.0); %Monocytes 4.9 % (0.0-10.0); %Neutrophils 88.1 % (42.0-75.0); Hemoglobin 9.8 g/dL (12.0-16.0); Mean Corpuscular HGB CONC 32.6 g/dL (32.0-36.0); Mean Corpuscular Hemoglobin 30.1 pg (27.0-31.0); Mean Corpuscular Volume 92.6 fL (78.0-98.0); Mean Platelet Volume 9.7 fL (7.4-10.4); Platelet Count 216 thou/uL (130-400); Red Blood Cell (RBC) Count 3.26 mill/uL (4.20-5.40); White Blood Cell (WBC) Count 14.1 thou/uL (4.8-10.8)
[2021-03-04 05:13] LABS: ALT (SGPT) 17 U/L (8-55); AST (SGOT) 12 U/L (5-34); Albumin 3.3 g/dL (3.4-4.8); Alkaline Phosphatase 49 U/L (40-110); Anion Gap 18 mmol/L (10-20); BUN (Urea Nitrogen) 111 mg/dL (9.8-20.1); Bilirubin, Total 0.3 mg/dL (0.2-1.2); Calc. Creatinine Clearance 19 mL/min (70-130); Calcium 7.8 mg/dL (7.8-10.44); Carbon Dioxide 28 mmol/L (23-31); Chloride 97 mmol/L (98-107); Globulin 2.1 g/dL (2.4-3.5); Glucose 186 mg/dL (80-115); Potassium 3.9 mmol/L (3.5-5.1); Protein, Total 5.4 g/dL (5.8-8.1); Sodium 139 mmol/L (136-145)
[2021-03-04] MEDS: Benzonatate 100 MG CAP PO SCH ×3 (07:08→20:33)
[2021-03-04] MEDS: Mometasone 200 MCG/Formoterol 5 MCG 120 PUFF INHALER INH SCH ×2 (07:36→19:13)
[2021-03-04] MEDS ORDERED: predniSONE 20 MG TAB PO SCH (08:00)
[2021-03-04] MEDS: Aspirin 325 MG TAB PO SCH (09:06)
[2021-03-04] MEDS: hydrALAZINE 25 MG TAB PO SCH ×3 (09:07→20:33)
[2021-03-04] MEDS: Furosemide 40 MG TAB PO SCH ×2 (09:07→15:08)
[2021-03-04] MEDS: cloNIDine 0.2 MG TAB PO SCH ×2 (09:07→20:33)
[2021-03-04] MEDS: Ferrous Sulfate 325 MG TAB PO SCH ×2 (09:07→17:44)
[2021-03-04] MEDS: guaiFENesin ER 600 MG TAB PO SCH ×2 (09:07→20:33)
[2021-03-04] MEDS: Cholecalciferol 1,000 UNITS (25 MCG) TAB PO SCH (09:08)
[2021-03-04] MEDS: Polyethylene Glycol 3350 17 GM Packet PO SCH ×2 (09:08→09:19)
[2021-03-04] MEDS: Clopidogrel Bisulfate 75 MG TAB PO SCH (09:08)
[2021-03-04] MEDS: NIFEdipine XL 60 MG TAB PO SCH (09:08)
[2021-03-04] MEDS: Carvedilol 25 MG TAB PO SCH ×2 (09:08→17:44)
[2021-03-04] MEDS: buPROPion 75 MG TAB PO SCH (09:08)
[2021-03-04] MEDS: predniSONE 20 MG TAB PO SCH (09:08)
[2021-03-04] MEDS: Lantus 1000 UNITS/10 ML VIAL SC SCH (09:09)
[2021-03-04] MEDS: Gabapentin 100 MG CAP PO SCH ×3 (09:09→20:34)
[2021-03-04] MEDS: HumaLOG 300 UNITS/3 ML VIAL SC PRN (12:26)
[2021-03-04] MEDS: Piperacillin/Tazobactam 2.25 GM in Sodium Chloride 0.9% 100 ML IVPB SCH ×2 (15:07→20:35)
[2021-03-04] MEDS: Zolpidem Tartrate 5 MG TAB PO PRN (20:34)
[2021-03-04] MEDS: Atorvastatin Calcium 40 MG TAB PO SCH (20:34)
[2021-03-04] MEDS: Triple Antibiotic Ointment 30 GM TUBE TOP SCH (20:35)
[2021-03-05 04:56] LABS: Hemoglobin 9.8 g/dL (12.0-16.0); Mean Corpuscular HGB CONC 32.8 g/dL (32.0-36.0); Mean Corpuscular Hemoglobin 30.9 pg (27.0-31.0); Mean Corpuscular Volume 94.2 fL (78.0-98.0); Mean Platelet Volume 10.1 fL (7.4-10.4); Platelet Count 204 thou/uL (130-400); RBC Distribution Width 13.9 % (11.5-14.5); Red Blood Cell (RBC) Count 3.19 mill/uL (4.20-5.40); White Blood Cell (WBC) Count 14.7 thou/uL (4.8-10.8)
[2021-03-05 05:13] LABS: ALT (SGPT) 15 U/L (8-55); AST (SGOT) 11 U/L (5-34); Albumin 3.1 g/dL (3.4-4.8); Alkaline Phosphatase 47 U/L (40-110); Anion Gap 13 mmol/L (10-20); BUN (Urea Nitrogen) 109 mg/dL (9.8-20.1); Bilirubin, Total 0.3 mg/dL (0.2-1.2); Calc. Creatinine Clearance 18 mL/min (70-130); Calcium 7.6 mg/dL (7.8-10.44); Carbon Dioxide 32 mmol/L (23-31); Chloride 98 mmol/L (98-107); Globulin 2.1 g/dL (2.4-3.5); Glucose 218 mg/dL (80-115); Potassium 4.1 mmol/L (3.5-5.1); Protein, Total 5.2 g/dL (5.8-8.1); Sodium 139 mmol/L (136-145)
[2021-03-05] MEDS: Benzonatate 100 MG CAP PO SCH ×3 (05:37→21:50)
[2021-03-05] MEDS: Piperacillin/Tazobactam 2.25 GM in Sodium Chloride 0.9% 100 ML IVPB SCH ×3 (05:38→21:50)
[2021-03-05 05:54] LABS: Band 8 % (5-11); Eosinophils 1 % (0-10); Lymphocytes 9 % (21-51); MDiff Complete? YES; Monocytes 2 % (0-10); Neutrophil 80 % (42-75)
[2021-03-05] MEDS: Mometasone 200 MCG/Formoterol 5 MCG 120 PUFF INHALER INH SCH ×2 (06:58→18:33)
[2021-03-05] MEDS: Aspirin 325 MG TAB PO SCH (08:33)
[2021-03-05] MEDS: Carvedilol 25 MG TAB PO SCH ×2 (08:33→17:17)
[2021-03-05] MEDS: buPROPion 75 MG TAB PO SCH (08:34)
[2021-03-05] MEDS: Gabapentin 100 MG CAP PO SCH ×3 (08:34→21:50)
[2021-03-05] MEDS: cloNIDine 0.2 MG TAB PO SCH ×2 (08:34→21:50)
[2021-03-05] MEDS: hydrALAZINE 25 MG TAB PO SCH ×3 (08:35→21:50)
[2021-03-05] MEDS: NIFEdipine XL 60 MG TAB PO SCH (08:35)
[2021-03-05] MEDS: Clopidogrel Bisulfate 75 MG TAB PO SCH (08:35)
[2021-03-05] MEDS: Cholecalciferol 1,000 UNITS (25 MCG) TAB PO SCH (09:00)
[2021-03-05] MEDS: Lantus 1000 UNITS/10 ML VIAL SC SCH (09:00)
[2021-03-05] MEDS: Ferrous Sulfate 325 MG TAB PO SCH ×2 (09:00→17:18)
[2021-03-05] MEDS: Polyethylene Glycol 3350 17 GM Packet PO SCH (09:00)
[2021-03-05] MEDS: Furosemide 40 MG TAB PO SCH ×2 (09:17→15:17)
[2021-03-05] MEDS ORDERED: Lidocaine 1% w/Epinephrine 1:100K 20 ML VIAL ONE (10:48)
[2021-03-05] MEDS ORDERED: Bupivacaine 0.25% HCL 30 ML VIAL ONE (10:48)
[2021-03-05] MEDS ORDERED: Fentanyl 100 MCG/2 ML VIAL ONE (10:56)
[2021-03-05] MEDS ORDERED: Ondansetron PF 4 MG/2 ML Vial ONE (11:03)
[2021-03-05] MEDS ORDERED: PROPOFOL 200 MG/20 ML VIAL ONE (11:03)
[2021-03-05] MEDS ORDERED: Dexamethasone 20 MG/5 ML VIAL ONE (11:03)
[2021-03-05] MEDS ORDERED: Lidocaine 1% PF 5 ML VIAL ONE (11:03)
[2021-03-05] MEDS ORDERED: Ondansetron HCl/PF 4 MG/2 ML Vial IVP PRN (12:29)
[2021-03-05] MEDS ORDERED: Promethazine HCl 25 MG/ML VIAL IM PRN (12:29)
[2021-03-05] MEDS ORDERED: Promethazine HCl 25 MG/ML VIAL SLOW IVP PRN (12:29)
[2021-03-05] MEDS: guaiFENesin ER 600 MG TAB PO SCH ×2 (15:18→21:50)
[2021-03-05] MEDS: Atorvastatin Calcium 40 MG TAB PO SCH (21:50)
[2021-03-05] MEDS: Zolpidem Tartrate 5 MG TAB PO PRN (21:54)
[2021-03-05] MEDS: Triple Antibiotic Ointment 30 GM TUBE TOP SCH (21:54)
[2021-03-05] MEDS: predniSONE 20 MG TAB PO SCH (22:16)
[2021-03-05 22:19] LABS: Hemoglobin 10.6 g/dL (12.0-16.0)
[2021-03-05] MEDS: HumaLOG 300 UNITS/3 ML VIAL SC PRN (22:32)
[2021-03-06 04:38] LABS: #Eosinphils 0.1 thou/uL (0.0-0.7); #Lymphocytes 1.3 thou/uL (1.20-3.40); #Monocytes 0.8 thou/uL (0.11-0.59); #Neutrophils 13.1 thou/uL (1.40-6.50); %Basophils 0.2 % (0.0-1.0); %Eosinophils 0.4 % (0.0-10.0); %Lymphocytes 8.6 % (21.0-51.0); %Monocytes 5.1 % (0.0-10.0); %Neutrophils 85.8 % (42.0-75.0); Hemoglobin 10.5 g/dL (12.0-16.0); Mean Corpuscular Hemoglobin 30.6 pg (27.0-31.0); Mean Corpuscular Volume 95.6 fL (78.0-98.0); Platelet Count 184 thou/uL (130-400); RBC Distribution Width 13.8 % (11.5-14.5); Red Blood Cell (RBC) Count 3.44 mill/uL (4.20-5.40); White Blood Cell (WBC) Count 15.2 thou/uL (4.8-10.8)
[2021-03-06] MEDS: Piperacillin/Tazobactam 2.25 GM in Sodium Chloride 0.9% 100 ML IVPB SCH ×3 (05:03→21:15)
[2021-03-06] MEDS: Benzonatate 100 MG CAP PO SCH ×3 (05:03→21:13)
[2021-03-06 05:04] LABS: ALT (SGPT) 12 U/L (8-55); AST (SGOT) 9 U/L (5-34); Alkaline Phosphatase 48 U/L (40-110); Anion Gap 12 mmol/L (10-20); BUN (Urea Nitrogen) 102 mg/dL (9.8-20.1); Bilirubin, Total 0.3 mg/dL (0.2-1.2); Calc. Creatinine Clearance 22 mL/min (70-130); Calcium 7.6 mg/dL (7.8-10.44); Carbon Dioxide 30 mmol/L (23-31); Chloride 100 mmol/L (98-107); Globulin 2.2 g/dL (2.4-3.5); Glucose 209 mg/dL (80-115); Potassium 4.2 mmol/L (3.5-5.1); Protein, Total 5.2 g/dL (5.8-8.1); Sodium 138 mmol/L (136-145)
[2021-03-06] MEDS: HumaLOG 300 UNITS/3 ML VIAL SC PRN ×3 (05:53→21:15)
[2021-03-06] MEDS: Mometasone 200 MCG/Formoterol 5 MCG 120 PUFF INHALER INH SCH ×2 (09:38→18:18)
[2021-03-06] MEDS: hydrALAZINE 25 MG TAB PO SCH ×3 (09:56→21:13)
[2021-03-06] MEDS: Aspirin 325 MG TAB PO SCH (09:56)
[2021-03-06] MEDS: Cholecalciferol 1,000 UNITS (25 MCG) TAB PO SCH (09:57)
[2021-03-06] MEDS: Ferrous Sulfate 325 MG TAB PO SCH ×2 (09:57→18:10)
[2021-03-06] MEDS: guaiFENesin ER 600 MG TAB PO SCH ×2 (09:57→21:14)
[2021-03-06] MEDS: Carvedilol 25 MG TAB PO SCH ×2 (09:57→18:10)
[2021-03-06] MEDS: NIFEdipine XL 60 MG TAB PO SCH (09:57)
[2021-03-06] MEDS: cloNIDine 0.2 MG TAB PO SCH ×2 (09:57→21:14)
[2021-03-06] MEDS: buPROPion 75 MG TAB PO SCH (09:58)
[2021-03-06] MEDS: Lantus 1000 UNITS/10 ML VIAL SC SCH (09:58)
[2021-03-06] MEDS: Furosemide 40 MG TAB PO SCH ×2 (09:58→15:09)
[2021-03-06] MEDS: Gabapentin 100 MG CAP PO SCH ×3 (09:58→21:14)
[2021-03-06] MEDS: Clopidogrel Bisulfate 75 MG TAB PO SCH (09:58)
[2021-03-06] MEDS: Polyethylene Glycol 3350 17 GM Packet PO SCH (09:59)
[2021-03-06] MEDS: Acetaminophen 325 MG TAB PO PRN (10:05)
[2021-03-06] MEDS: Zolpidem Tartrate 5 MG TAB PO PRN (21:14)
[2021-03-06] MEDS: Atorvastatin Calcium 40 MG TAB PO SCH (21:14)
[2021-03-06] MEDS: Triple Antibiotic Ointment 30 GM TUBE TOP SCH (22:39)
[2021-03-07 05:08] LABS: #Eosinphils 0.3 thou/uL (0.0-0.7); #Lymphocytes 1.9 thou/uL (1.20-3.40); #Monocytes 0.9 thou/uL (0.11-0.59); #Neutrophils 10.6 thou/uL (1.40-6.50); %Basophils 0.3 % (0.0-1.0); %Monocytes 6.5 % (0.0-10.0); %Neutrophils 77.1 % (42.0-75.0); Hemoglobin 10.4 g/dL (12.0-16.0); Mean Corpuscular HGB CONC 32.6 g/dL (32.0-36.0); Mean Corpuscular Hemoglobin 30.9 pg (27.0-31.0); Mean Corpuscular Volume 94.5 fL (78.0-98.0); Mean Platelet Volume 10.3 fL (7.4-10.4); Platelet Count 168 thou/uL (130-400); Red Blood Cell (RBC) Count 3.37 mill/uL (4.20-5.40); White Blood Cell (WBC) Count 13.8 thou/uL (4.8-10.8)
[2021-03-07] MEDS: Piperacillin/Tazobactam 2.25 GM in Sodium Chloride 0.9% 100 ML IVPB SCH (05:44)
[2021-03-07] MEDS: Benzonatate 100 MG CAP PO SCH ×3 (05:44→21:06)
[2021-03-07 05:45] LABS: ALT (SGPT) 12 U/L (8-55); AST (SGOT) 12 U/L (5-34); Alkaline Phosphatase 49 U/L (40-110); Anion Gap 16 mmol/L (10-20); BUN (Urea Nitrogen) 100 mg/dL (9.8-20.1); Bilirubin, Total 0.3 mg/dL (0.2-1.2); Calc. Creatinine Clearance 22 mL/min (70-130); Calcium 7.5 mg/dL (7.8-10.44); Carbon Dioxide 27 mmol/L (23-31); Chloride 102 mmol/L (98-107); Globulin 2.4 g/dL (2.4-3.5); Glucose 140 mg/dL (80-115); Potassium 4.6 mmol/L (3.5-5.1); Protein, Total 5.4 g/dL (5.8-8.1); Sodium 140 mmol/L (136-145)
[2021-03-07] MEDS: Mometasone 200 MCG/Formoterol 5 MCG 120 PUFF INHALER INH SCH ×2 (07:15→18:24)
[2021-03-07] MEDS: Ferrous Sulfate 325 MG TAB PO SCH ×2 (09:33→17:43)
[2021-03-07] MEDS: NIFEdipine XL 60 MG TAB PO SCH (09:33)
[2021-03-07] MEDS: Aspirin 325 MG TAB PO SCH (09:33)
[2021-03-07] MEDS: cloNIDine 0.2 MG TAB PO SCH ×2 (09:33→21:03)
[2021-03-07] MEDS: Polyethylene Glycol 3350 17 GM Packet PO SCH (09:33)
[2021-03-07] MEDS: Furosemide 40 MG TAB PO SCH ×2 (09:34→15:32)
[2021-03-07] MEDS: Clopidogrel Bisulfate 75 MG TAB PO SCH (09:34)
[2021-03-07] MEDS: hydrALAZINE 25 MG TAB PO SCH ×3 (09:34→21:04)
[2021-03-07] MEDS: Gabapentin 100 MG CAP PO SCH ×3 (09:34→21:03)
[2021-03-07] MEDS: buPROPion 75 MG TAB PO SCH (09:34)
[2021-03-07] MEDS: Lantus 1000 UNITS/10 ML VIAL SC SCH (09:35)
[2021-03-07] MEDS: Cholecalciferol 1,000 UNITS (25 MCG) TAB PO SCH (09:35)
[2021-03-07] MEDS: Heparin 5,000 UNITS/ML VIAL SC SCH ×3 (09:35→21:03)
[2021-03-07] MEDS: Carvedilol 25 MG TAB PO SCH ×2 (09:35→17:43)
[2021-03-07] MEDS: guaiFENesin ER 600 MG TAB PO SCH ×2 (09:35→21:03)
[2021-03-07] MEDS ORDERED: cefTRIAXone\\ROCEPHIN 1 GM in Sodium Chloride 0.9% 100 ML IVPB SCH (14:00)
[2021-03-07] MEDS: Atorvastatin Calcium 40 MG TAB PO SCH (21:03)
[2021-03-07] MEDS: Triple Antibiotic Ointment 30 GM TUBE TOP SCH (21:06)
[2021-03-07] MEDS: Zolpidem Tartrate 5 MG TAB PO PRN (21:07)
[2021-03-08] MEDS: Benzonatate 100 MG CAP PO SCH (05:59)
[2021-03-08] MEDS: Mometasone 200 MCG/Formoterol 5 MCG 120 PUFF INHALER INH SCH ×2 (07:05→18:40)
[2021-03-08] MEDS ORDERED: Milk Of Magnesia 30 ML UDCUP PO PRN (08:17)
[2021-03-08] MEDS ORDERED: Lantus 1000 UNITS/10 ML VIAL SC SCH (09:00)
[2021-03-08] MEDS ORDERED: Fentanyl 100 MCG/2 ML VIAL SLOW IVP PRN (09:33)
[2021-03-08] MEDS: NIFEdipine XL 60 MG TAB PO SCH (09:54)
[2021-03-08] MEDS: Gabapentin 100 MG CAP PO SCH ×3 (09:55→21:28)
[2021-03-08] MEDS: Furosemide 40 MG TAB PO SCH ×2 (09:55→17:43)
[2021-03-08] MEDS: Cholecalciferol 1,000 UNITS (25 MCG) TAB PO SCH (09:55)
[2021-03-08] MEDS: hydrALAZINE 25 MG TAB PO SCH ×3 (09:56→21:28)
[2021-03-08] MEDS: cloNIDine 0.2 MG TAB PO SCH ×2 (09:56→21:27)
[2021-03-08] MEDS: Aspirin 325 MG TAB PO SCH (09:57)
[2021-03-08] MEDS: guaiFENesin ER 600 MG TAB PO SCH ×2 (09:57→21:28)
[2021-03-08] MEDS: Carvedilol 25 MG TAB PO SCH ×2 (09:57→18:25)
[2021-03-08] MEDS: Clopidogrel Bisulfate 75 MG TAB PO SCH (09:57)
[2021-03-08] MEDS: Ferrous Sulfate 325 MG TAB PO SCH ×2 (09:58→18:25)
[2021-03-08] MEDS: Polyethylene Glycol 3350 17 GM Packet PO SCH (09:58)
[2021-03-08] MEDS: buPROPion 75 MG TAB PO SCH (09:58)
[2021-03-08] MEDS: Heparin 5,000 UNITS/ML VIAL SC SCH ×2 (10:09→15:29)
[2021-03-08] MEDS: EPOETIN ALFA-EPBX (ESRD) 4,000 UNIT/ML VIAL SC SCH (12:48)
[2021-03-08] MEDS ORDERED: CEFAZOLIN 2 GM in Premix Bag 1 BAG IVPB SCH (14:15)
[2021-03-08] MEDS ORDERED: Fentanyl 100 MCG/2 ML VIAL ONE ×2 (14:19→16:30)
[2021-03-08] MEDS ORDERED: Heparin 5,000 UNITS/ML VIAL ONE (14:22)
[2021-03-08] MEDS ORDERED: Bupivacaine PF 0.5% 30 ML VIAL ONE (14:22)
[2021-03-08] MEDS ORDERED: Protamine Sulfate 50 MG/5 ML VIAL ONE (14:22)
[2021-03-08] MEDS ORDERED: Lidocaine 1% w/Epinephrine 1:100K 20 ML VIAL ONE (14:22)
[2021-03-08] MEDS ORDERED: Norepinephrine 4 MG/4 ML VIAL ONE ×2 (14:30→14:37)
[2021-03-08] MEDS ORDERED: Phenylephrine 10 MG/ML VIAL ONE (14:30)
[2021-03-08] MEDS ORDERED: Dexamethasone 20 MG/5 ML VIAL ONE (14:45)
[2021-03-08] MEDS ORDERED: Lidocaine 1% PF 5 ML VIAL ONE (14:45)
[2021-03-08] MEDS ORDERED: Succinylcholine 200 MG/10 ml SYRINGE FS ONE (14:45)
[2021-03-08] MEDS ORDERED: Ondansetron PF 4 MG/2 ML Vial ONE (14:45)
[2021-03-08] MEDS ORDERED: Sodium Chloride 0.9% 30 ML ONE ×2 (15:16→17:01)
[2021-03-08] MEDS ORDERED: Promethazine HCl 25 MG/ML VIAL SLOW IVP PRN (16:24)
[2021-03-08] MEDS ORDERED: Ondansetron HCl/PF 4 MG/2 ML Vial IVP PRN (16:24)
[2021-03-08] MEDS ORDERED: Promethazine HCl 25 MG/ML VIAL IM PRN (16:24)
[2021-03-08] MEDS ORDERED: traMADol HCl 50 MG TAB PO PRN (18:13)
[2021-03-08] MEDS: HYDROcodone/Acetaminophen 5/325 mg Tablet PO PRN ×2 (18:23→23:18)
[2021-03-08 18:43] LABS: #Eosinphils 0.1 thou/uL (0.0-0.7); #Lymphocytes 0.4 thou/uL (1.20-3.40); #Monocytes 0.4 thou/uL (0.11-0.59); #Neutrophils 12.5 thou/uL (1.40-6.50); %Basophils 0.1 % (0.0-1.0); %Eosinophils 0.7 % (0.0-10.0); %Lymphocytes 3.1 % (21.0-51.0); %Monocytes 2.8 % (0.0-10.0); %Neutrophils 93.4 % (42.0-75.0); Hemoglobin 9.8 g/dL (12.0-16.0); Mean Corpuscular HGB CONC 31.4 g/dL (32.0-36.0); Mean Corpuscular Hemoglobin 29.9 pg (27.0-31.0); Mean Corpuscular Volume 95.1 fL (78.0-98.0); Mean Platelet Volume 9.9 fL (7.4-10.4); Platelet Count 172 thou/uL (130-400); RBC Distribution Width 13.8 % (11.5-14.5); Red Blood Cell (RBC) Count 3.27 mill/uL (4.20-5.40); White Blood Cell (WBC) Count 13.4 thou/uL (4.8-10.8)
[2021-03-08] MEDS: Amoxicillin/Potassium Clav 500 MG TAB PO SCH (21:28)
[2021-03-08] MEDS: Zolpidem Tartrate 5 MG TAB PO PRN (21:28)
[2021-03-08] MEDS: Atorvastatin Calcium 40 MG TAB PO SCH (21:28)
[2021-03-09 05:45] LABS: #Lymphocytes 0.4 thou/uL (1.20-3.40); #Monocytes 0.2 thou/uL (0.11-0.59); #Neutrophils 11.2 thou/uL (1.40-6.50); %Eosinophils 0.1 % (0.0-10.0); %Lymphocytes 3.2 % (21.0-51.0); %Monocytes 2.1 % (0.0-10.0); %Neutrophils 94.6 % (42.0-75.0); Hemoglobin 9.7 g/dL (12.0-16.0); Mean Corpuscular Hemoglobin 30.7 pg (27.0-31.0); Mean Corpuscular Volume 96.1 fL (78.0-98.0); Mean Platelet Volume 10.3 fL (7.4-10.4); Platelet Count 149 thou/uL (130-400); RBC Distribution Width 13.7 % (11.5-14.5); Red Blood Cell (RBC) Count 3.17 mill/uL (4.20-5.40); White Blood Cell (WBC) Count 11.8 thou/uL (4.8-10.8)
[2021-03-09 06:02] LABS: Anion Gap 15 mmol/L (10-20); BUN (Urea Nitrogen) 88 mg/dL (9.8-20.1); Calc. Creatinine Clearance 21 mL/min (70-130); Calcium 7.8 mg/dL (7.8-10.44); Carbon Dioxide 28 mmol/L (23-31); Chloride 98 mmol/L (98-107); Glucose 245 mg/dL (80-115); Sodium 136 mmol/L (136-145)
[2021-03-09] MEDS: Mometasone 200 MCG/Formoterol 5 MCG 120 PUFF INHALER INH SCH ×2 (07:33→18:10)
[2021-03-09] MEDS: Polyethylene Glycol 3350 17 GM Packet PO SCH (08:20)
[2021-03-09] MEDS: buPROPion 75 MG TAB PO SCH (08:21)
[2021-03-09] MEDS: Clopidogrel Bisulfate 75 MG TAB PO SCH (08:22)
[2021-03-09] MEDS: cloNIDine 0.2 MG TAB PO SCH ×2 (08:22→21:35)
[2021-03-09] MEDS: Amoxicillin/Potassium Clav 500 MG TAB PO SCH ×2 (08:22→21:34)
[2021-03-09] MEDS: hydrALAZINE 25 MG TAB PO SCH ×3 (08:23→21:35)
[2021-03-09] MEDS: guaiFENesin ER 600 MG TAB PO SCH ×2 (08:23→21:34)
[2021-03-09] MEDS: Carvedilol 25 MG TAB PO SCH ×2 (08:23→17:13)
[2021-03-09] MEDS: Furosemide 40 MG TAB PO SCH ×2 (08:23→14:51)
[2021-03-09] MEDS: NIFEdipine XL 60 MG TAB PO SCH (08:23)
[2021-03-09] MEDS: Cholecalciferol 1,000 UNITS (25 MCG) TAB PO SCH (08:24)
[2021-03-09] MEDS: Gabapentin 100 MG CAP PO SCH ×3 (08:24→21:34)
[2021-03-09] MEDS: Aspirin 325 MG TAB PO SCH (08:25)
[2021-03-09] MEDS: Ferrous Sulfate 325 MG TAB PO SCH ×2 (08:25→17:12)
[2021-03-09] MEDS ORDERED: Lantus 1000 UNITS/10 ML VIAL SC SCH (09:00)
[2021-03-09] MEDS: HumaLOG 300 UNITS/3 ML VIAL SC PRN ×2 (17:13→21:34)
[2021-03-09] MEDS: Zolpidem Tartrate 5 MG TAB PO PRN (21:34)
[2021-03-09] MEDS: Atorvastatin Calcium 40 MG TAB PO SCH (21:35)
[2021-03-10] MEDS: HumaLOG 300 UNITS/3 ML VIAL SC PRN ×2 (06:39→22:27)
[2021-03-10] MEDS: Mometasone 200 MCG/Formoterol 5 MCG 120 PUFF INHALER INH SCH ×2 (07:07→18:44)
[2021-03-10] MEDS ORDERED: Lantus 1000 UNITS/10 ML VIAL SC SCH (09:00)
[2021-03-10 10:16] LABS: Fungus Stain Final report (.)
[2021-03-10] MEDS ORDERED: Fentanyl 100 MCG/2 ML VIAL ONE ×2 (10:29→11:47)
[2021-03-10] MEDS ORDERED: Midazolam HCl 2 mg/2 ml Vial ONE (10:29)
[2021-03-10] MEDS ORDERED: Ketamine 50 MG/ML (10ML VIAL) ONE (10:30)
[2021-03-10] MEDS ORDERED: PROPOFOL 200 MG/20 ML VIAL ONE (10:47)
[2021-03-10] MEDS ORDERED: Bupivacaine 0.25% HCL 30 ML VIAL ONE (10:49)
[2021-03-10] MEDS ORDERED: Lidocaine 1% w/Epinephrine 1:100K 20 ML VIAL ONE (10:49)
[2021-03-10] MEDS: Amoxicillin/Potassium Clav 500 MG TAB PO SCH ×2 (12:45→21:05)
[2021-03-10] MEDS: guaiFENesin ER 600 MG TAB PO SCH ×2 (12:46→21:07)
[2021-03-10] MEDS: cloNIDine 0.2 MG TAB PO SCH ×2 (12:46→21:05)
[2021-03-10] MEDS: buPROPion 75 MG TAB PO SCH (12:46)
[2021-03-10] MEDS: Aspirin 325 MG TAB PO SCH (12:46)
[2021-03-10] MEDS: hydrALAZINE 25 MG TAB PO SCH ×3 (12:47→21:06)
[2021-03-10] MEDS: NIFEdipine XL 60 MG TAB PO SCH (12:47)
[2021-03-10] MEDS: Carvedilol 25 MG TAB PO SCH ×2 (12:47→15:43)
[2021-03-10] MEDS: Gabapentin 100 MG CAP PO SCH ×3 (12:47→21:06)
[2021-03-10] MEDS: Cholecalciferol 1,000 UNITS (25 MCG) TAB PO SCH (12:48)
[2021-03-10] MEDS: Furosemide 40 MG TAB PO SCH ×2 (12:48→12:52)
[2021-03-10] MEDS: Ferrous Sulfate 325 MG TAB PO SCH ×2 (12:48→15:43)
[2021-03-10] MEDS: Clopidogrel Bisulfate 75 MG TAB PO SCH (12:48)
[2021-03-10] MEDS: Polyethylene Glycol 3350 17 GM Packet PO SCH (12:49)
[2021-03-10] MEDS: Atorvastatin Calcium 40 MG TAB PO SCH (21:05)
[2021-03-10] MEDS: Heparin 5,000 UNITS/ML VIAL SC SCH (21:07)
[2021-03-10] MEDS: Zolpidem Tartrate 5 MG TAB PO PRN (21:14)
[2021-03-10] MEDS: HYDROcodone/Acetaminophen 5/325 mg Tablet PO PRN (21:15)
[2021-03-11 05:07] LABS: #Eosinphils 0.2 thou/uL (0.0-0.7); #Monocytes 0.7 thou/uL (0.11-0.59); #Neutrophils 7.1 thou/uL (1.40-6.50); %Basophils 0.1 % (0.0-1.0); %Eosinophils 2.1 % (0.0-10.0); %Lymphocytes 11.6 % (21.0-51.0); %Monocytes 7.6 % (0.0-10.0); %Neutrophils 78.6 % (42.0-75.0); Hemoglobin 8.3 g/dL (12.0-16.0); Mean Corpuscular HGB CONC 32.3 g/dL (32.0-36.0); Mean Corpuscular Hemoglobin 30.9 pg (27.0-31.0); Mean Corpuscular Volume 95.7 fL (78.0-98.0); Mean Platelet Volume 10.4 fL (7.4-10.4); Platelet Count 143 thou/uL (130-400); RBC Distribution Width 13.8 % (11.5-14.5); Red Blood Cell (RBC) Count 2.66 mill/uL (4.20-5.40)
[2021-03-11 05:24] LABS: Anion Gap 13 mmol/L (10-20); BUN (Urea Nitrogen) 82 mg/dL (9.8-20.1); Calc. Creatinine Clearance 20 mL/min (70-130); Carbon Dioxide 29 mmol/L (23-31); Chloride 99 mmol/L (98-107); Glucose 183 mg/dL (80-115); Potassium 4.8 mmol/L (3.5-5.1); Sodium 136 mmol/L (136-145)
[2021-03-11] MEDS: HumaLOG 300 UNITS/3 ML VIAL SC PRN ×3 (06:16→22:37)
[2021-03-11] MEDS: Mometasone 200 MCG/Formoterol 5 MCG 120 PUFF INHALER INH SCH ×2 (07:08→18:47)
[2021-03-11] MEDS: Lantus 1000 UNITS/10 ML VIAL SC SCH (08:51)
[2021-03-11] MEDS: NIFEdipine XL 60 MG TAB PO SCH (08:51)
[2021-03-11] MEDS: hydrALAZINE 25 MG TAB PO SCH ×3 (08:52→21:10)
[2021-03-11] MEDS: guaiFENesin ER 600 MG TAB PO SCH ×2 (08:53→21:11)
[2021-03-11] MEDS: Furosemide 40 MG TAB PO SCH ×2 (08:53→15:12)
[2021-03-11] MEDS: Ferrous Sulfate 325 MG TAB PO SCH ×2 (08:53→16:19)
[2021-03-11] MEDS: Carvedilol 25 MG TAB PO SCH ×2 (08:53→16:19)
[2021-03-11] MEDS: Clopidogrel Bisulfate 75 MG TAB PO SCH (08:53)
[2021-03-11] MEDS: Aspirin 325 MG TAB PO SCH (08:53)
[2021-03-11] MEDS: cloNIDine 0.2 MG TAB PO SCH ×2 (08:53→21:10)
[2021-03-11] MEDS: Gabapentin 100 MG CAP PO SCH ×3 (08:53→21:11)
[2021-03-11] MEDS: Polyethylene Glycol 3350 17 GM Packet PO SCH (08:54)
[2021-03-11] MEDS: buPROPion 75 MG TAB PO SCH (08:54)
[2021-03-11] MEDS: Amoxicillin/Potassium Clav 500 MG TAB PO SCH ×2 (08:54→21:10)
[2021-03-11] MEDS: Cholecalciferol 1,000 UNITS (25 MCG) TAB PO SCH (08:54)
[2021-03-11] MEDS: Heparin 5,000 UNITS/ML VIAL SC SCH ×3 (08:54→21:12)
[2021-03-11 13:12] VITALS: BMI 35.9
[2021-03-11] MEDS: Atorvastatin Calcium 40 MG TAB PO SCH (21:11)
[2021-03-11] MEDS: Zolpidem Tartrate 5 MG TAB PO PRN (21:11)
[2021-03-11 21:13] LABS: Hemoglobin 9.2 g/dL (12.0-16.0)
[2021-03-12] MEDS: HumaLOG 300 UNITS/3 ML VIAL SC PRN (06:02)
[2021-03-12] MEDS: Mometasone 200 MCG/Formoterol 5 MCG 120 PUFF INHALER INH SCH ×2 (07:41→18:30)
[2021-03-12] MEDS: Cholecalciferol 1,000 UNITS (25 MCG) TAB PO SCH (09:31)
[2021-03-12] MEDS: NIFEdipine XL 60 MG TAB PO SCH (09:31)
[2021-03-12] MEDS: Aspirin 325 MG TAB PO SCH (09:32)
[2021-03-12] MEDS: cloNIDine 0.2 MG TAB PO SCH (09:32)
[2021-03-12] MEDS: buPROPion 75 MG TAB PO SCH (09:32)
[2021-03-12] MEDS: guaiFENesin ER 600 MG TAB PO SCH (09:32)
[2021-03-12] MEDS: Furosemide 40 MG TAB PO SCH ×2 (09:32→13:55)
[2021-03-12] MEDS: Clopidogrel Bisulfate 75 MG TAB PO SCH (09:32)
[2021-03-12] MEDS: hydrALAZINE 25 MG TAB PO SCH ×2 (09:33→13:54)
[2021-03-12] MEDS: Gabapentin 100 MG CAP PO SCH ×2 (09:33→13:54)
[2021-03-12] MEDS: Ferrous Sulfate 325 MG TAB PO SCH ×2 (09:34→16:26)
[2021-03-12] MEDS: Carvedilol 25 MG TAB PO SCH ×2 (09:34→16:25)
[2021-03-12] MEDS: Heparin 5,000 UNITS/ML VIAL SC SCH ×2 (09:35→13:57)
[2021-03-12] MEDS: Lantus 1000 UNITS/10 ML VIAL SC SCH (09:36)
[2021-03-12] MEDS: Polyethylene Glycol 3350 17 GM Packet PO SCH (09:37)
[2021-03-12] MEDS: Amoxicillin/Potassium Clav 500 MG TAB PO SCH (09:37)
[2021-03-12 17:10] VITALS: BP 126/59; TEMP 98.3
[2021-04-05 10:10] LABS: Fungus Culture Final report (.)
== END 2021-03-12 19:40 | disposition home health service (06) | DRG 264 ==
LOC: ERS 22:08 → ERHOLD 23:58 → CCU 02-22 01:23 → IMCU/EMU 02-22 11:18 → 2NO 02-24 20:09
PROVIDERS: ADMIT Student in an Organized Health Care Education/Training Program; ATTEND Student in an Organized Health Care Education/Training Program
PROC: 30233N1 Transfusion of Nonautologous Red Blood Cells into Peripheral Vein, Percutaneous Approach (ICD-10-PCS; 2021-02-22)
PROC: 3E1M39Z Irrigation of Peritoneal Cavity using Dialysate, Percutaneous Approach (ICD-10-PCS; 2021-02-22)
PROC: 0J9D0ZZ Drainage of Right Upper Arm Subcutaneous Tissue and Fascia, Open Approach (ICD-10-PCS; principal; 2021-03-05)
PROC: 0JBD0ZZ Excision of Right Upper Arm Subcutaneous Tissue and Fascia, Open Approach (ICD-10-PCS; 2021-03-08)
PROC: B518ZZA Fluoroscopy of Superior Vena Cava, Guidance (ICD-10-PCS; 2021-03-08)
PROC: 02HV33Z Insertion of Infusion Device into Superior Vena Cava, Percutaneous Approach (ICD-10-PCS; 2021-03-08)
PROC: B548ZZA Ultrasonography of Superior Vena Cava, Guidance (ICD-10-PCS; 2021-03-08)
PROC: 3E043XZ Introduction of Vasopressor into Central Vein, Percutaneous Approach (ICD-10-PCS; 2021-03-08)
PROC: 0JQD0ZZ Repair Right Upper Arm Subcutaneous Tissue and Fascia, Open Approach (ICD-10-PCS; 2021-03-10)
DX: I16.1 Hypertensive emergency (principal); N18.6 End stage renal disease; I21.A1 Myocardial infarction type 2; I50.33 Acute on chronic diastolic (congestive) heart failure; J96.01 Acute respiratory failure with hypoxia; I42.9 Cardiomyopathy, unspecified; J44.1 Chronic obstructive pulmonary disease with (acute) exacerbation; L02.413 Cutaneous abscess of right upper limb; N17.9 Acute kidney failure, unspecified; L76.32 Postprocedural hematoma of skin and subcutaneous tissue following other procedure; T82.7XXA Infection and inflammatory reaction due to other cardiac and vascular devices, implants and grafts, initial encounter; Z20.822 Contact with and (suspected) exposure to COVID-19; Y83.8 Other surgical procedures as the cause of abnormal reaction of the patient, or of later complication, without mention of misadventure at the time of the procedure; E11.22 Type 2 diabetes mellitus with diabetic chronic kidney disease; E78.5 Hyperlipidemia, unspecified; E78.00 Pure hypercholesterolemia, unspecified; E11.51 Type 2 diabetes mellitus with diabetic peripheral angiopathy without gangrene; F41.9 Anxiety disorder, unspecified; F32.9 Major depressive disorder, single episode, unspecified; F12.10 Cannabis abuse, uncomplicated; I25.10 Atherosclerotic heart disease of native coronary artery without angina pectoris; I65.22 Occlusion and stenosis of left carotid artery; I48.91 Unspecified atrial fibrillation; N39.3 Stress incontinence (female) (male); D63.1 Anemia in chronic kidney disease; I11.0 Hypertensive heart disease with heart failure; K59.00 Constipation, unspecified; E11.649 Type 2 diabetes mellitus with hypoglycemia without coma; B95.2 Enterococcus as the cause of diseases classified elsewhere; Z87.891 Personal history of nicotine dependence; Z99.2 Dependence on renal dialysis; Z86.73 Personal history of transient ischemic attack (TIA), and cerebral infarction without residual deficits; Z95.828 Presence of other vascular implants and grafts; Z89.512 Acquired absence of left leg below knee; Z95.810 Presence of automatic (implantable) cardiac defibrillator; Z95.5 Presence of coronary angioplasty implant and graft; Z79.899 Other long term (current) drug therapy; Z79.02 Long term (current) use of antithrombotics/antiplatelets; Z79.82 Long term (current) use of aspirin; I25.2 Old myocardial infarction; Z86.74 Personal history of sudden cardiac arrest; Z86.16 Personal history of COVID-19; Z86.711 Personal history of pulmonary embolism; Z90.89 Acquired absence of other organs; Z86.718 Personal history of other venous thrombosis and embolism
CPT/HCPCS: 36415; 36416; 36430; 71045; 80048; 80053; 82553; 83735; 84484; 85025; 85520; 85730; 86850; 86900; 86901; 87070; 87077; 87102; 87186; 87205; 87206; 87340; 90945; 93005; 93306; 94640; 94664; 96365; 96366; 96375; C1751; G0257; J0360; J0696; J1100; J1644; J1815; J1940; J2250; J2370; J2405; J2543; J2704; J2720; J2920; J2930; J3010; J3475; J3490; J7512; J7620; P9016; P9047; Q5105; S0020; U0002

== ENCOUNTER 2021-03-17 04:31 | Inpatient (IN) | payer MEDICARE ==
[2021-03-17 05:24] LABS: #Eosinphils 0.2 thou/uL (0.0-0.7); #Lymphocytes 0.8 thou/uL (1.20-3.40); #Monocytes 0.3 thou/uL (0.11-0.59); #Neutrophils 5.2 thou/uL (1.40-6.50); %Basophils 0.7 % (0.0-1.0); %Eosinophils 2.6 % (0.0-10.0); %Lymphocytes 12.4 % (21.0-51.0); %Monocytes 5.2 % (0.0-10.0); %Neutrophils 79.1 % (42.0-75.0); Hemoglobin 8.8 g/dL (12.0-16.0); Mean Corpuscular HGB CONC 31.6 g/dL (32.0-36.0); Mean Corpuscular Volume 94.8 fL (78.0-98.0); Mean Platelet Volume 9.3 fL (7.4-10.4); Platelet Count 182 thou/uL (130-400); RBC Distribution Width 13.4 % (11.5-14.5); Red Blood Cell (RBC) Count 2.93 mill/uL (4.20-5.40); White Blood Cell (WBC) Count 6.6 thou/uL (4.8-10.8)
[2021-03-17 05:45] LABS: ALT (SGPT) 15 U/L (8-55); AST (SGOT) 14 U/L (5-34); Albumin 3.1 g/dL (3.4-4.8); Alkaline Phosphatase 76 U/L (40-110); Anion Gap 14 mmol/L (10-20); BUN (Urea Nitrogen) 69 mg/dL (9.8-20.1); Bilirubin, Total 0.4 mg/dL (0.2-1.2); Calc. Creatinine Clearance 0 mL/min (70-130); Carbon Dioxide 26 mmol/L (23-31); Chloride 104 mmol/L (98-107); Globulin 2.7 g/dL (2.4-3.5); Glucose 189 mg/dL (80-115); Magnesium 2.3 mg/dL (1.6-2.6); Potassium 4.5 mmol/L (3.5-5.1); Protein, Total 5.8 g/dL (5.8-8.1); Sodium 139 mmol/L (136-145)
[2021-03-17] MEDS ORDERED: Furosemide 20 MG/2 ML VIAL ONE (05:56)
[2021-03-17] MEDS ORDERED: Dextrose 50% Abboject 50 ML SYRINGE SLOW IVP PRN (07:26)
[2021-03-17] MEDS ORDERED: Dextrose 5% in Water 1,000 ML IV PRN (07:26)
[2021-03-17] MEDS ORDERED: Acetaminophen 650 MG Suppository PR PRN (07:26)
[2021-03-17] MEDS ORDERED: Acetaminophen 325 MG TAB PO PRN (07:26)
[2021-03-17] MEDS ORDERED: Fluticasone Propionate Nasal Spray 16 gm Bottle NASAL PRN ×2 (07:45→08:12)
[2021-03-17 08:11] LABS: SARS-CoV-2 NAA Rapid Test Not Detected (NotDetected)
[2021-03-17] MEDS ORDERED: Insulin Glargine 37 UNITS in Pre-Filled Syringe 1 EACH SC SCH (09:00)
[2021-03-17] MEDS ORDERED: Furosemide 40 MG/4 ML VIAL SLOW IVP SCH (09:00)
[2021-03-17] MEDS ORDERED: Non-Formulary Item 1 EACH (Cholecalciferol (Vitamin D3) [Vitamin D3] 1,000 UNIT Capsule) PO SCH (09:00)
[2021-03-17] MEDS ORDERED: guaiFENesin ER 600 MG TAB PO PRN (09:00)
[2021-03-17] MEDS ORDERED: Furosemide 100 MG/10 ML VIAL SLOW IVP SCH (09:00)
[2021-03-17] MEDS ORDERED: Non-Formulary Item 1 EACH (Sertraline Hcl [Sertraline Hcl] 50 MG Tablet) PO SCH (09:00)
[2021-03-17] MEDS ORDERED: Lantus 1000 UNITS/10 ML VIAL SC SCH (09:00)
[2021-03-17] MEDS ORDERED: Aspirin 325 MG TAB ONE (10:56)
[2021-03-17] MEDS ORDERED: EPOETIN ALFA-EPBX (ESRD) 4,000 UNIT/ML VIAL SC SCH (12:00)
[2021-03-17] MEDS: Clopidogrel Bisulfate 75 MG TAB PO SCH (13:00)
[2021-03-17] MEDS: Heparin 5,000 UNITS/ML VIAL SC SCH ×3 (13:00→20:48)
[2021-03-17] MEDS: Lantus 1000 UNITS/10 ML VIAL SC SCH (13:00)
[2021-03-17] MEDS: NIFEdipine XL 60 MG TAB PO SCH (13:00)
[2021-03-17] MEDS: hydrALAZINE 25 MG TAB PO SCH ×3 (13:02→20:47)
[2021-03-17] MEDS: Gabapentin 300 MG CAP PO SCH (14:00)
[2021-03-17] MEDS: Aspirin 325 MG TAB PO SCH (15:01)
[2021-03-17] MEDS: Benzonatate 100 MG CAP PO SCH ×2 (15:05→20:47)
[2021-03-17] MEDS: buPROPion 75 MG TAB PO SCH (16:50)
[2021-03-17] MEDS: Cholecalciferol 1,000 UNITS (25 MCG) TAB PO SCH (16:51)
[2021-03-17] MEDS: Carvedilol 25 MG TAB PO SCH ×2 (16:51→20:48)
[2021-03-17] MEDS: cloNIDine 0.2 MG TAB PO SCH ×2 (16:52→20:47)
[2021-03-17] MEDS: Ferrous Sulfate 325 MG TAB PO SCH (16:53)
[2021-03-17] MEDS: Furosemide 40 MG/4 ML VIAL SLOW IVP SCH (18:11)
[2021-03-17] MEDS: HumaLOG 300 UNITS/3 ML VIAL SC PRN ×2 (18:16→20:48)
[2021-03-17] MEDS: Mometasone 200 MCG/Formoterol 5 MCG 120 PUFF INHALER INH SCH (18:47)
[2021-03-17] MEDS: Atorvastatin Calcium 40 MG TAB PO SCH (20:48)
[2021-03-17] MEDS: Triple Antibiotic Ointment 30 GM TUBE TOP SCH (22:19)
[2021-03-18] MEDS: HumaLOG 300 UNITS/3 ML VIAL SC PRN ×2 (06:02→21:06)
[2021-03-18] MEDS: Benzonatate 100 MG CAP PO SCH ×3 (06:03→21:06)
[2021-03-18] MEDS: Furosemide 40 MG/4 ML VIAL SLOW IVP SCH (06:03)
[2021-03-18 06:26] LABS: #Eosinphils 0.1 thou/uL (0.0-0.7); #Lymphocytes 1.3 thou/uL (1.20-3.40); #Monocytes 0.4 thou/uL (0.11-0.59); #Neutrophils 4.1 thou/uL (1.40-6.50); %Basophils 0.6 % (0.0-1.0); %Eosinophils 2.4 % (0.0-10.0); %Lymphocytes 21.7 % (21.0-51.0); %Neutrophils 69.2 % (42.0-75.0); Hemoglobin 7.7 g/dL (12.0-16.0); Mean Corpuscular HGB CONC 32.2 g/dL (32.0-36.0); Mean Corpuscular Hemoglobin 30.7 pg (27.0-31.0); Mean Corpuscular Volume 95.5 fL (78.0-98.0); Mean Platelet Volume 9.4 fL (7.4-10.4); Platelet Count 163 thou/uL (130-400); RBC Distribution Width 13.5 % (11.5-14.5); Red Blood Cell (RBC) Count 2.49 mill/uL (4.20-5.40); White Blood Cell (WBC) Count 5.9 thou/uL (4.8-10.8)
[2021-03-18] MEDS: Mometasone 200 MCG/Formoterol 5 MCG 120 PUFF INHALER INH SCH ×2 (06:40→18:57)
[2021-03-18 06:47] LABS: Anion Gap 14 mmol/L (10-20); BUN (Urea Nitrogen) 77 mg/dL (9.8-20.1); Calc. Creatinine Clearance 21 mL/min (70-130); Calcium 7.8 mg/dL (7.8-10.44); Carbon Dioxide 29 mmol/L (23-31); Chloride 104 mmol/L (98-107); Glucose 188 mg/dL (80-115); Magnesium 2.1 mg/dL (1.6-2.6); Potassium 5.1 mmol/L (3.5-5.1); Sodium 142 mmol/L (136-145)
[2021-03-18 07:30] LABS: Anion Gap 15 mmol/L (10-20); BUN (Urea Nitrogen) 73 mg/dL (9.8-20.1); Calc. Creatinine Clearance 22 mL/min (70-130); Calcium 7.8 mg/dL (7.8-10.44); Carbon Dioxide 26 mmol/L (23-31); Chloride 104 mmol/L (98-107); Glucose 174 mg/dL (80-115); Potassium 4.5 mmol/L (3.5-5.1); Sodium 140 mmol/L (136-145)
[2021-03-18] MEDS ORDERED: Furosemide 20 MG/2 ML VIAL SLOW IVP SCH (07:45)
[2021-03-18 10:24] LABS: #Eosinphils 0.2 thou/uL (0.0-0.7); #Lymphocytes 1.3 thou/uL (1.20-3.40); #Monocytes 0.4 thou/uL (0.11-0.59); #Neutrophils 4.6 thou/uL (1.40-6.50); %Basophils 0.5 % (0.0-1.0); %Eosinophils 2.4 % (0.0-10.0); %Lymphocytes 20.1 % (21.0-51.0); %Monocytes 5.9 % (0.0-10.0); %Neutrophils 71.1 % (42.0-75.0); Hemoglobin 8.2 g/dL (12.0-16.0); Mean Corpuscular Hemoglobin 29.5 pg (27.0-31.0); Mean Corpuscular Volume 95.2 fL (78.0-98.0); Platelet Count 176 thou/uL (130-400); RBC Distribution Width 13.4 % (11.5-14.5); Red Blood Cell (RBC) Count 2.79 mill/uL (4.20-5.40); White Blood Cell (WBC) Count 6.4 thou/uL (4.8-10.8)
[2021-03-18] MEDS: buPROPion 75 MG TAB PO SCH (10:35)
[2021-03-18] MEDS: hydrALAZINE 25 MG TAB PO SCH ×3 (10:35→21:05)
[2021-03-18] MEDS: NIFEdipine XL 60 MG TAB PO SCH (10:35)
[2021-03-18] MEDS: Cholecalciferol 1,000 UNITS (25 MCG) TAB PO SCH (10:35)
[2021-03-18] MEDS: Clopidogrel Bisulfate 75 MG TAB PO SCH (10:35)
[2021-03-18] MEDS: Gabapentin 300 MG CAP PO SCH (10:36)
[2021-03-18] MEDS: cloNIDine 0.2 MG TAB PO SCH ×2 (10:36→21:05)
[2021-03-18] MEDS: Carvedilol 25 MG TAB PO SCH ×2 (10:37→21:06)
[2021-03-18] MEDS: Aspirin 325 MG TAB PO SCH (10:38)
[2021-03-18] MEDS: Heparin 5,000 UNITS/ML VIAL SC SCH ×3 (10:39→21:06)
[2021-03-18] MEDS: Lantus 1000 UNITS/10 ML VIAL SC SCH (12:30)
[2021-03-18 12:50] VITALS: BMI 35.9
[2021-03-18] MEDS ORDERED: Furosemide 40 MG/4 ML VIAL SLOW IVP SCH (16:45)
[2021-03-18] MEDS ORDERED: Sodium Chloride 0.65% Nasal 44 ML BOT EA NARE PRN (21:03)
[2021-03-18] MEDS: Triple Antibiotic Ointment 30 GM TUBE TOP SCH (21:04)
[2021-03-18] MEDS: Atorvastatin Calcium 40 MG TAB PO SCH (21:05)
[2021-03-19] MEDS ORDERED: Furosemide 40 MG/4 ML VIAL SLOW IVP SCH ×2 (06:00→11:00)
[2021-03-19 06:19] LABS: #Eosinphils 0.2 thou/uL (0.0-0.7); #Lymphocytes 1.1 thou/uL (1.20-3.40); #Monocytes 0.3 thou/uL (0.11-0.59); #Neutrophils 3.3 thou/uL (1.40-6.50); %Basophils 0.8 % (0.0-1.0); %Eosinophils 3.2 % (0.0-10.0); %Lymphocytes 21.7 % (21.0-51.0); %Monocytes 6.7 % (0.0-10.0); %Neutrophils 67.6 % (42.0-75.0); Hemoglobin 7.9 g/dL (12.0-16.0); Mean Corpuscular HGB CONC 31.9 g/dL (32.0-36.0); Mean Corpuscular Hemoglobin 30.3 pg (27.0-31.0); Mean Platelet Volume 9.4 fL (7.4-10.4); Platelet Count 182 thou/uL (130-400); RBC Distribution Width 13.3 % (11.5-14.5); Red Blood Cell (RBC) Count 2.59 mill/uL (4.20-5.40); White Blood Cell (WBC) Count 4.9 thou/uL (4.8-10.8)
[2021-03-19 06:29] LABS: Anion Gap 10 mmol/L (10-20); BUN (Urea Nitrogen) 73 mg/dL (9.8-20.1); Calc. Creatinine Clearance 21 mL/min (70-130); Calcium 7.9 mg/dL (7.8-10.44); Carbon Dioxide 30 mmol/L (23-31); Chloride 102 mmol/L (98-107); Glucose 190 mg/dL (80-115); Potassium 4.3 mmol/L (3.5-5.1); Sodium 138 mmol/L (136-145)
[2021-03-19] MEDS: Benzonatate 100 MG CAP PO SCH ×2 (06:31→12:55)
[2021-03-19] MEDS: HumaLOG 300 UNITS/3 ML VIAL SC PRN ×2 (06:32→12:58)
[2021-03-19] MEDS: Mometasone 200 MCG/Formoterol 5 MCG 120 PUFF INHALER INH SCH (07:49)
[2021-03-19] MEDS: buPROPion 75 MG TAB PO SCH (08:41)
[2021-03-19] MEDS: Carvedilol 25 MG TAB PO SCH (08:41)
[2021-03-19] MEDS: Cholecalciferol 1,000 UNITS (25 MCG) TAB PO SCH (08:42)
[2021-03-19] MEDS: Aspirin 325 MG TAB PO SCH (08:42)
[2021-03-19] MEDS: hydrALAZINE 25 MG TAB PO SCH ×2 (08:42→16:35)
[2021-03-19] MEDS: Gabapentin 300 MG CAP PO SCH (08:42)
[2021-03-19] MEDS: NIFEdipine XL 60 MG TAB PO SCH (08:43)
[2021-03-19] MEDS: cloNIDine 0.2 MG TAB PO SCH (08:43)
[2021-03-19] MEDS: Heparin 5,000 UNITS/ML VIAL SC SCH ×2 (08:43→16:37)
[2021-03-19] MEDS: Clopidogrel Bisulfate 75 MG TAB PO SCH (08:43)
[2021-03-19] MEDS: Ferrous Sulfate 325 MG TAB PO SCH (08:43)
[2021-03-19] MEDS: Lantus 1000 UNITS/10 ML VIAL SC SCH (08:49)
[2021-03-19] MEDS ORDERED: Ascorbic Acid 500 mg Chewable Tablet PO SCH (09:00)
[2021-03-19] MEDS ORDERED: EPOETIN ALFA-EPBX (ESRD) 10,000 UNIT/ML VIAL SC SCH (11:00)
[2021-03-19] MEDS ORDERED: Furosemide 40 MG TAB PO SCH (14:00)
[2021-03-19] MEDS ORDERED: Furosemide 100 MG/10 ML VIAL SLOW IVP SCH (14:00)
[2021-03-19] MEDS ORDERED: Furosemide 20 MG TAB PO SCH ×2 (14:00)
[2021-03-19 16:37] VITALS: BP 122/62
[2021-03-19 16:40] VITALS: TEMP 97.8
== END 2021-03-19 18:24 | disposition home health service (06) | DRG 291 ==
LOC: ERS 04:31 → T4-A 12:08
PROVIDERS: ADMIT Student in an Organized Health Care Education/Training Program; ATTEND Student in an Organized Health Care Education/Training Program
DX: I13.2 Hypertensive heart and chronic kidney disease with heart failure and with stage 5 chronic kidney disease, or end stage renal disease (principal); I50.33 Acute on chronic diastolic (congestive) heart failure; N18.6 End stage renal disease; I44.2 Atrioventricular block, complete; J44.9 Chronic obstructive pulmonary disease, unspecified; E66.9 Obesity, unspecified; Z20.822 Contact with and (suspected) exposure to COVID-19; E11.22 Type 2 diabetes mellitus with diabetic chronic kidney disease; E11.51 Type 2 diabetes mellitus with diabetic peripheral angiopathy without gangrene; E78.5 Hyperlipidemia, unspecified; F32.9 Major depressive disorder, single episode, unspecified; D63.1 Anemia in chronic kidney disease; F19.10 Other psychoactive substance abuse, uncomplicated; E78.00 Pure hypercholesterolemia, unspecified; Z79.82 Long term (current) use of aspirin; Z79.4 Long term (current) use of insulin; Z79.51 Long term (current) use of inhaled steroids; Z79.899 Other long term (current) drug therapy; Z99.2 Dependence on renal dialysis; I25.2 Old myocardial infarction; Z95.810 Presence of automatic (implantable) cardiac defibrillator; Z68.35 Body mass index [BMI] 35.0-35.9, adult; Z95.5 Presence of coronary angioplasty implant and graft; Z89.512 Acquired absence of left leg below knee; Z95.1 Presence of aortocoronary bypass graft; Z87.891 Personal history of nicotine dependence; Z86.73 Personal history of transient ischemic attack (TIA), and cerebral infarction without residual deficits
CPT/HCPCS: 0240U; 36415; 36416; 71045; 80048; 80053; 83735; 83880; 85025; 86850; 86900; 86901; 93005; 94640; 96374; J1644; J1815; J1940; J7620; Q5105

== ENCOUNTER 2021-08-11 14:52 | Emergency (ER) | payer MEDICARE ==
[~2021-08-11 14:52] MED LIST changes: -ISOVUE-370 76%-LOCM 1 ML ONE; +Iopamidol-370 76% 500 ML 1 ML ONE
[2021-08-11 16:27] LABS: #Basophils 0.1 thou/uL (0.0-0.2); #Eosinphils 0.2 thou/uL (0.0-0.7); #Lymphocytes 1.9 thou/uL (1.20-3.40); #Monocytes 0.5 thou/uL (0.11-0.59); #Neutrophils 6.6 thou/uL (1.40-6.50); %Basophils 0.6 % (0.0-1.0); %Eosinophils 2.1 % (0.0-10.0); %Lymphocytes 20.9 % (21.0-51.0); %Monocytes 5.5 % (0.0-10.0); %Neutrophils 70.8 % (42.0-75.0); Hemoglobin 12.1 g/dL (12.0-16.0); Mean Corpuscular HGB CONC 31.3 g/dL (32.0-36.0); Mean Corpuscular Hemoglobin 28.1 pg (27.0-31.0); Mean Corpuscular Volume 89.7 fL (78.0-98.0); Mean Platelet Volume 8.1 fL (7.4-10.4); Platelet Count 300 thou/uL (130-400); RBC Distribution Width 14.2 % (11.5-14.5); White Blood Cell (WBC) Count 9.3 thou/uL (4.8-10.8)
[2021-08-11 16:49] LABS: ALT (SGPT) 11 U/L (8-55); AST (SGOT) 15 U/L (5-34); Alkaline Phosphatase 75 U/L (40-110); Anion Gap 16 mmol/L (10-20); BUN (Urea Nitrogen) 42 mg/dL (9.8-20.1); Bilirubin, Total 0.4 mg/dL (0.2-1.2); Calc. Creatinine Clearance 0 mL/min (70-130); Calcium 8.4 mg/dL (7.8-10.44); Carbon Dioxide 29 mmol/L (23-31); Chloride 100 mmol/L (98-107); Globulin 2.8 g/dL (2.4-3.5); Glucose 165 mg/dL (80-115); Lipase 47 U/L (8-78); Potassium 4.8 mmol/L (3.5-5.1); Protein, Total 5.8 g/dL (5.8-8.1); Sodium 140 mmol/L (136-145)
[2021-08-11 18:09] LABS: Bacteria/HPF None Seen HPF (None Seen); Bilirubin Negative (Negative); Blood, Urine Negative (Negative); Clarity Clear (Clear); Glucose, Urine (Dipstick) Normal (Negative); Ketone, Urine Negative (Negative); Leukocyte Negative Leu/uL (Negative); Nitrite Negative (Negative); Protein, Urine (Dipstick) 30 mg/dL (Neg-Trace); RBC/HPF 0-3 HPF (0-3); Specific Gravity, Urine 1.006 (1.002-1.036); Squamous Epithelial 0-3 HPF (0-3); Urobilinogen Normal mg/dL (Less than 2); WBC/HPF 0-3 HPF (0-3)
[2021-08-11] MEDS ORDERED: Ondansetron PF 4 MG/2 ML Vial ONE (18:55)
[2021-08-11] MEDS ORDERED: Morphine 4 MG/ML VIAL ONE (18:55)
[2021-08-11 19:41] LABS: WBC/Nucleated-Auto (BF) 36 /cu.mm
[2021-08-11 20:14] LABS: RBC Count-Automated (BF) 9 /cu.mm
[2021-08-11 20:16] LABS: Body Fluid Source Peritoneal Fluid
[2021-08-11 20:17] LABS: BF Color Colorless; Clarity Cloudy/Turbid (Clear); Tube # EDTA
[2021-08-11 20:31] LABS: BF Segmented Neutrophils 32 %; Cell Count Non Hematic 4 %; Eosinophils 4 %; Lymphocytes 60 %
== END 2021-08-11 20:20 | disposition home or self-care (01) ==
LOC: ERS 14:52
DX: R10.13 Epigastric pain (principal); I13.0 Hypertensive heart and chronic kidney disease with heart failure and stage 1 through stage 4 chronic kidney disease, or unspecified chronic kidney disease; E11.51 Type 2 diabetes mellitus with diabetic peripheral angiopathy without gangrene; N18.4 Chronic kidney disease, stage 4 (severe); I50.9 Heart failure, unspecified; E78.5 Hyperlipidemia, unspecified; I49.01 Ventricular fibrillation; I25.2 Old myocardial infarction; Z86.73 Personal history of transient ischemic attack (TIA), and cerebral infarction without residual deficits; Z99.2 Dependence on renal dialysis; Z79.899 Other long term (current) drug therapy
CPT/HCPCS: 36415; 74177; 80053; 81003; 81015; 83605; 83690; 85025; 85060; 87040; 87070; 87205; 89051; 96374; 96375; J2270; J2405; Q9967

== ENCOUNTER 2021-10-15 08:58 | Emergency (ER) | payer MEDICARE ==
[2021-10-15] MEDS ORDERED: Boostrix 0.5 ML (Tdap) VIAL ONE (09:23)
[2021-10-15] MEDS ORDERED: Xylocaine 1% w/ Epi 1:100K 10 ML VIAL ONE (09:25)
== END 2021-10-15 10:32 | disposition home or self-care (01) ==
LOC: ERS 08:58
DX: S41.111A Laceration without foreign body of right upper arm, initial encounter (principal); Z23 Encounter for immunization; W26.8XXA Contact with other sharp object(s), not elsewhere classified, initial encounter; I11.0 Hypertensive heart disease with heart failure; I50.9 Heart failure, unspecified; E11.9 Type 2 diabetes mellitus without complications; I25.2 Old myocardial infarction; E78.00 Pure hypercholesterolemia, unspecified; Z86.16 Personal history of COVID-19
CPT/HCPCS: 12004; 90471; 90715

== ENCOUNTER 2021-10-22 06:03 | Observation (INO) | payer MEDICARE ==
[2021-10-22 07:41] LABS: #Eosinphils 0.4 thou/uL (0.0-0.7); #Lymphocytes 1.3 thou/uL (1.20-3.40); #Monocytes 0.5 thou/uL (0.11-0.59); #Neutrophils 6.7 thou/uL (1.40-6.50); %Basophils 0.5 % (0.0-1.0); %Eosinophils 4.4 % (0.0-10.0); %Lymphocytes 14.2 % (21.0-51.0); %Monocytes 5.8 % (0.0-10.0); %Neutrophils 75.1 % (42.0-75.0); Hemoglobin 9.9 g/dL (12.0-16.0); Mean Corpuscular HGB CONC 31.8 g/dL (32.0-36.0); Mean Corpuscular Hemoglobin 30.1 pg (27.0-31.0); Mean Corpuscular Volume 94.8 fL (78.0-98.0); Mean Platelet Volume 8.3 fL (7.4-10.4); Platelet Count 286 thou/uL (130-400); RBC Distribution Width 12.1 % (11.5-14.5); Red Blood Cell (RBC) Count 3.28 mill/uL (4.20-5.40); White Blood Cell (WBC) Count 8.9 thou/uL (4.8-10.8)
[2021-10-22 08:02] LABS: ALT (SGPT) 11 U/L (8-55); AST (SGOT) 17 U/L (5-34); Albumin 2.7 g/dL (3.4-4.8); Alkaline Phosphatase 73 U/L (40-110); Anion Gap 14 mmol/L (10-20); BUN (Urea Nitrogen) 34 mg/dL (9.8-20.1); Bilirubin, Total 0.2 mg/dL (0.2-1.2); Calc. Creatinine Clearance 0 mL/min (70-130); Calcium 7.6 mg/dL (7.8-10.44); Carbon Dioxide 28 mmol/L (23-31); Chloride 103 mmol/L (98-107); Globulin 2.9 g/dL (2.4-3.5); Glucose 195 mg/dL (80-115); Potassium 4.5 mmol/L (3.5-5.1); Protein, Total 5.6 g/dL (5.8-8.1); Sodium 140 mmol/L (136-145)
[2021-10-22 08:25] LABS: CKMB 1.1 ng/mL (0-6.6)
[2021-10-22] MEDS ORDERED: Clopidogrel Bisulfate 75 MG TAB PO SCH (10:15)
[2021-10-22 11:44] LABS: Troponin I 0.033 ng/mL (< 0.028)
[2021-10-22] MEDS ORDERED: Clopidogrel Bisulfate 75 MG TAB ONE (11:52)
[2021-10-22] MEDS ORDERED: Insulin Regular 300 UNITS/3 ML VIAL SC PRN (12:24)
[2021-10-22] MEDS ORDERED: Dextrose 50% Abboject 50 ML SYRINGE SLOW IVP PRN (12:24)
[2021-10-22] MEDS ORDERED: Dextrose 5% in Water 1,000 ML IV PRN (12:24)
[2021-10-22] MEDS ORDERED: Furosemide 40 MG TAB PO SCH (14:00)
[2021-10-22] MEDS ORDERED: hydrALAZINE 25 MG TAB ONE (14:53)
[2021-10-22] MEDS ORDERED: Furosemide 40 MG TAB ONE (14:53)
[2021-10-22] MEDS ORDERED: Heparin 10,000 UNITS/ 10 ML VIAL ONE (14:53)
[2021-10-22] MEDS ORDERED: hydrALAZINE 25 MG TAB PO SCH (15:00)
[2021-10-22] MEDS ORDERED: Heparin 5,000 UNITS/ML VIAL SC SCH (15:00)
[2021-10-22 15:05] LABS: Hemoglobin A1c 6.1 % (4.0-6.0)
[2021-10-22 15:24] LABS: Troponin I 0.033 ng/mL (< 0.028)
[2021-10-22] MEDS ORDERED: Mometasone 200 MCG/Formoterol 5 MCG 120 PUFF INHALER INH SCH (18:30)
[2021-10-22 19:34] LABS: SARS-CoV-2 PCR by NAA Not Detected (NotDetected)
[2021-10-22] MEDS ORDERED: cloNIDine 0.2 MG TAB PO SCH (21:00)
[2021-10-22] MEDS ORDERED: Atorvastatin Calcium 20 MG TAB PO SCH (21:00)
[2021-10-22] MEDS ORDERED: Carvedilol 25 MG TAB PO SCH (21:00)
[2021-10-22] MEDS ORDERED: Lantus 1000 UNITS/10 ML VIAL SC SCH (21:00)
[2021-10-23] MEDS ORDERED: Amlodipine 5 MG TAB PO SCH (09:00)
[2021-10-23] MEDS ORDERED: Aspirin 325 MG TAB PO SCH (09:00)
[2021-10-23] MEDS ORDERED: Clopidogrel Bisulfate 75 MG TAB PO SCH (09:00)
[2021-10-23] MEDS ORDERED: Ascorbic Acid 500 mg Chewable Tablet PO SCH (09:00)
[2021-10-23] MEDS ORDERED: Cholecalciferol 1,000 UNITS (25 MCG) TAB PO SCH (09:00)
[2021-10-23] MEDS ORDERED: Gabapentin 300 MG CAP PO SCH (09:00)
== END 2021-10-22 17:00 | disposition home or self-care (01) ==
LOC: ERS 06:03 → ERHOLD 09:04
PROVIDERS: ADMIT Family Medicine; ATTEND Family Medicine
DX: R07.89 Other chest pain (principal); I16.0 Hypertensive urgency; I13.2 Hypertensive heart and chronic kidney disease with heart failure and with stage 5 chronic kidney disease, or end stage renal disease; E11.22 Type 2 diabetes mellitus with diabetic chronic kidney disease; N18.6 End stage renal disease; I50.31 Acute diastolic (congestive) heart failure; D63.1 Anemia in chronic kidney disease; J44.9 Chronic obstructive pulmonary disease, unspecified; E11.40 Type 2 diabetes mellitus with diabetic neuropathy, unspecified; I25.10 Atherosclerotic heart disease of native coronary artery without angina pectoris; I25.2 Old myocardial infarction; E11.51 Type 2 diabetes mellitus with diabetic peripheral angiopathy without gangrene; R94.31 Abnormal electrocardiogram [ECG] [EKG]; E78.5 Hyperlipidemia, unspecified; F12.10 Cannabis abuse, uncomplicated; E78.00 Pure hypercholesterolemia, unspecified; I44.2 Atrioventricular block, complete; E66.9 Obesity, unspecified; Z66 Do not resuscitate; Z91.14 Patient's other noncompliance with medication regimen; Z91.15 Patient's noncompliance with renal dialysis; Z86.73 Personal history of transient ischemic attack (TIA), and cerebral infarction without residual deficits; Z87.891 Personal history of nicotine dependence; Z79.02 Long term (current) use of antithrombotics/antiplatelets; Z79.4 Long term (current) use of insulin; Z79.82 Long term (current) use of aspirin; Z79.899 Other long term (current) drug therapy; Z95.1 Presence of aortocoronary bypass graft; Z95.5 Presence of coronary angioplasty implant and graft; Z95.810 Presence of automatic (implantable) cardiac defibrillator; Z89.512 Acquired absence of left leg below knee; Z99.2 Dependence on renal dialysis; Z20.822 Contact with and (suspected) exposure to COVID-19
CPT/HCPCS: 71045; 80053; 82553; 83036; 83880; 84484 ×2; 85025; 93005; G0378; U0003; U0005; 36415; J1644

== ENCOUNTER 2022-01-03 10:37 | Inpatient (IN) | payer MEDICARE ==
[2022-01-03 11:23] LABS: #Eosinphils 0.1 thou/uL (0.0-0.7); #Lymphocytes 0.7 thou/uL (1.20-3.40); #Monocytes 0.6 thou/uL (0.11-0.59); %Basophils 0.1 % (0.0-1.0); %Eosinophils 0.9 % (0.0-10.0); %Lymphocytes 6.6 % (21.0-51.0); %Monocytes 5.4 % (0.0-10.0); Hemoglobin 10.7 g/dL (12.0-16.0); Mean Corpuscular HGB CONC 31.4 g/dL (32.0-36.0); Mean Corpuscular Hemoglobin 29.1 pg (27.0-31.0); Mean Corpuscular Volume 92.9 fL (78.0-98.0); Mean Platelet Volume 8.4 fL (7.4-10.4); Platelet Count 240 thou/uL (130-400); RBC Distribution Width 12.5 % (11.5-14.5); Red Blood Cell (RBC) Count 3.66 mill/uL (4.20-5.40); White Blood Cell (WBC) Count 10.3 thou/uL (4.8-10.8)
[2022-01-03 11:36] LABS: ALT (SGPT) 17 U/L (8-55); AST (SGOT) 22 U/L (5-34); Albumin 2.7 g/dL (3.4-4.8); Alkaline Phosphatase 71 U/L (40-110); Anion Gap 16 mmol/L (10-20); BUN (Urea Nitrogen) 37 mg/dL (9.8-20.1); Bilirubin, Total 0.3 mg/dL (0.2-1.2); Calc. Creatinine Clearance 0 mL/min (70-130); Calcium 7.8 mg/dL (7.8-10.44); Carbon Dioxide 26 mmol/L (23-31); Chloride 100 mmol/L (98-107); Globulin 3.1 g/dL (2.4-3.5); Glucose 213 mg/dL (80-115); Lipase 37 U/L (8-78); Protein, Total 5.8 g/dL (5.8-8.1); Sodium 138 mmol/L (136-145)
[2022-01-03] MEDS ORDERED: Ondansetron PF 4 MG/2 ML Vial ONE (11:41)
[2022-01-03 12:06] LABS: CKMB 0.7 ng/mL (0-6.6)
[2022-01-03 12:50] LABS: Bilirubin Negative (Negative); Blood, Urine Trace (Negative); Clarity Turbid (Clear); Glucose, Urine (Dipstick) 50 mg/dL (Negative); Ketone, Urine Negative (Negative); Leukocyte Negative Leu/uL (Negative); Nitrite Negative (Negative); Protein, Urine (Dipstick) 100 mg/dL (Neg-Trace); Specific Gravity, Urine 1.012 (1.002-1.036); Squamous Epithelial 0-3 HPF (0-3); Urobilinogen Normal mg/dL (Less than 2); WBC/HPF 0-3 HPF (0-3)
[2022-01-03 12:59] LABS: Bacteria/HPF 2+ HPF (None Seen)
[2022-01-03 14:12] LABS: HBSAg Index 0.16 S/CO (0-0.99); Hep B Surf Ag Non-Reactive S/CO (NonReactive)
[2022-01-03 15:17] LABS: HBSAB Concentration 1601.97 mIU/mL; Hep B Surf AB Reactive (NonReactive)
[2022-01-03 17:21] VITALS: BMI 32.4
[2022-01-03] MEDS ORDERED: Ondansetron ODT 4 MG TAB SL PRN (18:30)
[2022-01-03] MEDS ORDERED: Ondansetron PF 4 MG/2 ML Vial IVP PRN (18:30)
[2022-01-03] MEDS ORDERED: Acetaminophen 325 MG TAB PO PRN (18:30)
[2022-01-03] MEDS ORDERED: Dextrose 5% in Water 1,000 ML IV PRN (18:54)
[2022-01-03] MEDS ORDERED: Dextrose 50% Abboject 50 ML SYRINGE SLOW IVP PRN (18:54)
[2022-01-03] MEDS ORDERED: Sterile Water 10 ML VIAL IVP SCH (19:00)
[2022-01-03] MEDS ORDERED: Activase 2 MG VIAL CATH SCH (19:00)
[2022-01-03] MEDS: Gabapentin 300 MG CAP PO SCH (21:09)
[2022-01-03] MEDS: Carvedilol 25 MG TAB PO SCH (21:10)
[2022-01-03] MEDS: cloNIDine 0.2 MG TAB PO SCH (21:11)
[2022-01-03] MEDS: Amoxicillin/Potassium Clav 250 MG TAB PO SCH (21:11)
[2022-01-03] MEDS: hydrALAZINE 25 MG TAB PO SCH (21:12)
[2022-01-03] MEDS: Insulin Glargine 30 UNITS/0.3 ML VIAL SC SCH (22:36)
[2022-01-03] MEDS: Atorvastatin Calcium 20 MG TAB PO SCH (22:36)
[2022-01-03 23:45] LABS: SARS-CoV-2 PCR by NAA Not Detected (NotDetected)
[2022-01-04] MEDS ORDERED: Acetaminophen 325 MG TAB PO PRN (04:47)
[2022-01-04 06:05] LABS: #Eosinphils 0.2 thou/uL (0.0-0.7); #Lymphocytes 0.9 thou/uL (1.20-3.40); #Monocytes 0.7 thou/uL (0.11-0.59); #Neutrophils 8.2 thou/uL (1.40-6.50); %Basophils 0.2 % (0.0-1.0); %Eosinophils 1.6 % (0.0-10.0); %Lymphocytes 8.8 % (21.0-51.0); %Monocytes 7.3 % (0.0-10.0); %Neutrophils 82.1 % (42.0-75.0); Hemoglobin 10.2 g/dL (12.0-16.0); Mean Corpuscular HGB CONC 30.5 g/dL (32.0-36.0); Mean Corpuscular Volume 95.1 fL (78.0-98.0); Mean Platelet Volume 8.8 fL (7.4-10.4); Platelet Count 221 thou/uL (130-400); RBC Distribution Width 12.5 % (11.5-14.5); Red Blood Cell (RBC) Count 3.51 mill/uL (4.20-5.40)
[2022-01-04 06:10] LABS: Hemoglobin A1c 6.6 % (4.0-6.0)
[2022-01-04 06:27] LABS: ALT (SGPT) 21 U/L (8-55); AST (SGOT) 31 U/L (5-34); Albumin 2.5 g/dL (3.4-4.8); Alkaline Phosphatase 68 U/L (40-110); Anion Gap 11 mmol/L (10-20); BUN (Urea Nitrogen) 40 mg/dL (9.8-20.1); Bilirubin, Total 0.2 mg/dL (0.2-1.2); Calc. Creatinine Clearance 19 mL/min (70-130); Calcium 7.4 mg/dL (7.8-10.44); Carbon Dioxide 30 mmol/L (23-31); Cardiac Risk 4.3 (Less than 4.5); Chloride 102 mmol/L (98-107); Cholesterol 126 mg/dl (< 200 Desired); Globulin 2.9 g/dL (2.4-3.5); Glucose 116 mg/dL (80-115); HDL Cholesterol 29 mg/dL (>60 Neg Risk); LDL Cholesterol, Calculated 81 mg/dL; Potassium 4.1 mmol/L (3.5-5.1); Protein, Total 5.4 g/dL (5.8-8.1); Sodium 139 mmol/L (136-145); Triglycerides 82 mg/dL (Less than 150)
[2022-01-04] MEDS ORDERED: Famotidine/PF 20 mg/2ml Vial ONE (06:54)
[2022-01-04] MEDS ORDERED: Fentanyl 100 MCG/2 ML VIAL ONE (06:54)
[2022-01-04] MEDS ORDERED: Bupivacaine 0.25% 10 ML VIAL ONE (07:03)
[2022-01-04] MEDS ORDERED: Heparin 10,000 UNITS/ 10 ML VIAL ONE (07:03)
[2022-01-04] MEDS ORDERED: Lidocaine 1% w/Epinephrine 1:100K 20 ML VIAL ONE (07:03)
[2022-01-04] MEDS ORDERED: Midazolam HCl 2 mg/2 ml Vial ONE (07:12)
[2022-01-04] MEDS ORDERED: Ketamine 50 MG/ML (10ML VIAL) ONE (07:12)
[2022-01-04] MEDS ORDERED: CEFAZOLIN 2 GM, Admixture Fee 1 EACH in Sodium Chloride 0.9% 100 ML IVPB SCH (08:30)
[2022-01-04] MEDS ORDERED: ceFAZolin (BATCH) 2 GM/100 ML BAG ONE (08:42)
[2022-01-04] MEDS ORDERED: PROPOFOL 200 MG/20 ML VIAL ONE (09:00)
[2022-01-04] MEDS ORDERED: ePHEDrine 50 MG/ML VIAL ONE (09:00)
[2022-01-04] MEDS ORDERED: Metoclopramide HCl 10 MG/2 ML VIAL ONE (09:00)
[2022-01-04] MEDS ORDERED: Ondansetron PF 4 MG/2 ML Vial ONE (09:00)
[2022-01-04] MEDS ORDERED: Albuterol Sulfate HFA (OR ONLY) ONE ×2 (09:00→09:15)
[2022-01-04] MEDS ORDERED: Lidocaine 1% PF 5 ML VIAL ONE (09:00)
[2022-01-04] MEDS ORDERED: Rocuronium Bromide 10 MG/ML (10ML VIAL) ONE (09:00)
[2022-01-04] MEDS ORDERED: Atorvastatin Calcium 20 MG TAB PO SCH (09:00)
[2022-01-04] MEDS ORDERED: Glycopyrrolate 0.2 MG/ML 5 ML SYRINGE ONE (09:00)
[2022-01-04] MEDS ORDERED: SUGAMMADEX SODIUM 200 MG/2 ML VIAL ONE (10:29)
[2022-01-04] MEDS ORDERED: Promethazine HCl 25 MG/ML VIAL IVPB PRN (10:50)
[2022-01-04] MEDS ORDERED: Promethazine HCl 25 MG/ML VIAL IM PRN (10:50)
[2022-01-04] MEDS ORDERED: Ondansetron HCl/PF 4 MG/2 ML Vial IVP PRN (10:50)
[2022-01-04] MEDS: Insulin Glargine 30 UNITS/0.3 ML VIAL SC SCH ×2 (11:21→21:03)
[2022-01-04] MEDS: hydrALAZINE 25 MG TAB PO SCH ×3 (11:21→20:08)
[2022-01-04] MEDS: Aspirin 325 MG TAB PO SCH (11:22)
[2022-01-04] MEDS: Gabapentin 300 MG CAP PO SCH ×2 (11:22→20:09)
[2022-01-04] MEDS: Ascorbic Acid 500 mg Chewable Tablet PO SCH (11:22)
[2022-01-04] MEDS: cloNIDine 0.2 MG TAB PO SCH ×2 (11:22→20:06)
[2022-01-04] MEDS: Furosemide 40 MG TAB PO SCH ×2 (11:22→14:05)
[2022-01-04] MEDS: Cholecalciferol 1,000 UNITS (25 MCG) TAB PO SCH (11:22)
[2022-01-04] MEDS: Amlodipine 5 MG TAB PO SCH (11:22)
[2022-01-04] MEDS: Carvedilol 25 MG TAB PO SCH ×2 (11:22→20:05)
[2022-01-04] MEDS: Clopidogrel Bisulfate 75 MG TAB PO SCH (11:22)
[2022-01-04] MEDS: Amoxicillin/Potassium Clav 250 MG TAB PO SCH ×2 (11:22→20:05)
[2022-01-04] MEDS: HYDROcodone/Acetaminophen 7.5/325 mg Tablet PO PRN ×2 (14:04→20:10)
[2022-01-04] MEDS: Morphine 4 MG/ML VIAL SLOW IVP PRN ×2 (16:48→22:56)
[2022-01-04] MEDS: Atorvastatin Calcium 20 MG TAB PO SCH (20:06)
[2022-01-04] MEDS ORDERED: Melatonin 3 MG TAB PO PRN (22:41)
[2022-01-05] MEDS: HYDROcodone/Acetaminophen 7.5/325 mg Tablet PO PRN ×4 (00:05→17:19)
[2022-01-05 05:00] LABS: #Eosinphils 0.2 thou/uL (0.0-0.7); #Lymphocytes 1.6 thou/uL (1.20-3.40); #Monocytes 0.6 thou/uL (0.11-0.59); #Neutrophils 6.8 thou/uL (1.40-6.50); %Basophils 0.4 % (0.0-1.0); %Eosinophils 2.3 % (0.0-10.0); %Lymphocytes 17.7 % (21.0-51.0); %Monocytes 6.4 % (0.0-10.0); %Neutrophils 73.2 % (42.0-75.0); Mean Corpuscular HGB CONC 29.7 g/dL (32.0-36.0); Mean Corpuscular Hemoglobin 28.4 pg (27.0-31.0); Mean Corpuscular Volume 95.6 fL (78.0-98.0); Mean Platelet Volume 7.8 fL (7.4-10.4); Platelet Count 318 thou/uL (130-400); RBC Distribution Width 12.5 % (11.5-14.5); Red Blood Cell (RBC) Count 3.88 mill/uL (4.20-5.40); White Blood Cell (WBC) Count 9.3 thou/uL (4.8-10.8)
[2022-01-05 05:11] LABS: ALT (SGPT) 16 U/L (8-55); AST (SGOT) 25 U/L (5-34); Albumin 2.9 g/dL (3.4-4.8); Alkaline Phosphatase 74 U/L (40-110); Anion Gap 13 mmol/L (10-20); BUN (Urea Nitrogen) 41 mg/dL (9.8-20.1); Bilirubin, Total 0.2 mg/dL (0.2-1.2); Calc. Creatinine Clearance 19 mL/min (70-130); Calcium 8.1 mg/dL (7.8-10.44); Carbon Dioxide 29 mmol/L (23-31); Chloride 100 mmol/L (98-107); Globulin 3.4 g/dL (2.4-3.5); Potassium 3.8 mmol/L (3.5-5.1); Protein, Total 6.3 g/dL (5.8-8.1); Sodium 138 mmol/L (136-145)
[2022-01-05 05:17] LABS: Glucose 43 mg/dL (80-115)
[2022-01-05] MEDS ORDERED: cefTRIAXone\\ROCEPHIN 1 GM in Sodium Chloride 0.9% 100 ML IVPB SCH (08:15)
[2022-01-05] MEDS: Gabapentin 300 MG CAP PO SCH ×2 (09:54→20:48)
[2022-01-05] MEDS: Cholecalciferol 1,000 UNITS (25 MCG) TAB PO SCH (09:55)
[2022-01-05] MEDS: Amlodipine 5 MG TAB PO SCH (09:55)
[2022-01-05] MEDS: Aspirin 325 MG TAB PO SCH (09:55)
[2022-01-05] MEDS: Carvedilol 25 MG TAB PO SCH ×2 (09:55→20:48)
[2022-01-05] MEDS: Amoxicillin/Potassium Clav 250 MG TAB PO SCH ×2 (09:55→20:47)
[2022-01-05] MEDS: Ascorbic Acid 500 mg Chewable Tablet PO SCH (09:55)
[2022-01-05] MEDS: Furosemide 40 MG TAB PO SCH ×2 (09:55→13:19)
[2022-01-05] MEDS: cloNIDine 0.2 MG TAB PO SCH ×2 (09:56→20:47)
[2022-01-05] MEDS: hydrALAZINE 25 MG TAB PO SCH ×3 (09:56→20:46)
[2022-01-05] MEDS: Clopidogrel Bisulfate 75 MG TAB PO SCH (09:56)
[2022-01-05] MEDS: Insulin Glargine 30 UNITS/0.3 ML VIAL SC SCH ×2 (09:57→20:49)
[2022-01-05] MEDS ORDERED: Amlodipine 5 MG TAB PO SCH (15:16)
[2022-01-05] MEDS: HumaLOG 300 UNITS/3 ML VIAL SC PRN (17:02)
[2022-01-05 17:53] LABS: Bilirubin Negative (Negative); Blood, Urine Negative (Negative); Clarity Clear (Clear); Glucose, Urine (Dipstick) 50 mg/dL (Negative); Ketone, Urine Negative (Negative); Leukocyte Negative Leu/uL (Negative); Nitrite Negative (Negative); Protein, Urine (Dipstick) 50 mg/dL (Neg-Trace); RBC/HPF 0-3 HPF (0-3); Specific Gravity, Urine 1.013 (1.002-1.036); Urobilinogen Normal mg/dL (Less than 2); WBC/HPF 0-3 HPF (0-3)
[2022-01-05 17:54] LABS: Bacteria/HPF 1+ HPF (None Seen)
[2022-01-05 17:55] LABS: Urine Culture Reflex No No
[2022-01-05] MEDS ORDERED: Sterile Water 10 ML VIAL IVP PRN (19:57)
[2022-01-05] MEDS ORDERED: Activase 2 MG VIAL CATH SCH (20:00)
[2022-01-05] MEDS: Atorvastatin Calcium 20 MG TAB PO SCH (20:48)
[2022-01-06 04:58] LABS: #Eosinphils 0.3 thou/uL (0.0-0.7); #Monocytes 0.5 thou/uL (0.11-0.59); #Neutrophils 7.9 thou/uL (1.40-6.50); %Basophils 0.4 % (0.0-1.0); %Eosinophils 2.7 % (0.0-10.0); %Lymphocytes 10.1 % (21.0-51.0); %Monocytes 5.5 % (0.0-10.0); %Neutrophils 81.3 % (42.0-75.0); Hemoglobin 11.3 g/dL (12.0-16.0); Mean Corpuscular Hemoglobin 29.6 pg (27.0-31.0); Mean Corpuscular Volume 95.5 fL (78.0-98.0); Mean Platelet Volume 7.9 fL (7.4-10.4); Platelet Count 288 thou/uL (130-400); RBC Distribution Width 12.4 % (11.5-14.5); White Blood Cell (WBC) Count 9.7 thou/uL (4.8-10.8)
[2022-01-06 05:19] LABS: ALT (SGPT) Less than 7 U/L (8-55); AST (SGOT) 18 U/L (5-34); Albumin 2.8 g/dL (3.4-4.8); Alkaline Phosphatase 70 U/L (40-110); Anion Gap 15 mmol/L (10-20); BUN (Urea Nitrogen) 45 mg/dL (9.8-20.1); Bilirubin, Total 0.2 mg/dL (0.2-1.2); Calc. Creatinine Clearance 18 mL/min (70-130); Carbon Dioxide 29 mmol/L (23-31); Chloride 97 mmol/L (98-107); Globulin 3.4 g/dL (2.4-3.5); Glucose 91 mg/dL (80-115); Potassium 4.1 mmol/L (3.5-5.1); Protein, Total 6.2 g/dL (5.8-8.1); Sodium 137 mmol/L (136-145)
[2022-01-06] MEDS: Gabapentin 300 MG CAP PO SCH ×2 (09:34→21:29)
[2022-01-06] MEDS: Insulin Glargine 30 UNITS/0.3 ML VIAL SC SCH (09:34)
[2022-01-06] MEDS: cloNIDine 0.2 MG TAB PO SCH ×2 (09:34→21:29)
[2022-01-06] MEDS: Amoxicillin/Potassium Clav 250 MG TAB PO SCH ×2 (09:35→21:30)
[2022-01-06] MEDS: Aspirin 325 MG TAB PO SCH (09:35)
[2022-01-06] MEDS: Ascorbic Acid 500 mg Chewable Tablet PO SCH (09:35)
[2022-01-06] MEDS: Cholecalciferol 1,000 UNITS (25 MCG) TAB PO SCH (09:36)
[2022-01-06] MEDS: hydrALAZINE 25 MG TAB PO SCH ×3 (09:36→21:28)
[2022-01-06] MEDS: Clopidogrel Bisulfate 75 MG TAB PO SCH (09:36)
[2022-01-06] MEDS: Furosemide 40 MG TAB PO SCH ×2 (09:36→14:02)
[2022-01-06] MEDS: Amlodipine 10 MG TAB PO SCH (09:36)
[2022-01-06] MEDS: Carvedilol 25 MG TAB PO SCH ×2 (09:37→21:30)
[2022-01-06] MEDS ORDERED: Vancomycin HCl 1.25 GM in Sodium Chloride 0.9% 250 ML 250 ML IVPB SCH (13:15)
[2022-01-06] MEDS ORDERED: Vancomycin HCl 500 MG in Sodium Chloride 0.9% 100 ML IVPB SCH (13:15)
[2022-01-06] MEDS ORDERED: HOLD VANCOMYCIN FOR LEVEL >20 FS SCH (13:15)
[2022-01-06] MEDS ORDERED: Vancomycin HCl 750 MG in Sodium Chloride 0.9% 250 ML 250 ML IVPB SCH (13:15)
[2022-01-06] MEDS ORDERED: Vancomycin 1 GM in Premix Bag 1 BAG IVPB SCH (13:15)
[2022-01-06] MEDS ORDERED: Vancomycin HCl 1.75 GM in Sodium Chloride 0.9% 500 ML IVPB SCH (13:15)
[2022-01-06] MEDS: HumaLOG 300 UNITS/3 ML VIAL SC PRN (16:59)
[2022-01-06] MEDS: Atorvastatin Calcium 20 MG TAB PO SCH (21:30)
[2022-01-07 05:17] LABS: #Eosinphils 0.2 thou/uL (0.0-0.7); #Lymphocytes 1.2 thou/uL (1.20-3.40); #Monocytes 0.5 thou/uL (0.11-0.59); #Neutrophils 4.8 thou/uL (1.40-6.50); %Basophils 0.4 % (0.0-1.0); %Eosinophils 3.7 % (0.0-10.0); %Lymphocytes 17.4 % (21.0-51.0); %Monocytes 6.8 % (0.0-10.0); %Neutrophils 71.7 % (42.0-75.0); Hemoglobin 10.2 g/dL (12.0-16.0); Mean Corpuscular HGB CONC 31.1 g/dL (32.0-36.0); Mean Corpuscular Hemoglobin 29.4 pg (27.0-31.0); Mean Corpuscular Volume 94.5 fL (78.0-98.0); Platelet Count 214 thou/uL (130-400); RBC Distribution Width 12.4 % (11.5-14.5); Red Blood Cell (RBC) Count 3.47 mill/uL (4.20-5.40); White Blood Cell (WBC) Count 6.7 thou/uL (4.8-10.8)
[2022-01-07 05:28] LABS: ALT (SGPT) Less than 7 U/L (8-55); AST (SGOT) 21 U/L (5-34); Albumin 2.4 g/dL (3.4-4.8); Alkaline Phosphatase 60 U/L (40-110); Anion Gap 12 mmol/L (10-20); BUN (Urea Nitrogen) 43 mg/dL (9.8-20.1); Bilirubin, Total 0.2 mg/dL (0.2-1.2); Calc. Creatinine Clearance 19 mL/min (70-130); Calcium 7.5 mg/dL (7.8-10.44); Carbon Dioxide 25 mmol/L (23-31); Chloride 101 mmol/L (98-107); Potassium 4.1 mmol/L (3.5-5.1); Protein, Total 5.4 g/dL (5.8-8.1); Sodium 134 mmol/L (136-145)
[2022-01-07 05:30] LABS: Glucose 59 mg/dL (80-115)
[2022-01-07] MEDS ORDERED: HumaLOG 300 UNITS/3 ML VIAL SC PRN ×2 (07:54)
[2022-01-07] MEDS ORDERED: Insulin Glargine 30 UNITS/0.3 ML VIAL SC SCH (09:00)
[2022-01-07] MEDS: Aspirin 325 MG TAB PO SCH (09:18)
[2022-01-07] MEDS: Gabapentin 300 MG CAP PO SCH ×2 (09:18→21:05)
[2022-01-07] MEDS: Ascorbic Acid 500 mg Chewable Tablet PO SCH (09:18)
[2022-01-07] MEDS: Clopidogrel Bisulfate 75 MG TAB PO SCH (09:19)
[2022-01-07] MEDS: Cholecalciferol 1,000 UNITS (25 MCG) TAB PO SCH (09:19)
[2022-01-07] MEDS ORDERED: EPOETIN ALFA-EPBX (ESRD) 40,000 UNIT/ML VIAL SC SCH (12:00)
[2022-01-07] MEDS: Furosemide 40 MG TAB PO SCH ×2 (14:18→15:21)
[2022-01-07] MEDS: Carvedilol 25 MG TAB PO SCH ×2 (15:01→21:05)
[2022-01-07] MEDS: Amlodipine 10 MG TAB PO SCH (15:01)
[2022-01-07] MEDS: cloNIDine 0.2 MG TAB PO SCH ×2 (15:01→21:05)
[2022-01-07] MEDS: hydrALAZINE 25 MG TAB PO SCH ×3 (15:01→21:05)
[2022-01-07] MEDS: Atorvastatin Calcium 20 MG TAB PO SCH (21:07)
[2022-01-08] MEDS: HYDROcodone/Acetaminophen 7.5/325 mg Tablet PO PRN ×3 (02:56→20:08)
[2022-01-08 05:53] LABS: #Eosinphils 0.2 thou/uL (0.0-0.7); #Lymphocytes 1.2 thou/uL (1.20-3.40); #Monocytes 0.5 thou/uL (0.11-0.59); #Neutrophils 5.7 thou/uL (1.40-6.50); %Basophils 0.5 % (0.0-1.0); %Lymphocytes 15.3 % (21.0-51.0); %Monocytes 6.8 % (0.0-10.0); %Neutrophils 74.4 % (42.0-75.0); Hemoglobin 9.5 g/dL (12.0-16.0); Mean Corpuscular HGB CONC 30.8 g/dL (32.0-36.0); Mean Corpuscular Hemoglobin 29.1 pg (27.0-31.0); Mean Corpuscular Volume 94.6 fL (78.0-98.0); Mean Platelet Volume 7.8 fL (7.4-10.4); Platelet Count 261 thou/uL (130-400); RBC Distribution Width 12.5 % (11.5-14.5); Red Blood Cell (RBC) Count 3.27 mill/uL (4.20-5.40); White Blood Cell (WBC) Count 7.6 thou/uL (4.8-10.8)
[2022-01-08 06:10] LABS: ALT (SGPT) Less than 7 U/L (8-55); AST (SGOT) 16 U/L (5-34); Albumin 2.4 g/dL (3.4-4.8); Alkaline Phosphatase 65 U/L (40-110); Anion Gap 13 mmol/L (10-20); BUN (Urea Nitrogen) 30 mg/dL (9.8-20.1); Bilirubin, Total 0.2 mg/dL (0.2-1.2); Calc. Creatinine Clearance 25 mL/min (70-130); Calcium 7.6 mg/dL (7.8-10.44); Carbon Dioxide 26 mmol/L (23-31); Chloride 101 mmol/L (98-107); Globulin 2.8 g/dL (2.4-3.5); Glucose 132 mg/dL (80-115); Potassium 4.1 mmol/L (3.5-5.1); Protein, Total 5.2 g/dL (5.8-8.1); Sodium 136 mmol/L (136-145)
[2022-01-08] MEDS: Amlodipine 10 MG TAB PO SCH (09:40)
[2022-01-08] MEDS: Carvedilol 25 MG TAB PO SCH ×2 (09:41→20:09)
[2022-01-08] MEDS: Clopidogrel Bisulfate 75 MG TAB PO SCH (09:41)
[2022-01-08] MEDS: cloNIDine 0.2 MG TAB PO SCH ×2 (09:41→20:08)
[2022-01-08] MEDS: Ascorbic Acid 500 mg Chewable Tablet PO SCH (09:41)
[2022-01-08] MEDS: Aspirin 325 MG TAB PO SCH (09:41)
[2022-01-08] MEDS: Cholecalciferol 1,000 UNITS (25 MCG) TAB PO SCH (09:41)
[2022-01-08] MEDS: hydrALAZINE 25 MG TAB PO SCH ×3 (09:42→20:07)
[2022-01-08] MEDS: Furosemide 40 MG TAB PO SCH ×2 (09:42→13:15)
[2022-01-08] MEDS: Gabapentin 300 MG CAP PO SCH ×2 (09:42→20:08)
[2022-01-08 10:16] LABS: Vancomycin, Random 9.5 ug/mL (See Comment)
[2022-01-08] MEDS: Vancomycin 1 GM in Premix Bag 1 BAG IVPB SCH ×2 (14:34→17:31)
[2022-01-08] MEDS ORDERED: Ondansetron PF 4 MG/2 ML Vial IVP PRN (15:27)
[2022-01-08] MEDS ORDERED: Ondansetron ODT 4 MG TAB PO PRN (16:46)
[2022-01-08] MEDS: Morphine 4 MG/ML VIAL SLOW IVP PRN (17:37)
[2022-01-08] MEDS: Atorvastatin Calcium 20 MG TAB PO SCH (20:09)
[2022-01-09 06:04] LABS: ALT (SGPT) Less than 7 U/L (8-55); AST (SGOT) 19 U/L (5-34); Albumin 2.6 g/dL (3.4-4.8); Alkaline Phosphatase 70 U/L (40-110); Anion Gap 15 mmol/L (10-20); BUN (Urea Nitrogen) 24 mg/dL (9.8-20.1); Bilirubin, Total 0.2 mg/dL (0.2-1.2); Calc. Creatinine Clearance 30 mL/min (70-130); Carbon Dioxide 27 mmol/L (23-31); Chloride 101 mmol/L (98-107); Glucose 127 mg/dL (80-115); Potassium 4.1 mmol/L (3.5-5.1); Protein, Total 5.6 g/dL (5.8-8.1); Sodium 139 mmol/L (136-145)
[2022-01-09 06:06] LABS: #Eosinphils 0.2 thou/uL (0.0-0.7); #Lymphocytes 1.2 thou/uL (1.20-3.40); #Monocytes 0.5 thou/uL (0.11-0.59); #Neutrophils 5.7 thou/uL (1.40-6.50); %Basophils 0.3 % (0.0-1.0); %Eosinophils 2.8 % (0.0-10.0); %Monocytes 6.6 % (0.0-10.0); %Neutrophils 74.3 % (42.0-75.0); Hemoglobin 10.6 g/dL (12.0-16.0); Mean Corpuscular HGB CONC 31.7 g/dL (32.0-36.0); Mean Corpuscular Hemoglobin 29.7 pg (27.0-31.0); Mean Corpuscular Volume 93.7 fL (78.0-98.0); Mean Platelet Volume 7.8 fL (7.4-10.4); Platelet Count 274 thou/uL (130-400); RBC Distribution Width 12.4 % (11.5-14.5); Red Blood Cell (RBC) Count 3.56 mill/uL (4.20-5.40); White Blood Cell (WBC) Count 7.7 thou/uL (4.8-10.8)
[2022-01-09] MEDS: hydrALAZINE 25 MG TAB PO SCH ×3 (08:27→21:10)
[2022-01-09] MEDS: Carvedilol 25 MG TAB PO SCH ×2 (08:27→21:10)
[2022-01-09] MEDS: Ascorbic Acid 500 mg Chewable Tablet PO SCH (08:27)
[2022-01-09] MEDS: Clopidogrel Bisulfate 75 MG TAB PO SCH (08:28)
[2022-01-09] MEDS: Amlodipine 10 MG TAB PO SCH (08:28)
[2022-01-09] MEDS: cloNIDine 0.2 MG TAB PO SCH ×2 (08:29→21:09)
[2022-01-09] MEDS: Cholecalciferol 1,000 UNITS (25 MCG) TAB PO SCH (08:29)
[2022-01-09] MEDS: Furosemide 40 MG TAB PO SCH ×2 (08:29→17:02)
[2022-01-09] MEDS: Aspirin 325 MG TAB PO SCH (08:29)
[2022-01-09] MEDS: Gabapentin 300 MG CAP PO SCH ×2 (08:29→21:10)
[2022-01-09] MEDS: Atorvastatin Calcium 20 MG TAB PO SCH (21:10)
[2022-01-10 05:29] LABS: #Basophils 0.1 thou/uL (0.0-0.2); #Eosinphils 0.3 thou/uL (0.0-0.7); #Lymphocytes 1.5 thou/uL (1.20-3.40); #Monocytes 0.5 thou/uL (0.11-0.59); #Neutrophils 4.3 thou/uL (1.40-6.50); %Basophils 0.9 % (0.0-1.0); %Eosinophils 4.6 % (0.0-10.0); %Lymphocytes 22.8 % (21.0-51.0); %Monocytes 7.8 % (0.0-10.0); %Neutrophils 63.9 % (42.0-75.0); Hemoglobin 9.9 g/dL (12.0-16.0); Mean Corpuscular HGB CONC 31.6 g/dL (32.0-36.0); Mean Corpuscular Hemoglobin 29.5 pg (27.0-31.0); Mean Corpuscular Volume 93.5 fL (78.0-98.0); Mean Platelet Volume 7.8 fL (7.4-10.4); Platelet Count 256 thou/uL (130-400); RBC Distribution Width 12.3 % (11.5-14.5); Red Blood Cell (RBC) Count 3.35 mill/uL (4.20-5.40); White Blood Cell (WBC) Count 6.8 thou/uL (4.8-10.8)
[2022-01-10 05:52] LABS: ALT (SGPT) 10 U/L (8-55); AST (SGOT) 24 U/L (5-34); Albumin 2.6 g/dL (3.4-4.8); Alkaline Phosphatase 62 U/L (40-110); Anion Gap 12 mmol/L (10-20); BUN (Urea Nitrogen) 37 mg/dL (9.8-20.1); Bilirubin, Total 0.2 mg/dL (0.2-1.2); Calc. Creatinine Clearance 23 mL/min (70-130); Calcium 7.7 mg/dL (7.8-10.44); Carbon Dioxide 30 mmol/L (23-31); Chloride 100 mmol/L (98-107); Globulin 2.9 g/dL (2.4-3.5); Glucose 150 mg/dL (80-115); Potassium 4.3 mmol/L (3.5-5.1); Protein, Total 5.5 g/dL (5.8-8.1); Sodium 138 mmol/L (136-145)
[2022-01-10] MEDS ORDERED: HYDROcodone/Acetaminophen 5/325 mg Tablet PO PRN (08:45)
[2022-01-10 08:59] VITALS: TEMP 98.2
[2022-01-10 11:47] LABS: SARS-CoV-2 PCR by NAA Not Detected (NotDetected)
[2022-01-10 12:22] LABS: Vancomycin, Random 11.3 ug/mL (See Comment)
[2022-01-10] MEDS: hydrALAZINE 25 MG TAB PO SCH ×2 (12:25→14:36)
[2022-01-10] MEDS: Cholecalciferol 1,000 UNITS (25 MCG) TAB PO SCH (12:26)
[2022-01-10] MEDS: Clopidogrel Bisulfate 75 MG TAB PO SCH (12:26)
[2022-01-10] MEDS: Amlodipine 10 MG TAB PO SCH (12:26)
[2022-01-10] MEDS: Ascorbic Acid 500 mg Chewable Tablet PO SCH (12:26)
[2022-01-10] MEDS: Furosemide 40 MG TAB PO SCH ×2 (12:27→14:36)
[2022-01-10] MEDS: cloNIDine 0.2 MG TAB PO SCH (12:27)
[2022-01-10] MEDS: Gabapentin 300 MG CAP PO SCH (12:27)
[2022-01-10] MEDS: Carvedilol 25 MG TAB PO SCH (12:27)
[2022-01-10] MEDS: Aspirin 325 MG TAB PO SCH (12:27)
[2022-01-10 14:53] VITALS: BP 122/58
[2022-01-10] MEDS ORDERED: Vancomycin HCl 750 MG in Sodium Chloride 0.9% 250 ML 250 ML IVPB SCH (15:30)
== END 2022-01-10 16:19 | disposition home or self-care (01) | DRG 907 ==
LOC: ERS 10:37 → MSONC 15:24
PROVIDERS: ADMIT Family Medicine; ATTEND Family Medicine
PROC: 3E1M39Z Irrigation of Peritoneal Cavity using Dialysate, Percutaneous Approach (ICD-10-PCS; 2022-01-03)
PROC: 0DJW4ZZ Inspection of Peritoneum, Percutaneous Endoscopic Approach (ICD-10-PCS; principal; 2022-01-04)
DX: T85.611A Breakdown (mechanical) of intraperitoneal dialysis catheter, initial encounter (principal); K65.2 Spontaneous bacterial peritonitis; N18.6 End stage renal disease; I13.2 Hypertensive heart and chronic kidney disease with heart failure and with stage 5 chronic kidney disease, or end stage renal disease; I50.30 Unspecified diastolic (congestive) heart failure; N39.0 Urinary tract infection, site not specified; G93.49 Other encephalopathy; N18.9 Chronic kidney disease, unspecified; E11.22 Type 2 diabetes mellitus with diabetic chronic kidney disease; E78.00 Pure hypercholesterolemia, unspecified; E11.51 Type 2 diabetes mellitus with diabetic peripheral angiopathy without gangrene; E78.5 Hyperlipidemia, unspecified; Y83.8 Other surgical procedures as the cause of abnormal reaction of the patient, or of later complication, without mention of misadventure at the time of the procedure; E11.42 Type 2 diabetes mellitus with diabetic polyneuropathy; D63.1 Anemia in chronic kidney disease; J44.9 Chronic obstructive pulmonary disease, unspecified; F32.A Depression, unspecified; Z20.822 Contact with and (suspected) exposure to COVID-19; F41.1 Generalized anxiety disorder; F19.90 Other psychoactive substance use, unspecified, uncomplicated; Z66 Do not resuscitate; I08.1 Rheumatic disorders of both mitral and tricuspid valves; R33.9 Retention of urine, unspecified; Z98.890 Other specified postprocedural states; Z86.73 Personal history of transient ischemic attack (TIA), and cerebral infarction without residual deficits; I25.2 Old myocardial infarction; Z89.512 Acquired absence of left leg below knee; Z95.810 Presence of automatic (implantable) cardiac defibrillator; Z95.1 Presence of aortocoronary bypass graft; Z95.5 Presence of coronary angioplasty implant and graft; Z79.82 Long term (current) use of aspirin; Z79.899 Other long term (current) drug therapy; Z79.4 Long term (current) use of insulin; Z86.74 Personal history of sudden cardiac arrest; K66.0 Peritoneal adhesions (postprocedural) (postinfection); N32.89 Other specified disorders of bladder
CPT/HCPCS: 36415; 36416; 71045; 74176; 80053; 80061; 80202; 81001; 81003; 81015; 82140; 82553; 83036; 83690; 83880; 84484; 85025; 86706; 87070; 87086; 87205; 87340; 90935; 90945; 93005; 93010; 93306; 96374; G0257; J0690; J1644; J1815; J2250; J2270; J2405; J2704; J2765; J3010; J3370; J3490; J7030; Q5105; S0020; S0028; U0003; U0005

== ENCOUNTER 2022-02-15 07:47 | Day surgery (SDC) | payer MEDICARE ==
[2022-02-14 14:02] VITALS: BMI 33.3
[2022-02-15 11:16] VITALS: BP 122/53; TEMP 98
== END 2022-02-15 10:50 | disposition home or self-care (01) ==
LOC: SPEC 07:47
PROVIDERS: ATTEND Surgery
PROC: B51W1ZZ Fluoroscopy of Dialysis Shunt/Fistula using Low Osmolar Contrast (ICD-10-PCS; principal; 2022-02-15)
DX: T82.898A Other specified complication of vascular prosthetic devices, implants and grafts, initial encounter (principal); I12.0 Hypertensive chronic kidney disease with stage 5 chronic kidney disease or end stage renal disease; E11.22 Type 2 diabetes mellitus with diabetic chronic kidney disease; N18.6 End stage renal disease; I25.10 Atherosclerotic heart disease of native coronary artery without angina pectoris; I25.2 Old myocardial infarction; E78.5 Hyperlipidemia, unspecified; Z86.73 Personal history of transient ischemic attack (TIA), and cerebral infarction without residual deficits; Z79.02 Long term (current) use of antithrombotics/antiplatelets; Z79.4 Long term (current) use of insulin; Z79.82 Long term (current) use of aspirin; Z79.899 Other long term (current) drug therapy; Z95.1 Presence of aortocoronary bypass graft; Z95.810 Presence of automatic (implantable) cardiac defibrillator; Z89.512 Acquired absence of left leg below knee; Z99.2 Dependence on renal dialysis; Y81.1 Therapeutic (nonsurgical) and rehabilitative general- and plastic-surgery devices associated with adverse incidents
CPT/HCPCS: 36901; 75820; 76937

== ENCOUNTER 2022-05-02 21:34 | Emergency (ER) | payer MEDICARE | END 2022-05-02 22:44 | disposition home or self-care (01) | LOC: ERS 21:34 | DX: T82.49XA Other complication of vascular dialysis catheter, initial encounter (principal); E11.22 Type 2 diabetes mellitus with diabetic chronic kidney disease; I13.2 Hypertensive heart and chronic kidney disease with heart failure and with stage 5 chronic kidney disease, or end stage renal disease; N18.6 End stage renal disease; E11.51 Type 2 diabetes mellitus with diabetic peripheral angiopathy without gangrene; J44.9 Chronic obstructive pulmonary disease, unspecified; Z86.73 Personal history of transient ischemic attack (TIA), and cerebral infarction without residual deficits; Z99.2 Dependence on renal dialysis; I25.2 Old myocardial infarction; E78.00 Pure hypercholesterolemia, unspecified; Z87.891 Personal history of nicotine dependence | CPT/HCPCS: 99283 ==

== ENCOUNTER 2022-05-04 11:50 | Outpatient (CLI) | payer MEDICARE ==
[2022-05-04 12:36] LABS: #Basophils 0.1 10x3/uL (0.0-0.2); #Eosinphils 0.2 10x3/uL (0.0-0.5); #Monocytes 0.5 10x3/uL (0.0-1.1); #Neutrophils 6.4 10x3/uL (1.5-8.4); %Basophils 0.8 % (0.0-2.0); %Eosinophils 2.1 % (0.0-6.0); %Lymphocytes 13.9 % (18.0-47.0); %Monocytes 5.6 % (0.0-10.0); %Neutrophils 77.4 % (40.0-75.0); Hemoglobin 11.4 g/dL (12.0-15.5); Mean Corpuscular HGB CONC 31.6 g/dL (32.0-36.0); Mean Corpuscular Hemoglobin 28.2 pg (27.0-33.0); Mean Corpuscular Volume 89.4 fl (81.6-98.3); Mean Platelet Volume 10.7 fl (7.4-10.4); Platelet Count 245 10x3/uL (150-450); RBC Distribution Width 13.8 % (11.5-14.5); Red Blood Cell (RBC) Count 4.04 10x6/uL (3.90-5.03); White Blood Cell (WBC) Count 8.3 10x3/uL (3.5-10.5)
[2022-05-04 12:52] LABS: Anion Gap 17 mmol/L (10-20); BUN (Urea Nitrogen) 34 mg/dL (9.8-20.1); Calc. Creatinine Clearance 0 mL/min (70-130); Calcium 8.3 mg/dL (7.8-10.44); Carbon Dioxide 27 mmol/L (23-31); Chloride 97 mmol/L (98-107); Estimated GFR 10; Glucose 259 mg/dL (80-115); Potassium 4.2 mmol/L (3.5-5.1); Sodium 137 mmol/L (136-145)
== END 2022-05-04 11:51 | disposition home or self-care (01) ==
LOC: LABBT 11:50
PROVIDERS: ATTEND Surgery
DX: Z01.818 Encounter for other preprocedural examination (principal); N18.6 End stage renal disease; Z20.822 Contact with and (suspected) exposure to COVID-19
CPT/HCPCS: 80048; 85025; 87811; 93005; 93010

== ENCOUNTER 2022-05-05 07:04 | Day surgery (SDC) | payer MEDICARE ==
[2022-05-04 10:35] VITALS: BMI 32.4
[2022-05-05] MEDS ORDERED: Ondansetron PF 4 MG/2 ML Vial ONE ×2 (08:25→10:33)
[2022-05-05 08:27] LABS: Anion Gap 16 mmol/L (10-20); BUN (Urea Nitrogen) 34 mg/dL (9.8-20.1); Calc. Creatinine Clearance 17 mL/min (70-130); Calcium 8.3 mg/dL (7.8-10.44); Carbon Dioxide 25 mmol/L (23-31); Chloride 100 mmol/L (98-107); Estimated GFR 10; Glucose 177 mg/dL (80-115); Sodium 137 mmol/L (136-145)
[2022-05-05] MEDS ORDERED: Bupivacaine/Epinephrine 0.25% 30 ML VIAL ONE (10:05)
[2022-05-05] MEDS ORDERED: Lidocaine 2% PF 5 ML VIAL ONE (10:05)
[2022-05-05] MEDS ORDERED: Heparin 5,000 UNITS/ML VIAL ONE (10:05)
[2022-05-05] MEDS ORDERED: Protamine Sulfate 50 MG/5 ML VIAL ONE (10:05)
[2022-05-05] MEDS ORDERED: Heparin 10,000 UNITS/ 10 ML VIAL ONE (10:07)
[2022-05-05] MEDS ORDERED: Midazolam HCl 2 mg/2 ml Vial ONE (10:15)
[2022-05-05] MEDS ORDERED: fentaNYL Citrate/PF 100 MCG/2 ML SYRINGE ONE (10:15)
[2022-05-05] MEDS ORDERED: CEFAZOLIN 2 GM VIAL ONE (10:26)
[2022-05-05] MEDS ORDERED: Sodium Chloride 0.9% 100 ML ONE (10:26)
[2022-05-05] MEDS ORDERED: SUGAMMADEX SODIUM 200 MG/2 ML VIAL ONE (10:27)
[2022-05-05] MEDS ORDERED: Lidocaine 1% PF 5 ML VIAL ONE (10:33)
[2022-05-05] MEDS ORDERED: Rocuronium Bromide 10 MG/ML (10ML VIAL) ONE (10:33)
[2022-05-05] MEDS ORDERED: PROPOFOL 200 MG/20 ML VIAL ONE (10:33)
[2022-05-05] MEDS ORDERED: Neostigmine Methylsulfate 3 MG/3 ML SYRINGE ONE (10:33)
[2022-05-05] MEDS ORDERED: Glycopyrrolate 0.2 MG/ML 5 ML SYRINGE ONE (10:33)
[2022-05-05] MEDS ORDERED: Dexamethasone 20 MG/5 ML VIAL ONE (10:33)
== END 2022-05-05 14:30 | disposition home or self-care (01) ==
LOC: SDC 07:04
PROVIDERS: ATTEND Surgery
PROC: 05LY0ZZ Occlusion of Upper Vein, Open Approach (ICD-10-PCS; principal; 2022-05-05)
PROC: 02HV33Z Insertion of Infusion Device into Superior Vena Cava, Percutaneous Approach (ICD-10-PCS; 2022-05-05)
DX: I13.2 Hypertensive heart and chronic kidney disease with heart failure and with stage 5 chronic kidney disease, or end stage renal disease (principal); E11.22 Type 2 diabetes mellitus with diabetic chronic kidney disease; N18.6 End stage renal disease; I50.30 Unspecified diastolic (congestive) heart failure; I25.10 Atherosclerotic heart disease of native coronary artery without angina pectoris; E78.00 Pure hypercholesterolemia, unspecified; Z79.02 Long term (current) use of antithrombotics/antiplatelets; Z79.899 Other long term (current) drug therapy; Z99.2 Dependence on renal dialysis
CPT/HCPCS: 36558; 37607; 71045; 80048; 82962; C1752; C1776; 36416; J0690; J1100; J1644; J2001; J2250; J2405; J2704; J2720; J3490

== ENCOUNTER 2022-05-13 07:25 | Inpatient (IN) | payer MEDICARE ==
[2022-05-13] MEDS ORDERED: Metoprolol Tartrate 5 MG/5 ML VIAL ONE (07:48)
[2022-05-13] MEDS ORDERED: Nitroglycerin 2% Ointment 1 INCH/1 GM Packet ONE (07:48)
[2022-05-13] MEDS ORDERED: Ondansetron PF 4 MG/2 ML Vial ONE (07:48)
[2022-05-13] MEDS ORDERED: methylPREDNISolone Sod Succ/PF 125 MG/2 ML VIAL ONE (07:48)
[2022-05-13 07:49] LABS: #Basophils 0.1 thou/uL (0.0-0.2); #Eosinphils 0.1 thou/uL (0.0-0.7); #Monocytes 0.6 thou/uL (0.11-0.59); #Neutrophils 12.9 thou/uL (1.40-6.50); %Basophils 0.5 % (0.0-1.0); %Eosinophils 0.8 % (0.0-10.0); %Lymphocytes 6.6 % (21.0-51.0); %Neutrophils 88.1 % (42.0-75.0); Hemoglobin 12.7 g/dL (12.0-16.0); Mean Corpuscular HGB CONC 31.5 g/dL (32.0-36.0); Mean Corpuscular Hemoglobin 29.5 pg (27.0-31.0); Mean Corpuscular Volume 93.7 fL (78.0-98.0); Mean Platelet Volume 8.7 fL (7.4-10.4); Platelet Count 250 thou/uL (130-400); RBC Distribution Width 13.5 % (11.5-14.5); Red Blood Cell (RBC) Count 4.29 mill/uL (4.20-5.40); White Blood Cell (WBC) Count 14.6 thou/uL (4.8-10.8)
[2022-05-13 08:10] LABS: ALT (SGPT) 7 U/L (8-55); AST (SGOT) 17 U/L (5-34); Alkaline Phosphatase 82 U/L (40-110); Anion Gap 19 mmol/L (10-20); BUN (Urea Nitrogen) 37 mg/dL (9.8-20.1); Bilirubin, Total 0.3 mg/dL (0.2-1.2); Calc. Creatinine Clearance 0 mL/min (70-130); Carbon Dioxide 28 mmol/L (23-31); Chloride 99 mmol/L (98-107); Estimated GFR 11; Globulin 3.6 g/dL (2.4-3.5); Glucose 249 mg/dL (80-115); Potassium 4.2 mmol/L (3.5-5.1); Protein, Total 7.6 g/dL (5.8-8.1); Sodium 142 mmol/L (136-145)
[2022-05-13 08:32] LABS: CKMB 1.8 ng/mL (0-6.6)
[2022-05-13] MEDS ORDERED: Heparin 10,000 UNITS/ 10 ML VIAL ONE (08:57)
[2022-05-13] MEDS ORDERED: Dextrose 50% Abboject 50 ML SYRINGE SLOW IVP PRN (10:41)
[2022-05-13] MEDS ORDERED: Nitroglycerin 0.4 MG TAB (25 Tab Bottle) SL PRN (10:41)
[2022-05-13] MEDS ORDERED: Dextrose 5% in Water 1,000 ML IV PRN (10:41)
[2022-05-13] MEDS ORDERED: Ondansetron ODT 4 MG TAB PO PRN (10:41)
[2022-05-13] MEDS ORDERED: Insulin Regular 300 UNITS/3 ML VIAL SC PRN (10:41)
[2022-05-13] MEDS ORDERED: Acetaminophen 650 MG Suppository PR PRN (10:41)
[2022-05-13 10:47] LABS: Troponin I 0.162 ng/mL (< 0.028)
[2022-05-13 11:15] LABS: Hemoglobin A1c 6.8 % (4.0-6.0)
[2022-05-13] MEDS ORDERED: Aspirin 325 MG TAB PO SCH (11:30)
[2022-05-13] MEDS ORDERED: hydrALAZINE 20 MG/ML VIAL SLOW IVP PRN (11:49)
[2022-05-13] MEDS: Heparin 5,000 UNITS/ML VIAL SC SCH ×2 (14:18→20:36)
[2022-05-13 14:19] VITALS: BMI 31.2
[2022-05-13 14:38] LABS: Troponin I 0.375 ng/mL (< 0.028)
[2022-05-13 15:00] LABS: SARS-CoV-2 NAA Rapid Test Not Detected (NotDetected)
[2022-05-13] MEDS: hydrALAZINE 25 MG TAB PO SCH ×2 (15:37→20:35)
[2022-05-13] MEDS: Carvedilol 25 MG TAB PO SCH (15:37)
[2022-05-13] MEDS: Famotidine 20 MG TAB PO SCH (20:35)
[2022-05-13] MEDS: cloNIDine 0.2 MG TAB PO SCH (20:35)
[2022-05-13] MEDS: Atorvastatin Calcium 20 MG TAB PO SCH (20:36)
[2022-05-14 05:02] LABS: #Lymphocytes 1.2 thou/uL (1.20-3.40); #Monocytes 0.8 thou/uL (0.11-0.59); #Neutrophils 11.2 thou/uL (1.40-6.50); %Basophils 0.2 % (0.0-1.0); %Eosinophils 0.4 % (0.0-10.0); %Monocytes 6.1 % (0.0-10.0); %Neutrophils 84.4 % (42.0-75.0); Hemoglobin 11.8 g/dL (12.0-16.0); Mean Corpuscular Hemoglobin 29.6 pg (27.0-31.0); Mean Corpuscular Volume 92.4 fL (78.0-98.0); Mean Platelet Volume 8.6 fL (7.4-10.4); Platelet Count 218 thou/uL (130-400); RBC Distribution Width 13.3 % (11.5-14.5); Red Blood Cell (RBC) Count 3.98 mill/uL (4.20-5.40); White Blood Cell (WBC) Count 13.3 thou/uL (4.8-10.8)
[2022-05-14 05:26] LABS: ALT (SGPT) Less than 7 U/L (8-55); AST (SGOT) 13 U/L (5-34); Albumin 3.6 g/dL (3.4-4.8); Alkaline Phosphatase 70 U/L (40-110); Anion Gap 14 mmol/L (10-20); BUN (Urea Nitrogen) 20 mg/dL (9.8-20.1); Bilirubin, Total 0.3 mg/dL (0.2-1.2); Calc. Creatinine Clearance 26 mL/min (70-130); Calcium 8.7 mg/dL (7.8-10.44); Carbon Dioxide 28 mmol/L (23-31); Cardiac Risk 3.3 (Less than 4.5); Chloride 100 mmol/L (98-107); Cholesterol 183 mg/dl (< 200 Desired); Estimated GFR 18; Globulin 3.2 g/dL (2.4-3.5); Glucose 187 mg/dL (80-115); HDL Cholesterol 56 mg/dL (>60 Neg Risk); LDL Cholesterol, Calculated 110 mg/dL; Potassium 4.1 mmol/L (3.5-5.1); Protein, Total 6.8 g/dL (5.8-8.1); Sodium 138 mmol/L (136-145); Triglycerides 86 mg/dL (Less than 150)
[2022-05-14] MEDS: Clopidogrel Bisulfate 75 MG TAB PO SCH (09:10)
[2022-05-14] MEDS: Carvedilol 25 MG TAB PO SCH ×2 (09:10→16:35)
[2022-05-14] MEDS: cloNIDine 0.2 MG TAB PO SCH ×2 (09:10→20:51)
[2022-05-14] MEDS: Ascorbic Acid 500 mg Chewable Tablet PO SCH (09:10)
[2022-05-14] MEDS: Aspirin 81 mg Enteric Coated Tablet PO SCH (09:10)
[2022-05-14] MEDS: Cholecalciferol 1,000 UNITS (25 MCG) TAB PO SCH (09:11)
[2022-05-14] MEDS: Amlodipine 10 MG TAB PO SCH (09:11)
[2022-05-14] MEDS: hydrALAZINE 25 MG TAB PO SCH ×3 (09:11→20:51)
[2022-05-14] MEDS: Heparin 5,000 UNITS/ML VIAL SC SCH ×3 (09:12→20:56)
[2022-05-14] MEDS: Famotidine 20 MG TAB PO SCH (20:51)
[2022-05-14] MEDS: Atorvastatin Calcium 20 MG TAB PO SCH (20:52)
[2022-05-14] MEDS ORDERED: Gabapentin 300 MG CAP PO SCH (21:30)
[2022-05-15 04:53] LABS: #Basophils 0.1 thou/uL (0.0-0.2); #Eosinphils 0.2 thou/uL (0.0-0.7); #Lymphocytes 2.4 thou/uL (1.20-3.40); #Monocytes 0.5 thou/uL (0.11-0.59); #Neutrophils 5.5 thou/uL (1.40-6.50); %Eosinophils 1.9 % (0.0-10.0); %Lymphocytes 27.9 % (21.0-51.0); %Monocytes 5.8 % (0.0-10.0); %Neutrophils 63.5 % (42.0-75.0); Hemoglobin 11.6 g/dL (12.0-16.0); Mean Corpuscular HGB CONC 32.1 g/dL (32.0-36.0); Mean Corpuscular Volume 93.3 fL (78.0-98.0); Mean Platelet Volume 8.7 fL (7.4-10.4); Platelet Count 224 thou/uL (130-400); RBC Distribution Width 13.1 % (11.5-14.5); Red Blood Cell (RBC) Count 3.87 mill/uL (4.20-5.40); White Blood Cell (WBC) Count 8.6 thou/uL (4.8-10.8)
[2022-05-15 05:13] LABS: ALT (SGPT) 9 U/L (8-55); AST (SGOT) 17 U/L (5-34); Albumin 3.4 g/dL (3.4-4.8); Alkaline Phosphatase 63 U/L (40-110); Anion Gap 14 mmol/L (10-20); BUN (Urea Nitrogen) 40 mg/dL (9.8-20.1); Bilirubin, Total 0.4 mg/dL (0.2-1.2); Calc. Creatinine Clearance 19 mL/min (70-130); Calcium 8.6 mg/dL (7.8-10.44); Carbon Dioxide 28 mmol/L (23-31); Chloride 100 mmol/L (98-107); Estimated GFR 13; Globulin 3.1 g/dL (2.4-3.5); Glucose 139 mg/dL (80-115); Potassium 4.1 mmol/L (3.5-5.1); Protein, Total 6.5 g/dL (5.8-8.1); Sodium 138 mmol/L (136-145)
[2022-05-15] MEDS: Aspirin 81 mg Enteric Coated Tablet PO SCH (08:32)
[2022-05-15] MEDS: Ascorbic Acid 500 mg Chewable Tablet PO SCH (08:32)
[2022-05-15] MEDS: Clopidogrel Bisulfate 75 MG TAB PO SCH (08:33)
[2022-05-15] MEDS: hydrALAZINE 25 MG TAB PO SCH (08:33)
[2022-05-15] MEDS: Cholecalciferol 1,000 UNITS (25 MCG) TAB PO SCH (08:33)
[2022-05-15] MEDS: Carvedilol 25 MG TAB PO SCH (08:33)
[2022-05-15] MEDS: Amlodipine 10 MG TAB PO SCH (08:33)
[2022-05-15] MEDS: Heparin 5,000 UNITS/ML VIAL SC SCH (08:34)
[2022-05-15] MEDS: cloNIDine 0.2 MG TAB PO SCH (08:34)
[2022-05-15 09:06] VITALS: BP 168/84; TEMP 98
== END 2022-05-15 12:30 | disposition home or self-care (01) | DRG 189 ==
LOC: ERS 07:25 → ERHOLD 08:59 → 2SW 13:46 → OBSVTOIN 05-15 11:47
PROVIDERS: ADMIT Family Medicine; ATTEND Family Medicine
PROC: 5A1D70Z Performance of Urinary Filtration, Intermittent, Less than 6 Hours Per Day (ICD-10-PCS; principal; 2022-05-14)
DX: J96.21 Acute and chronic respiratory failure with hypoxia (principal); N18.6 End stage renal disease; I25.810 Atherosclerosis of coronary artery bypass graft(s) without angina pectoris; I50.32 Chronic diastolic (congestive) heart failure; I13.2 Hypertensive heart and chronic kidney disease with heart failure and with stage 5 chronic kidney disease, or end stage renal disease; I16.0 Hypertensive urgency; Z66 Do not resuscitate; Z20.822 Contact with and (suspected) exposure to COVID-19; E11.65 Type 2 diabetes mellitus with hyperglycemia; E78.5 Hyperlipidemia, unspecified; E11.22 Type 2 diabetes mellitus with diabetic chronic kidney disease; E11.51 Type 2 diabetes mellitus with diabetic peripheral angiopathy without gangrene; J44.9 Chronic obstructive pulmonary disease, unspecified; D63.1 Anemia in chronic kidney disease; F41.1 Generalized anxiety disorder; Z95.1 Presence of aortocoronary bypass graft; Z79.82 Long term (current) use of aspirin; Z79.899 Other long term (current) drug therapy; Z99.2 Dependence on renal dialysis
CPT/HCPCS: 36415; 36416; 71045; 80053; 80061; 82553; 83036; 83880; 84443; 84484; 85025; 90935; 93005; 94760; 96374; 96375; G0257; J0360; J1644; J2405; J2930; U0002

== ENCOUNTER 2023-04-17 15:14 | Inpatient (IN) | payer MEDICARE ==
[2023-04-17 15:40] LABS: #Eosinphils 0.1 thou/uL (0.0-0.7); #Monocytes 0.4 thou/uL (0.11-0.59); #Neutrophils 6.6 thou/uL (1.40-6.50); %Basophils 0.4 % (0.0-1.0); %Eosinophils 1.6 % (0.0-10.0); %Lymphocytes 12.3 % (21.0-51.0); %Monocytes 4.7 % (0.0-10.0); %Neutrophils 80.8 % (42.0-75.0); Hemoglobin 10.3 g/dL (12.0-16.0); Mean Corpuscular HGB CONC 32.6 g/dL (32.0-36.0); Mean Corpuscular Hemoglobin 31.4 pg (27.0-31.0); Mean Corpuscular Volume 96.3 fl (78.0-98.0); Mean Platelet Volume 10.8 fL (7.4-10.4); Platelet Count 186 10x3/uL (130-400); RBC Distribution Width 14.5 % (11.5-14.5); Red Blood Cell (RBC) Count 3.28 mill/uL (4.20-5.40); White Blood Cell (WBC) Count 8.1 10x3/uL (4.8-10.8)
[2023-04-17] MEDS ORDERED: Ondansetron PF 4 MG/2 ML Vial ONE (15:44)
[2023-04-17] MEDS ORDERED: Morphine 4 MG/ML VIAL ONE (15:44)
[2023-04-17 16:23] LABS: ALT (SGPT) 17 U/L (8-55); AST (SGOT) 17 U/L (5-34); Albumin 3.6 g/dL (3.4-4.8); Alkaline Phosphatase 53 U/L (40-110); Anion Gap 19 mmol/L (10-20); BUN (Urea Nitrogen) 29 mg/dL (9.8-20.1); Bilirubin, Total 0.6 mg/dL (0.2-1.2); Calc. Creatinine Clearance 0 mL/min (70-130); Calcium 8.6 mg/dL (7.8-10.44); Carbon Dioxide 27 mmol/L (23-31); Chloride 97 mmol/L (98-107); Estimated GFR 13; Globulin 2.7 g/dL (2.4-3.5); Glucose 157 mg/dL (80-115); Lipase 47 U/L (8-78); Magnesium 1.8 mg/dL (1.6-2.6); Potassium 3.8 mmol/L (3.5-5.1); Protein, Total 6.3 g/dL (5.8-8.1); Sodium 139 mmol/L (136-145)
[2023-04-17 16:44] LABS: CKMB 1.5 ng/mL (0-6.6)
[2023-04-17] MEDS ORDERED: Nitroglycerin 0.4 MG TAB (25 Tab Bottle) SL PRN (17:18)
[2023-04-17] MEDS ORDERED: Acetaminophen 500 MG TAB PO PRN (18:36)
[2023-04-17] MEDS ORDERED: Melatonin 3 MG TAB PO PRN (18:36)
[2023-04-17] MEDS ORDERED: Capsaicin 0.025% Cream 60 gm Tube TOP PRN (18:44)
[2023-04-17 19:03] LABS: Hemoglobin 10.6 g/dL (12.0-16.0); Platelet Count 181 10x3/uL (130-400)
[2023-04-17 19:10] LABS: Phosphorus 4.6 mg/dL (2.3-4.7)
[2023-04-17 19:17] LABS: Troponin I 0.078 ng/mL (< 0.028)
[2023-04-17] MEDS: hydrALAZINE 25 MG TAB PO SCH (19:56)
[2023-04-17] MEDS ORDERED: Heparin 5,000 UNITS/ML VIAL SC SCH (21:00)
[2023-04-17] MEDS: cloNIDine 0.2 MG TAB PO SCH (22:01)
[2023-04-17] MEDS: Atorvastatin Calcium 40 MG TAB PO SCH (22:01)
[2023-04-17] MEDS: Carvedilol 25 MG TAB PO SCH (22:02)
[2023-04-17] MEDS: Heparin 25,000 units/D5W 500 ML IVPB SCH (22:47)
[2023-04-17] MEDS: Heparin 10,000 UNITS/ 10 ML VIAL SLOW IVP SCH (22:48)
[2023-04-17 23:31] VITALS: BMI 29.9
[2023-04-18 05:52] LABS: #Eosinphils 0.2 thou/uL (0.0-0.7); #Monocytes 0.4 thou/uL (0.11-0.59); #Neutrophils 3.7 thou/uL (1.40-6.50); %Basophils 0.7 % (0.0-1.0); %Eosinophils 3.7 % (0.0-10.0); %Lymphocytes 23.5 % (21.0-51.0); %Monocytes 7.1 % (0.0-10.0); %Neutrophils 64.7 % (42.0-75.0); Hemoglobin 9.2 g/dL (12.0-16.0); Mean Corpuscular HGB CONC 31.2 g/dL (32.0-36.0); Mean Corpuscular Hemoglobin 31.6 pg (27.0-31.0); Mean Platelet Volume 10.4 fL (7.4-10.4); Platelet Count 150 10x3/uL (130-400); RBC Distribution Width 14.6 % (11.5-14.5); Red Blood Cell (RBC) Count 2.91 mill/uL (4.20-5.40); White Blood Cell (WBC) Count 5.8 10x3/uL (4.8-10.8)
[2023-04-18 06:21] LABS: ALT (SGPT) 14 U/L (8-55); AST (SGOT) 14 U/L (5-34); Albumin 3.3 g/dL (3.4-4.8); Alkaline Phosphatase 43 U/L (40-110); Anion Gap 16 mmol/L (10-20); BUN (Urea Nitrogen) 35 mg/dL (9.8-20.1); Bilirubin, Total 0.4 mg/dL (0.2-1.2); Calc. Creatinine Clearance 13 mL/min (70-130); Calcium 8.3 mg/dL (7.8-10.44); Carbon Dioxide 27 mmol/L (23-31); Chloride 97 mmol/L (98-107); Estimated GFR 8; Globulin 2.3 g/dL (2.4-3.5); Glucose 144 mg/dL (80-115); Potassium 4.1 mmol/L (3.5-5.1); Protein, Total 5.6 g/dL (5.8-8.1); Sodium 136 mmol/L (136-145)
[2023-04-18 06:35] LABS: Mean Corpuscular Volume 101.4 fl (78.0-98.0)
[2023-04-18] MEDS: Heparin 10,000 UNITS/ 10 ML VIAL SLOW IVP SCH ×2 (06:52→21:23)
[2023-04-18] MEDS ORDERED: EPOETIN ALFA-EPBX (ESRD) 10,000 UNITS/ML VIAL SC SCH (08:00)
[2023-04-18] MEDS: hydrALAZINE 25 MG TAB PO SCH ×3 (08:27→21:20)
[2023-04-18] MEDS: cloNIDine 0.2 MG TAB PO SCH ×2 (08:27→21:23)
[2023-04-18] MEDS: Carvedilol 25 MG TAB PO SCH ×2 (08:28→21:27)
[2023-04-18] MEDS: Losartan 25 MG TAB PO SCH (08:28)
[2023-04-18] MEDS: Sevelamer Carbonate 800 MG TAB PO SCH ×3 (08:28→16:04)
[2023-04-18] MEDS: NIFEdipine XL 60 MG TAB PO SCH (08:28)
[2023-04-18] MEDS: Gabapentin 300 MG CAP PO SCH (08:28)
[2023-04-18] MEDS: Cholecalciferol 1,000 UNITS (25 MCG) TAB PO SCH (08:35)
[2023-04-18] MEDS ORDERED: Aspirin Chewable 81 MG TAB PO SCH ×2 (09:00→10:30)
[2023-04-18] MEDS ORDERED: Epoetin (ESRD) 10,000 UNITS/ML VIAL SC SCH (12:00)
[2023-04-18] MEDS ORDERED: Communication Order-Pharmacy FS SCH (15:30)
[2023-04-18] MEDS ORDERED: Scopolamine 1.5 mg/72 hour Patch TD SCH (19:12)
[2023-04-18] MEDS: Atorvastatin Calcium 40 MG TAB PO SCH (21:23)
[2023-04-18] MEDS ORDERED: Ondansetron PF 4 MG/2 ML Vial IVP SCH (22:30)
[2023-04-19] MEDS: Heparin 25,000 units/D5W 500 ML IVPB SCH (01:03)
[2023-04-19 03:02] LABS: #Eosinphils 0.1 thou/uL (0.0-0.7); #Monocytes 0.5 thou/uL (0.11-0.59); #Neutrophils 4.8 thou/uL (1.40-6.50); %Basophils 0.6 % (0.0-1.0); %Eosinophils 1.6 % (0.0-10.0); %Lymphocytes 15.4 % (21.0-51.0); %Monocytes 7.2 % (0.0-10.0); %Neutrophils 74.9 % (42.0-75.0); Hemoglobin 9.5 g/dL (12.0-16.0); Mean Corpuscular HGB CONC 31.6 g/dL (32.0-36.0); Mean Corpuscular Hemoglobin 31.8 pg (27.0-31.0); Mean Corpuscular Volume 100.7 fl (78.0-98.0); Mean Platelet Volume 11.1 fL (7.4-10.4); Platelet Count 159 10x3/uL (130-400); RBC Distribution Width 14.6 % (11.5-14.5); Red Blood Cell (RBC) Count 2.99 mill/uL (4.20-5.40); White Blood Cell (WBC) Count 6.4 10x3/uL (4.8-10.8)
[2023-04-19 03:33] LABS: ALT (SGPT) 11 U/L (8-55); AST (SGOT) 13 U/L (5-34); Albumin 3.3 g/dL (3.4-4.8); Alkaline Phosphatase 43 U/L (40-110); Anion Gap 16 mmol/L (10-20); BUN (Urea Nitrogen) 30 mg/dL (9.8-20.1); Bilirubin, Total 0.3 mg/dL (0.2-1.2); Calc. Creatinine Clearance 14 mL/min (70-130); Calcium 8.2 mg/dL (7.8-10.44); Carbon Dioxide 30 mmol/L (23-31); Chloride 97 mmol/L (98-107); Estimated GFR 9; Globulin 2.3 g/dL (2.4-3.5); Glucose 168 mg/dL (80-115); Potassium 4.1 mmol/L (3.5-5.1); Protein, Total 5.6 g/dL (5.8-8.1); Sodium 139 mmol/L (136-145)
[2023-04-19] MEDS: Gabapentin 300 MG CAP PO SCH (05:37)
[2023-04-19] MEDS: Carvedilol 25 MG TAB PO SCH ×2 (05:37→20:33)
[2023-04-19] MEDS: Sevelamer Carbonate 800 MG TAB PO SCH ×3 (05:37→16:20)
[2023-04-19] MEDS: cloNIDine 0.2 MG TAB PO SCH ×2 (05:38→20:33)
[2023-04-19] MEDS: NIFEdipine XL 60 MG TAB PO SCH (06:08)
[2023-04-19] MEDS: Cholecalciferol 1,000 UNITS (25 MCG) TAB PO SCH (06:08)
[2023-04-19] MEDS: Aspirin 325 mg Enteric Coated Tablet PO SCH (06:09)
[2023-04-19] MEDS: hydrALAZINE 25 MG TAB PO SCH ×3 (07:00→20:33)
[2023-04-19] MEDS: Losartan 25 MG TAB PO SCH (07:01)
[2023-04-19] MEDS ORDERED: Lidocaine 1% (PF) 30 ML VIAL ONE (07:06)
[2023-04-19] MEDS ORDERED: Heparin 10,000 UNITS/ 10 ML VIAL ONE (07:06)
[2023-04-19] MEDS ORDERED: Midazolam HCl 2 mg/2 ml Vial ONE (08:44)
[2023-04-19] MEDS ORDERED: fentaNYL 50 mcg/mL 1 mL Vial ONE (08:44)
[2023-04-19] MEDS ORDERED: NIFEdipine XL 30 MG TAB PO SCH (09:45)
[2023-04-19 09:55] LABS: PTT Greater than 250.0 sec (22.9-36.1)
[2023-04-19] MEDS ORDERED: Iopamidol 370 76% 100 ML VIAL ONE (09:59)
[2023-04-19] MEDS ORDERED: Sodium Chloride 0.9% 200 ML IV PRN (10:16)
[2023-04-19] MEDS ORDERED: Acetaminophen/Codeine 30-300mg Tablet PO PRN (10:16)
[2023-04-19] MEDS ORDERED: Nitroglycerin 0.4 MG TAB (25 Tab Bottle) SL PRN (10:16)
[2023-04-19 17:32] LABS: PTT 30.2 sec (22.9-36.1)
[2023-04-19 19:00] LABS: Hemoglobin 10.4 g/dL (12.0-16.0); Platelet Count 151 10x3/uL (130-400)
[2023-04-19] MEDS: Atorvastatin Calcium 40 MG TAB PO SCH (20:32)
[2023-04-19] MEDS: Heparin 5,000 UNITS/ML VIAL SC SCH (20:33)
[2023-04-19] MEDS: Acetaminophen/Codeine 30-300mg Tablet PO PRN (20:33)
[2023-04-20 04:34] LABS: #Eosinphils 0.2 thou/uL (0.0-0.7); #Monocytes 0.4 thou/uL (0.11-0.59); #Neutrophils 4.1 thou/uL (1.40-6.50); %Basophils 0.5 % (0.0-1.0); %Eosinophils 3.3 % (0.0-10.0); %Lymphocytes 18.1 % (21.0-51.0); %Monocytes 7.4 % (0.0-10.0); %Neutrophils 70.4 % (42.0-75.0); Hemoglobin 9.6 g/dL (12.0-16.0); Mean Corpuscular HGB CONC 31.5 g/dL (32.0-36.0); Mean Corpuscular Hemoglobin 31.7 pg (27.0-31.0); Mean Corpuscular Volume 100.7 fl (78.0-98.0); Mean Platelet Volume 11.2 fL (7.4-10.4); Platelet Count 148 10x3/uL (130-400); RBC Distribution Width 14.5 % (11.5-14.5); Red Blood Cell (RBC) Count 3.03 mill/uL (4.20-5.40); White Blood Cell (WBC) Count 5.8 10x3/uL (4.8-10.8)
[2023-04-20 05:02] LABS: ALT (SGPT) 9 U/L (8-55); AST (SGOT) 10 U/L (5-34); Albumin 3.3 g/dL (3.4-4.8); Alkaline Phosphatase 41 U/L (40-110); Anion Gap 13 mmol/L (10-20); BUN (Urea Nitrogen) 15 mg/dL (9.8-20.1); Bilirubin, Total 0.3 mg/dL (0.2-1.2); Calc. Creatinine Clearance 19 mL/min (70-130); Calcium 8.3 mg/dL (7.8-10.44); Carbon Dioxide 29 mmol/L (23-31); Chloride 96 mmol/L (98-107); Estimated GFR 13; Globulin 2.3 g/dL (2.4-3.5); Glucose 156 mg/dL (80-115); Potassium 3.4 mmol/L (3.5-5.1); Protein, Total 5.6 g/dL (5.8-8.1); Sodium 135 mmol/L (136-145)
[2023-04-20] MEDS ORDERED: Potassium Chloride 20 MEQ TAB PO SCH (07:30)
[2023-04-20] MEDS: NIFEdipine XL 90 MG TAB PO SCH (08:41)
[2023-04-20] MEDS: Aspirin 325 mg Enteric Coated Tablet PO SCH (08:42)
[2023-04-20] MEDS: Sevelamer Carbonate 800 MG TAB PO SCH ×3 (08:42→16:47)
[2023-04-20] MEDS: hydrALAZINE 25 MG TAB PO SCH ×3 (08:42→21:56)
[2023-04-20] MEDS: Carvedilol 25 MG TAB PO SCH ×2 (08:43→22:03)
[2023-04-20] MEDS: cloNIDine 0.2 MG TAB PO SCH ×2 (08:43→21:57)
[2023-04-20] MEDS: Folic Acid 1 MG TAB PO SCH (08:43)
[2023-04-20] MEDS: Losartan 25 MG TAB PO SCH (08:44)
[2023-04-20] MEDS: Gabapentin 300 MG CAP PO SCH (08:44)
[2023-04-20] MEDS: Heparin 5,000 UNITS/ML VIAL SC SCH ×3 (09:54→21:57)
[2023-04-20] MEDS: Cholecalciferol 1,000 UNITS (25 MCG) TAB PO SCH (09:54)
[2023-04-20] MEDS ORDERED: Clopidogrel Bisulfate 75 MG TAB PO SCH ×2 (11:00)
[2023-04-20] MEDS: Atorvastatin Calcium 40 MG TAB PO SCH (21:57)
[2023-04-20] MEDS: Acetaminophen/Codeine 30-300mg Tablet PO PRN (22:02)
[2023-04-21 05:15] LABS: #Eosinphils 0.3 thou/uL (0.0-0.7); #Monocytes 0.6 thou/uL (0.11-0.59); #Neutrophils 3.9 thou/uL (1.40-6.50); %Basophils 0.5 % (0.0-1.0); %Eosinophils 4.1 % (0.0-10.0); %Lymphocytes 21.6 % (21.0-51.0); %Monocytes 9.2 % (0.0-10.0); %Neutrophils 64.3 % (42.0-75.0); Hemoglobin 10.2 g/dL (12.0-16.0); Mean Corpuscular HGB CONC 31.7 g/dL (32.0-36.0); Mean Corpuscular Hemoglobin 31.7 pg (27.0-31.0); Mean Platelet Volume 11.7 fL (7.4-10.4); Platelet Count 147 10x3/uL (130-400); RBC Distribution Width 14.4 % (11.5-14.5); Red Blood Cell (RBC) Count 3.22 mill/uL (4.20-5.40); White Blood Cell (WBC) Count 6.1 10x3/uL (4.8-10.8)
[2023-04-21 05:58] LABS: ALT (SGPT) 8 U/L (8-55); AST (SGOT) 10 U/L (5-34); Albumin 3.4 g/dL (3.4-4.8); Alkaline Phosphatase 47 U/L (40-110); Anion Gap 16 mmol/L (10-20); BUN (Urea Nitrogen) 26 mg/dL (9.8-20.1); Bilirubin, Total 0.3 mg/dL (0.2-1.2); Calc. Creatinine Clearance 12 mL/min (70-130); Calcium 8.6 mg/dL (7.8-10.44); Carbon Dioxide 25 mmol/L (23-31); Chloride 96 mmol/L (98-107); Estimated GFR 8; Globulin 2.5 g/dL (2.4-3.5); Glucose 140 mg/dL (80-115); Potassium 4.1 mmol/L (3.5-5.1); Protein, Total 5.9 g/dL (5.8-8.1); Sodium 133 mmol/L (136-145)
[2023-04-21] MEDS: Sevelamer Carbonate 800 MG TAB PO SCH ×2 (08:00→13:56)
[2023-04-21 08:14] VITALS: TEMP 97.3
[2023-04-21] MEDS: hydrALAZINE 25 MG TAB PO SCH (09:00)
[2023-04-21] MEDS: Losartan 25 MG TAB PO SCH (09:00)
[2023-04-21] MEDS ORDERED: Clopidogrel Bisulfate 75 MG TAB PO SCH (09:00)
[2023-04-21] MEDS: Aspirin 325 mg Enteric Coated Tablet PO SCH (09:00)
[2023-04-21] MEDS: Folic Acid 1 MG TAB PO SCH (09:00)
[2023-04-21] MEDS: NIFEdipine XL 90 MG TAB PO SCH (09:00)
[2023-04-21] MEDS: Gabapentin 300 MG CAP PO SCH (09:00)
[2023-04-21] MEDS: cloNIDine 0.2 MG TAB PO SCH (09:00)
[2023-04-21] MEDS: Cholecalciferol 1,000 UNITS (25 MCG) TAB PO SCH (09:00)
[2023-04-21] MEDS: Carvedilol 25 MG TAB PO SCH (09:00)
[2023-04-21] MEDS: Heparin 5,000 UNITS/ML VIAL SC SCH (09:00)
[2023-04-21 14:05] VITALS: BP 124/58
== END 2023-04-21 13:10 | disposition home or self-care (01) | DRG 280 ==
LOC: ERS 15:14 → OBSVTOIN 19:07 → 2NO 19:07
PROVIDERS: ADMIT Student in an Organized Health Care Education/Training Program; ATTEND Student in an Organized Health Care Education/Training Program
PROC: 4A023N7 Measurement of Cardiac Sampling and Pressure, Left Heart, Percutaneous Approach (ICD-10-PCS; principal; 2023-04-19)
PROC: B2111ZZ Fluoroscopy of Multiple Coronary Arteries using Low Osmolar Contrast (ICD-10-PCS; 2023-04-19)
PROC: B2151ZZ Fluoroscopy of Left Heart using Low Osmolar Contrast (ICD-10-PCS; 2023-04-19)
PROC: B2181ZZ Fluoroscopy of Left Internal Mammary Bypass Graft using Low Osmolar Contrast (ICD-10-PCS; 2023-04-19)
PROC: B2121ZZ Fluoroscopy of Single Coronary Artery Bypass Graft using Low Osmolar Contrast (ICD-10-PCS; 2023-04-19)
PROC: 5A1D70Z Performance of Urinary Filtration, Intermittent, Less than 6 Hours Per Day (ICD-10-PCS; 2023-04-21)
DX: I21.4 Non-ST elevation (NSTEMI) myocardial infarction (principal); N18.6 End stage renal disease; I13.2 Hypertensive heart and chronic kidney disease with heart failure and with stage 5 chronic kidney disease, or end stage renal disease; I50.32 Chronic diastolic (congestive) heart failure; T82.9XXA Unspecified complication of cardiac and vascular prosthetic device, implant and graft, initial encounter; T82.855A Stenosis of coronary artery stent, initial encounter; E11.22 Type 2 diabetes mellitus with diabetic chronic kidney disease; E11.40 Type 2 diabetes mellitus with diabetic neuropathy, unspecified; F32.9 Major depressive disorder, single episode, unspecified; I45.81 Long QT syndrome; D63.1 Anemia in chronic kidney disease; E78.00 Pure hypercholesterolemia, unspecified; E87.6 Hypokalemia; I25.10 Atherosclerotic heart disease of native coronary artery without angina pectoris; Z95.1 Presence of aortocoronary bypass graft; Z99.2 Dependence on renal dialysis; Z86.73 Personal history of transient ischemic attack (TIA), and cerebral infarction without residual deficits; Z88.8 Allergy status to other drugs, medicaments and biological substances; Z79.82 Long term (current) use of aspirin; Z79.899 Other long term (current) drug therapy; Z95.5 Presence of coronary angioplasty implant and graft
CPT/HCPCS: 36415; 71045; 80053; 82553; 82607; 83690; 83735; 83880; 84100; 84484; 85025; 85347; 85520; 85610; 85730; 93005; 93459; 94760; 96374; 96375; C1769; J1644; J2001; J2250; J2270; J2405; J3010; Q4081; Q9967

== ENCOUNTER 2023-06-27 17:26 | Inpatient (IN) | payer MEDICARE ==
[2023-06-27 18:33] LABS: Hematocrit 25.1 % (36.0-47.0); Mean Corpuscular HGB CONC 31.9 g/dL (32.0-36.0); Mean Corpuscular Hemoglobin 33.3 pg (27.0-31.0); Mean Corpuscular Volume 104.6 fl (78.0-98.0); Mean Platelet Volume 10.2 fL (7.4-10.4); Platelet Count 271 10x3/uL (130-400); RBC Distribution Width 14.7 % (11.5-14.5); White Blood Cell (WBC) Count 9.5 10x3/uL (4.8-10.8)
[2023-06-27 18:39] LABS: Delete Auto Diff?? YES; Manual Diff?? YES
[2023-06-27 18:46] LABS: INR-International Normal Ratio 1.2; Prothrombin Time 15.5 sec (12.0-14.7)
[2023-06-27 18:47] LABS: PTT 25.2 sec (22.9-36.1)
[2023-06-27 18:55] LABS: Acetaminophen Less than 10 mcg/mL (10.0-30.0); Alcohol Less than 10.0 mg/dL (Less than 10); Salicylate Less than 8.0 mg/dL (15.0-30.0)
[2023-06-27 19:04] LABS: Burr Cells SLIGHT = 2-5 cells HPF (0-1); CellaVision Operator ID LAB.KB; Eosinophils 2 % (0-10); Hypersegmented Neutrophil SLIGHT (None Seen); Lymphocytes 11 % (21-51); Macrocytosis SLIGHT = 6-15 cells HPF (0-5); Monocytes 4 % (0-10); Myelocyte 1 % (0-0); Neutrophil 82 % (42-75); Nucleated RBC (Manual Ct) 4 % (0); Platelet Adequacy Comment Platelets Normal; Polychromasia SLIGHT = 2-3 cells HPF (0-2); Total Cell Count 100
[2023-06-27 19:05] LABS: ALT (SGPT) Less than 7 U/L (8-55); AST (SGOT) 20 U/L (5-34); Albumin 3.2 g/dL (3.4-4.8); Alkaline Phosphatase 62 U/L (40-110); Anion Gap 19 mmol/L (10-20); BUN (Urea Nitrogen) 48 mg/dL (9.8-20.1); Bilirubin, Total 0.4 mg/dL (0.2-1.2); Calc. Creatinine Clearance 0 mL/min (70-130); Calcium 7.4 mg/dL (7.8-10.44); Carbon Dioxide 24 mmol/L (23-31); Chloride 96 mmol/L (98-107); Estimated GFR 7; Globulin 2.3 g/dL (2.4-3.5); Glucose 163 mg/dL (80-115); Protein, Total 5.5 g/dL (5.8-8.1); Sodium 135 mmol/L (136-145)
[2023-06-27 19:06] LABS: Amphetamine Not Detected (NotDetected); Barbiturates Screen Not Detected (NotDetected); Benzodiazepine Screen Not Detected (NotDetected); Cocaine Metabolite Screen Not Detected (NotDetected); Methadone Not Detected (NotDetected); Methamphetamine Not Detected (NotDetected); Opiate Screen Detected (NotDetected); Oxycodone Screen Not Detected (NotDetected); Phencyclidine (PCP) Not Detected (NotDetected); THC/Cannabinoid Screen Not Detected (NotDetected); Tricyclic Screen Not Detected (NotDetected)
[2023-06-27 19:07] LABS: Bacteria/HPF None Seen HPF (None Seen); Bilirubin Negative (Negative); Blood, Urine Negative (Negative); CAUTI Indications for Culture Alt mental st,lethar; Clarity Turbid (Clear); Glucose, Urine (Dipstick) 50 mg/dL (Negative); Ketone, Urine Negative (Negative); Leukocyte Negative Leu/uL (Negative); Nitrite Negative (Negative); Protein, Urine (Dipstick) 200 mg/dL (Neg-Trace); RBC/HPF 0-3 HPF (0-3); Specific Gravity, Urine 1.024 (1.002-1.036); Squamous Epithelial 0-3 HPF (0-3); Urobilinogen Normal mg/dL (Less than 2); WBC/HPF 0-3 HPF (0-3); pH, Urine 5.5 (5.0-9.0)
[2023-06-27 19:10] LABS: Urine Culture Reflex No No
[2023-06-27 19:12] LABS: Troponin I 15.631 ng/mL (< 0.028)
[2023-06-27] MEDS ORDERED: Aspirin 325 MG TAB ONE (19:20)
[2023-06-27 19:32] LABS: Phosphorus 2.6 mg/dL (2.3-4.7)
[2023-06-27] MEDS ORDERED: Acetaminophen 325 MG TAB PO PRN (21:30)
[2023-06-27] MEDS ORDERED: Ondansetron ODT 4 MG TAB SL PRN (21:30)
[2023-06-27] MEDS ORDERED: Ondansetron PF 4 MG/2 ML Vial IVP PRN (21:30)
[2023-06-27 22:24] LABS: Lactic Acid 1.2 mmol/L (0.5-2.2)
[2023-06-27] MEDS ORDERED: Lactated Ringer's 1,000 ML IV SCH (23:30)
[2023-06-28] MEDS ORDERED: Zinc Oxide 20% Oint 30 GM TUBE TOP PRN (00:17)
[2023-06-28] MEDS ORDERED: Capsaicin 0.025% Cream 60 gm Tube TOP PRN (00:17)
[2023-06-28] MEDS ORDERED: Witch Hazel-Glycerin 1 EACH JAR TOP PRN (00:17)
[2023-06-28] MEDS ORDERED: HumaLOG 300 UNITS/3 ML VIAL SC PRN (01:00)
[2023-06-28] MEDS ORDERED: Dextrose 5% in Water 1,000 ML IV PRN (01:00)
[2023-06-28] MEDS ORDERED: Dextrose 50% Abboject 50 ML SYRINGE SLOW IVP PRN (01:00)
[2023-06-28] MEDS ORDERED: Glucagon 1 MG/ML KIT IM PRN (01:00)
[2023-06-28] MEDS ORDERED: Ipratropium/Albuterol 3 ML NEB NEB PRN (01:02)
[2023-06-28] MEDS ORDERED: Pantoprazole 40 MG VIAL ONE (01:22)
[2023-06-28] MEDS ORDERED: Pantoprazole 40 MG VIAL IVP SCH ×2 (01:30→21:00)
[2023-06-28 03:42] LABS: #Eosinphils 0.2 thou/uL (0.0-0.7); #Monocytes 0.7 thou/uL (0.11-0.59); #Neutrophils 6.9 thou/uL (1.40-6.50); %Basophils 0.4 % (0.0-1.0); %Eosinophils 2.4 % (0.0-10.0); %Lymphocytes 15.9 % (21.0-51.0); %Monocytes 6.8 % (0.0-10.0); %Neutrophils 72.6 % (42.0-75.0); Hemoglobin 7.3 g/dL (12.0-16.0); Mean Corpuscular HGB CONC 31.7 g/dL (32.0-36.0); Mean Corpuscular Hemoglobin 33.5 pg (27.0-31.0); Mean Corpuscular Volume 105.5 fl (78.0-98.0); Mean Platelet Volume 10.2 fL (7.4-10.4); Platelet Count 245 10x3/uL (130-400); Red Blood Cell (RBC) Count 2.18 mill/uL (4.20-5.40); White Blood Cell (WBC) Count 9.5 10x3/uL (4.8-10.8)
[2023-06-28 04:04] LABS: ALT (SGPT) Less than 7 U/L (8-55); AST (SGOT) 18 U/L (5-34); Alkaline Phosphatase 54 U/L (40-110); Anion Gap 20 mmol/L (10-20); BUN (Urea Nitrogen) 50 mg/dL (9.8-20.1); Bilirubin, Total 0.5 mg/dL (0.2-1.2); Calc. Creatinine Clearance 12 mL/min (70-130); Calcium 7.6 mg/dL (7.8-10.44); Carbon Dioxide 21 mmol/L (23-31); Chloride 97 mmol/L (98-107); Estimated GFR 7; Globulin 2.5 g/dL (2.4-3.5); Glucose 142 mg/dL (80-115); Potassium 3.8 mmol/L (3.5-5.1); Protein, Total 5.5 g/dL (5.8-8.1); Sodium 134 mmol/L (136-145)
[2023-06-28 04:29] LABS: Critical Call Chem Troponin I RESULT DECREASING; Troponin I 13.883 ng/mL (< 0.028)
[2023-06-28] MEDS ORDERED: Heparin 5,000 UNITS/ML VIAL SC SCH (09:00)
[2023-06-28] MEDS ORDERED: Aspirin 300 MG Suppository PR SCH (09:00)
[2023-06-28] MEDS ORDERED: Heparin 10,000 UNITS/ 10 ML VIAL ONE (10:58)
[2023-06-28] MEDS: Sevelamer Carbonate 800 MG TAB PO SCH ×2 (12:00→16:20)
[2023-06-28] MEDS ORDERED: Ketorolac Tromethamine 30 MG/ML VIAL IVP SCH (18:00)
[2023-06-28] MEDS ORDERED: Acetaminophen 500 MG TAB PO SCH (19:15)
[2023-06-28] MEDS ORDERED: Clopidogrel Bisulfate 75 MG TAB PO SCH (19:45)
[2023-06-28] MEDS: Atorvastatin Calcium 40 MG TAB PO SCH (20:03)
[2023-06-28] MEDS: cloNIDine 0.2 MG TAB PO SCH (20:03)
[2023-06-29] MEDS ORDERED: Acetaminophen 500 MG TAB PO SCH (06:00)
[2023-06-29 07:02] LABS: #Eosinphils 0.2 thou/uL (0.0-0.7); #Monocytes 0.6 thou/uL (0.11-0.59); #Neutrophils 6.5 thou/uL (1.40-6.50); %Basophils 0.3 % (0.0-1.0); %Eosinophils 2.5 % (0.0-10.0); %Lymphocytes 12.4 % (21.0-51.0); %Monocytes 7.2 % (0.0-10.0); %Neutrophils 73.7 % (42.0-75.0); Hematocrit 23.6 % (36.0-47.0); Hemoglobin 7.5 g/dL (12.0-16.0); Mean Corpuscular HGB CONC 31.8 g/dL (32.0-36.0); Mean Corpuscular Hemoglobin 33.3 pg (27.0-31.0); Mean Corpuscular Volume 104.9 fl (78.0-98.0); Mean Platelet Volume 10.2 fL (7.4-10.4); Platelet Count 243 10x3/uL (130-400); RBC Distribution Width 15.6 % (11.5-14.5); Red Blood Cell (RBC) Count 2.25 mill/uL (4.20-5.40); White Blood Cell (WBC) Count 8.8 10x3/uL (4.8-10.8)
[2023-06-29 07:32] LABS: ALT (SGPT) Less than 7 U/L (8-55); AST (SGOT) 26 U/L (5-34); Alkaline Phosphatase 61 U/L (40-110); Anion Gap 18 mmol/L (10-20); BUN (Urea Nitrogen) 29 mg/dL (9.8-20.1); Bilirubin, Total 0.6 mg/dL (0.2-1.2); Calc. Creatinine Clearance 15 mL/min (70-130); Calcium 8.1 mg/dL (7.8-10.44); Carbon Dioxide 26 mmol/L (23-31); Chloride 97 mmol/L (98-107); Estimated GFR 10; Globulin 2.8 g/dL (2.4-3.5); Glucose 172 mg/dL (80-115); Potassium 3.7 mmol/L (3.5-5.1); Protein, Total 5.8 g/dL (5.8-8.1); Sodium 137 mmol/L (136-145)
[2023-06-29] MEDS ORDERED: Benzocaine 20% Spray 60 ML CAN PO SCH (09:15)
[2023-06-29] MEDS: Cholecalciferol 1,000 UNITS (25 MCG) TAB PO SCH (09:29)
[2023-06-29] MEDS: Carvedilol 25 MG TAB PO SCH ×2 (09:30→17:51)
[2023-06-29] MEDS: NIFEdipine XL 90 MG ER.TAB PO SCH (09:30)
[2023-06-29] MEDS: Losartan 25 MG TAB PO SCH (09:31)
[2023-06-29] MEDS: Isosorbide Mononitrate 60 MG ER.TAB PO SCH (09:31)
[2023-06-29] MEDS: Sevelamer Carbonate 800 MG TAB PO SCH ×3 (09:31→17:50)
[2023-06-29] MEDS: Clopidogrel Bisulfate 75 MG TAB PO SCH (09:31)
[2023-06-29] MEDS: Megestrol Acetate 40 MG TAB PO SCH (09:31)
[2023-06-29] MEDS: Aspirin 81 mg Enteric Coated Tablet PO SCH (09:32)
[2023-06-29] MEDS: cloNIDine 0.2 MG TAB PO SCH ×2 (09:32→20:34)
[2023-06-29] MEDS: Folic Acid 1 MG TAB PO SCH (09:32)
[2023-06-29] MEDS ORDERED: Lidocaine 4% Patch TD SCH ×2 (10:30)
[2023-06-29] MEDS ORDERED: HYDROcodone/Acetaminophen 5/325 mg Tablet PO PRN ×2 (11:41)
[2023-06-29] MEDS ORDERED: Acetaminophen 325 MG TAB PO PRN (11:51)
[2023-06-29] MEDS: HumaLOG 300 UNITS/3 ML VIAL SC PRN ×2 (13:06→17:52)
[2023-06-29] MEDS: Atorvastatin Calcium 40 MG TAB PO SCH (20:34)
[2023-06-29] MEDS: Melatonin 3 MG TAB PO PRN (20:35)
[2023-06-29] MEDS: Transdermal Patch Removal TOP SCH (20:36)
[2023-06-29] MEDS: Acetaminophen 325 MG TAB PO PRN (20:38)
[2023-06-30] MEDS: Acetaminophen 325 MG TAB PO PRN ×3 (03:07→21:51)
[2023-06-30] MEDS ORDERED: Ketorolac Tromethamine 30 MG/ML VIAL IVP SCH ×2 (05:00→18:15)
[2023-06-30 05:43] LABS: #Eosinphils 0.3 thou/uL (0.0-0.7); #Monocytes 0.6 thou/uL (0.11-0.59); #Neutrophils 6.8 thou/uL (1.40-6.50); %Basophils 0.4 % (0.0-1.0); %Eosinophils 2.9 % (0.0-10.0); %Lymphocytes 13.6 % (21.0-51.0); %Monocytes 6.7 % (0.0-10.0); %Neutrophils 72.6 % (42.0-75.0); Hematocrit 23.6 % (36.0-47.0); Hemoglobin 7.5 g/dL (12.0-16.0); Mean Corpuscular HGB CONC 31.8 g/dL (32.0-36.0); Mean Platelet Volume 10.5 fL (7.4-10.4); Platelet Count 218 10x3/uL (130-400); RBC Distribution Width 16.2 % (11.5-14.5); Red Blood Cell (RBC) Count 2.27 mill/uL (4.20-5.40); White Blood Cell (WBC) Count 9.4 10x3/uL (4.8-10.8)
[2023-06-30] MEDS: Lidocaine 4% Patch TD SCH (08:52)
[2023-06-30] MEDS: cloNIDine 0.2 MG TAB PO SCH ×2 (09:47→20:39)
[2023-06-30] MEDS: Carvedilol 25 MG TAB PO SCH ×2 (09:47→18:07)
[2023-06-30] MEDS: Sevelamer Carbonate 800 MG TAB PO SCH ×3 (09:47→18:06)
[2023-06-30] MEDS: NIFEdipine XL 90 MG ER.TAB PO SCH (09:48)
[2023-06-30] MEDS: Aspirin 81 mg Enteric Coated Tablet PO SCH (11:09)
[2023-06-30] MEDS: Losartan 25 MG TAB PO SCH (11:10)
[2023-06-30] MEDS: Folic Acid 1 MG TAB PO SCH (11:10)
[2023-06-30] MEDS: Cholecalciferol 1,000 UNITS (25 MCG) TAB PO SCH (11:10)
[2023-06-30] MEDS: Megestrol Acetate 40 MG TAB PO SCH (11:11)
[2023-06-30] MEDS: Isosorbide Mononitrate 60 MG ER.TAB PO SCH (11:11)
[2023-06-30] MEDS: Clopidogrel Bisulfate 75 MG TAB PO SCH (11:11)
[2023-06-30] MEDS ORDERED: Heparin 10,000 UNITS/ 10 ML VIAL ONE (12:53)
[2023-06-30] MEDS: HumaLOG 300 UNITS/3 ML VIAL SC PRN (18:04)
[2023-06-30 20:32] LABS: Albumin 3.1 g/dL (3.4-4.8)
[2023-06-30 20:33] LABS: Chloride 92 mmol/L (98-107); Potassium 4.2 mmol/L (3.5-5.1); Sodium 130 mmol/L (136-145)
[2023-06-30 20:34] LABS: Calcium 7.9 mg/dL (7.8-10.44); Glucose 169 mg/dL (80-115)
[2023-06-30 20:35] LABS: Globulin 2.6 g/dL (2.4-3.5); Protein, Total 5.7 g/dL (5.8-8.1)
[2023-06-30 20:36] LABS: Anion Gap 17 mmol/L (10-20); Bilirubin, Total 0.4 mg/dL (0.2-1.2); Carbon Dioxide 25 mmol/L (23-31)
[2023-06-30 20:37] LABS: Alkaline Phosphatase 51 U/L (40-110)
[2023-06-30 20:38] LABS: Calc. Creatinine Clearance 12 mL/min (70-130); Estimated GFR 7
[2023-06-30 20:39] LABS: BUN (Urea Nitrogen) 42 mg/dL (9.8-20.1)
[2023-06-30] MEDS: Atorvastatin Calcium 40 MG TAB PO SCH (20:39)
[2023-06-30 20:40] LABS: ALT (SGPT) Less than 7 U/L (8-55); AST (SGOT) 18 U/L (5-34)
[2023-06-30] MEDS: Transdermal Patch Removal TOP SCH (20:40)
[2023-06-30] MEDS: Melatonin 3 MG TAB PO PRN (20:45)
[2023-06-30] MEDS ORDERED: Ketorolac Tromethamine 30 MG/ML VIAL ONE (22:32)
[2023-06-30] MEDS ORDERED: Methyl Salicylate/Menthol 85 GM TUBE TOP PRN (23:59)
[2023-07-01] MEDS: Ketorolac Tromethamine 30 MG/ML VIAL IVP SCH ×4 (01:02→18:59)
[2023-07-01 06:12] LABS: #Eosinphils 0.2 thou/uL (0.0-0.7); #Monocytes 0.6 thou/uL (0.11-0.59); #Neutrophils 9.1 thou/uL (1.40-6.50); %Basophils 0.3 % (0.0-1.0); %Eosinophils 2.1 % (0.0-10.0); %Monocytes 5.3 % (0.0-10.0); Hematocrit 21.6 % (36.0-47.0); Mean Corpuscular HGB CONC 32.4 g/dL (32.0-36.0); Mean Corpuscular Hemoglobin 33.8 pg (27.0-31.0); Mean Corpuscular Volume 104.3 fl (78.0-98.0); Mean Platelet Volume 10.6 fL (7.4-10.4); Platelet Count 189 10x3/uL (130-400); Red Blood Cell (RBC) Count 2.07 mill/uL (4.20-5.40); White Blood Cell (WBC) Count 11.2 10x3/uL (4.8-10.8)
[2023-07-01 06:39] LABS: ALT (SGPT) 7 U/L (8-55); AST (SGOT) 20 U/L (5-34); Alkaline Phosphatase 56 U/L (40-110); Anion Gap 19 mmol/L (10-20); BUN (Urea Nitrogen) 57 mg/dL (9.8-20.1); Bilirubin, Total 0.6 mg/dL (0.2-1.2); Calc. Creatinine Clearance 11 mL/min (70-130); Calcium 7.6 mg/dL (7.8-10.44); Carbon Dioxide 21 mmol/L (23-31); Chloride 91 mmol/L (98-107); Estimated GFR 7; Globulin 2.7 g/dL (2.4-3.5); Glucose 149 mg/dL (80-115); Potassium 4.8 mmol/L (3.5-5.1); Protein, Total 5.7 g/dL (5.8-8.1); Sodium 126 mmol/L (136-145)
[2023-07-01] MEDS: Carvedilol 25 MG TAB PO SCH ×2 (08:26→17:20)
[2023-07-01] MEDS: Cholecalciferol 1,000 UNITS (25 MCG) TAB PO SCH (08:26)
[2023-07-01] MEDS: NIFEdipine XL 90 MG ER.TAB PO SCH (08:26)
[2023-07-01] MEDS: Sevelamer Carbonate 800 MG TAB PO SCH ×3 (08:26→18:34)
[2023-07-01] MEDS: Folic Acid 1 MG TAB PO SCH (08:27)
[2023-07-01] MEDS: Isosorbide Mononitrate 60 MG ER.TAB PO SCH (08:27)
[2023-07-01] MEDS: Clopidogrel Bisulfate 75 MG TAB PO SCH (08:27)
[2023-07-01] MEDS: Lidocaine 4% Patch TD SCH (08:27)
[2023-07-01] MEDS: cloNIDine 0.2 MG TAB PO SCH ×2 (08:27→19:40)
[2023-07-01] MEDS: Losartan 25 MG TAB PO SCH (08:27)
[2023-07-01] MEDS: Aspirin 81 mg Enteric Coated Tablet PO SCH (08:27)
[2023-07-01] MEDS: Acetaminophen 325 MG TAB PO PRN ×2 (08:27→19:44)
[2023-07-01] MEDS: Megestrol Acetate 40 MG TAB PO SCH (08:27)
[2023-07-01] MEDS ORDERED: Gabapentin 300 MG CAP PO SCH (10:30)
[2023-07-01] MEDS ORDERED: Morphine 2 MG/ML VIAL SLOW IVP PRN ×3 (12:39→15:05)
[2023-07-01] MEDS ORDERED: Ondansetron ORAL SOLN. 4 MG/5 ML UDCUP PO PRN (14:00)
[2023-07-01] MEDS ORDERED: fentaNYL 50 mcg/hour Patch TD SCH (17:00)
[2023-07-01] MEDS: Atorvastatin Calcium 40 MG TAB PO SCH (19:44)
[2023-07-01] MEDS: Transdermal Patch Removal TOP SCH (20:53)
[2023-07-01] MEDS: Morphine 4 MG/ML VIAL SLOW IVP PRN (22:09)
[2023-07-02] MEDS: Ketorolac Tromethamine 30 MG/ML VIAL IVP SCH ×2 (00:32→05:24)
[2023-07-02] MEDS: Morphine 4 MG/ML VIAL SLOW IVP PRN (04:03)
[2023-07-02] MEDS ORDERED: Ondansetron PF 4 MG/2 ML Vial IVP PRN (05:40)
[2023-07-02 06:03] LABS: #Eosinphils 0.2 thou/uL (0.0-0.7); #Monocytes 0.8 thou/uL (0.11-0.59); %Basophils 0.3 % (0.0-1.0); %Eosinophils 1.5 % (0.0-10.0); %Lymphocytes 6.1 % (21.0-51.0); %Monocytes 5.3 % (0.0-10.0); %Neutrophils 85.5 % (42.0-75.0); Hematocrit 21.7 % (36.0-47.0); Hemoglobin 7.1 g/dL (12.0-16.0); Mean Corpuscular HGB CONC 32.7 g/dL (32.0-36.0); Mean Corpuscular Volume 103.8 fl (78.0-98.0); Mean Platelet Volume 10.8 fL (7.4-10.4); Platelet Count 183 10x3/uL (130-400); Red Blood Cell (RBC) Count 2.09 mill/uL (4.20-5.40); White Blood Cell (WBC) Count 15.2 10x3/uL (4.8-10.8)
[2023-07-02 06:30] LABS: Albumin 3.2 g/dL (3.4-4.8); Anion Gap 22 mmol/L (10-20); BUN (Urea Nitrogen) 65 mg/dL (9.8-20.1); BUN/Creatinine Ratio 8.93; Calc. Creatinine Clearance 10 mL/min (70-130); Carbon Dioxide 23 mmol/L (23-31); Chloride 90 mmol/L (98-107); Estimated GFR 6; Glucose 150 mg/dL (80-115); Iron 30 ug/dL (50-170); Iron Binding Capacity, Total 249 mcg/dL (265-497); Phosphorus 4.7 mg/dL (2.3-4.7); Potassium 4.8 mmol/L (3.5-5.1); Sodium 130 mmol/L (136-145)
[2023-07-02] MEDS ORDERED: Morphine 2 MG/ML VIAL SLOW IVP PRN (08:00)
[2023-07-02] MEDS: Pantoprazole 40 MG VIAL IVP SCH ×2 (08:34→20:17)
[2023-07-02] MEDS ORDERED: Gabapentin 300 MG CAP PO SCH (09:00)
[2023-07-02 09:20] LABS: Hematocrit 23.5 % (36.0-47.0); Hemoglobin 7.7 g/dL (12.0-16.0)
[2023-07-02] MEDS: Folic Acid 1 MG TAB PO SCH (10:14)
[2023-07-02] MEDS: Carvedilol 25 MG TAB PO SCH ×2 (10:14→17:15)
[2023-07-02] MEDS: cloNIDine 0.2 MG TAB PO SCH ×2 (10:14→20:16)
[2023-07-02] MEDS: Cholecalciferol 1,000 UNITS (25 MCG) TAB PO SCH (10:14)
[2023-07-02] MEDS: Sevelamer Carbonate 800 MG TAB PO SCH ×3 (10:14→17:33)
[2023-07-02] MEDS: Isosorbide Mononitrate 60 MG ER.TAB PO SCH (10:15)
[2023-07-02] MEDS: Megestrol Acetate 40 MG TAB PO SCH (10:15)
[2023-07-02] MEDS: Losartan 25 MG TAB PO SCH (10:15)
[2023-07-02] MEDS: NIFEdipine XL 90 MG ER.TAB PO SCH (10:15)
[2023-07-02] MEDS ORDERED: Lidocaine 1% MPF 2 ML VIAL ONE (12:35)
[2023-07-02] MEDS: Lidocaine 4% Patch TD SCH (13:32)
[2023-07-02] MEDS ORDERED: Midazolam HCl 2 mg/2 ml Vial ONE (14:19)
[2023-07-02] MEDS ORDERED: Ketamine 50 MG/ML (10ML VIAL) ONE (14:19)
[2023-07-02] MEDS ORDERED: Glycopyrrolate 0.2 MG/ML 5 ML SYRINGE ONE (14:29)
[2023-07-02] MEDS ORDERED: PROPOFOL 200 MG/20 ML VIAL ONE (14:29)
[2023-07-02] MEDS ORDERED: Ondansetron HCl/PF 4 MG/2 ML Vial IVP PRN (15:08)
[2023-07-02] MEDS ORDERED: Promethazine HCl 25 MG/ML VIAL IM PRN (15:08)
[2023-07-02] MEDS ORDERED: HYDROmorphone 2 MG/ML VIAL SLOW IVP PRN (15:08)
[2023-07-02] MEDS ORDERED: Lactated Ringer's 1,000 ML IV SCH (15:15)
[2023-07-02] MEDS ORDERED: Metoclopramide HCl 10 MG/2 ML VIAL IVP PRN (15:37)
[2023-07-02] MEDS: Clopidogrel Bisulfate 75 MG TAB PO SCH (16:02)
[2023-07-02] MEDS: Aspirin 81 mg Enteric Coated Tablet PO SCH (16:02)
[2023-07-02] MEDS ORDERED: fentaNYL 50 mcg/mL 1 mL Vial ONE (16:12)
[2023-07-02] MEDS: Sodium Chloride 0.9% 1,000 ML IV SCH (17:16)
[2023-07-02 18:52] LABS: Hematocrit 23.2 % (36.0-47.0); Hemoglobin 7.7 g/dL (12.0-16.0)
[2023-07-02] MEDS: Transdermal Patch Removal TOP SCH ×2 (20:04)
[2023-07-02] MEDS ORDERED: Methylnaltrexone 12 MG/0.6 ML VIAL SC SCH (20:15)
[2023-07-02] MEDS: Melatonin 3 MG TAB PO PRN (20:16)
[2023-07-02] MEDS: Atorvastatin Calcium 40 MG TAB PO SCH (20:16)
[2023-07-02] MEDS ORDERED: Naloxegol 12.5 MG TAB PO SCH (21:00)
[2023-07-03 04:23] LABS: #Basophils 0.1 thou/uL (0.0-0.2); #Eosinphils 0.1 thou/uL (0.0-0.7); #Monocytes 0.4 thou/uL (0.11-0.59); #Neutrophils 12.2 thou/uL (1.40-6.50); %Basophils 0.4 % (0.0-1.0); %Eosinophils 0.4 % (0.0-10.0); %Lymphocytes 2.4 % (21.0-51.0); %Monocytes 2.8 % (0.0-10.0); %Neutrophils 92.9 % (42.0-75.0); Hematocrit 24.5 % (36.0-47.0); Hemoglobin 8.1 g/dL (12.0-16.0); Mean Corpuscular HGB CONC 33.1 g/dL (32.0-36.0); Mean Corpuscular Hemoglobin 32.5 pg (27.0-31.0); Mean Platelet Volume 11.4 fL (7.4-10.4); Platelet Count 175 10x3/uL (130-400); RBC Distribution Width 15.8 % (11.5-14.5); Red Blood Cell (RBC) Count 2.49 mill/uL (4.20-5.40); White Blood Cell (WBC) Count 13.1 10x3/uL (4.8-10.8)
[2023-07-03 04:28] LABS: Mean Corpuscular Volume 98.4 fl (78.0-98.0)
[2023-07-03] MEDS: Sodium Chloride 0.9% 1,000 ML IV SCH ×2 (05:18→18:49)
[2023-07-03] MEDS ORDERED: Epoetin (ESRD) 10,000 UNITS/ML VIAL SC SCH (09:00)
[2023-07-03] MEDS ORDERED: diphenhydrAMINE 50 MG/ML VIAL IVP SCH (09:15)
[2023-07-03] MEDS: Sevelamer Carbonate 800 MG TAB PO SCH ×3 (09:52→16:34)
[2023-07-03] MEDS: cloNIDine 0.2 MG TAB PO SCH ×2 (10:52→21:34)
[2023-07-03] MEDS: Clopidogrel Bisulfate 75 MG TAB PO SCH (10:52)
[2023-07-03] MEDS: Aspirin 81 mg Enteric Coated Tablet PO SCH (10:52)
[2023-07-03] MEDS: Lidocaine 4% Patch TD SCH (10:52)
[2023-07-03] MEDS: Isosorbide Mononitrate 60 MG ER.TAB PO SCH (10:53)
[2023-07-03] MEDS: Losartan 25 MG TAB PO SCH (10:53)
[2023-07-03] MEDS: Folic Acid 1 MG TAB PO SCH (10:53)
[2023-07-03] MEDS: Cholecalciferol 1,000 UNITS (25 MCG) TAB PO SCH (10:53)
[2023-07-03] MEDS: Pantoprazole 40 MG VIAL IVP SCH ×2 (10:53→21:34)
[2023-07-03] MEDS: NIFEdipine XL 90 MG ER.TAB PO SCH (10:54)
[2023-07-03] MEDS: Carvedilol 25 MG TAB PO SCH ×2 (10:55→16:34)
[2023-07-03 13:42] LABS: #Monocytes 0.3 thou/uL (0.11-0.59); #Neutrophils 8.2 thou/uL (1.40-6.50); %Basophils 0.2 % (0.0-1.0); %Eosinophils 0.3 % (0.0-10.0); %Lymphocytes 1.5 % (21.0-51.0); %Monocytes 3.3 % (0.0-10.0); %Neutrophils 93.8 % (42.0-75.0); Hematocrit 20.9 % (36.0-47.0); Mean Corpuscular HGB CONC 33.5 g/dL (32.0-36.0); Mean Corpuscular Hemoglobin 33.3 pg (27.0-31.0); Mean Corpuscular Volume 99.5 fl (78.0-98.0); Mean Platelet Volume 11.3 fL (7.4-10.4); Platelet Count 143 10x3/uL (130-400); RBC Distribution Width 15.7 % (11.5-14.5); White Blood Cell (WBC) Count 8.8 10x3/uL (4.8-10.8)
[2023-07-03 14:12] LABS: ALT (SGPT) 8 U/L (8-55); AST (SGOT) 23 U/L (5-34); Albumin 2.8 g/dL (3.4-4.8); Alkaline Phosphatase 59 U/L (40-110); Anion Gap 17 mmol/L (10-20); BUN (Urea Nitrogen) 43 mg/dL (9.8-20.1); Bilirubin, Total 0.7 mg/dL (0.2-1.2); Calc. Creatinine Clearance 15 mL/min (70-130); Calcium 8.2 mg/dL (7.8-10.44); Carbon Dioxide 27 mmol/L (23-31); Chloride 93 mmol/L (98-107); Estimated GFR 9; Globulin 2.6 g/dL (2.4-3.5); Glucose 144 mg/dL (80-115); Magnesium 1.8 mg/dL (1.6-2.6); Potassium 4.1 mmol/L (3.5-5.1); Protein, Total 5.4 g/dL (5.8-8.1); Sodium 133 mmol/L (136-145)
[2023-07-03 15:49] LABS: Hematocrit 21.1 % (36.0-47.0); Hemoglobin 6.9 g/dL (12.0-16.0)
[2023-07-03] MEDS ORDERED: Heparin 10,000 UNITS/ 10 ML VIAL ONE (16:02)
[2023-07-03] MEDS: Atorvastatin Calcium 40 MG TAB PO SCH (21:34)
[2023-07-03] MEDS: Transdermal Patch Removal TOP SCH ×2 (21:35)
[2023-07-03 22:51] LABS: Hematocrit 21.5 % (36.0-47.0)
[2023-07-04] MEDS: Sodium Chloride 0.9% 1,000 ML IV SCH ×3 (03:52→16:39)
[2023-07-04 05:21] LABS: #Eosinphils 0.2 thou/uL (0.0-0.7); #Monocytes 0.6 thou/uL (0.11-0.59); #Neutrophils 8.4 thou/uL (1.40-6.50); %Basophils 0.4 % (0.0-1.0); %Eosinophils 1.6 % (0.0-10.0); %Lymphocytes 7.4 % (21.0-51.0); %Monocytes 6.3 % (0.0-10.0); %Neutrophils 83.5 % (42.0-75.0); Hematocrit 25.9 % (36.0-47.0); Hemoglobin 8.4 g/dL (12.0-16.0); Mean Corpuscular HGB CONC 32.4 g/dL (32.0-36.0); Mean Corpuscular Hemoglobin 32.1 pg (27.0-31.0); Mean Corpuscular Volume 98.9 fl (78.0-98.0); Mean Platelet Volume 11.3 fL (7.4-10.4); Platelet Count 190 10x3/uL (130-400); RBC Distribution Width 17.2 % (11.5-14.5); Red Blood Cell (RBC) Count 2.62 mill/uL (4.20-5.40); White Blood Cell (WBC) Count 10.1 10x3/uL (4.8-10.8)
[2023-07-04] MEDS: Acetaminophen 325 MG TAB PO PRN ×2 (05:25→11:23)
[2023-07-04 07:34] LABS: ALT (SGPT) 10 U/L (8-55); AST (SGOT) 27 U/L (5-34); Alkaline Phosphatase 59 U/L (40-110); Anion Gap 18 mmol/L (10-20); BUN (Urea Nitrogen) 52 mg/dL (9.8-20.1); Bilirubin, Total 0.8 mg/dL (0.2-1.2); Calc. Creatinine Clearance 12 mL/min (70-130); Calcium 8.4 mg/dL (7.8-10.44); Carbon Dioxide 27 mmol/L (23-31); Chloride 93 mmol/L (98-107); Estimated GFR 7; Globulin 2.8 g/dL (2.4-3.5); Glucose 120 mg/dL (80-115); Potassium 4.2 mmol/L (3.5-5.1); Protein, Total 5.8 g/dL (5.8-8.1); Sodium 134 mmol/L (136-145)
[2023-07-04 08:05] LABS: Hematocrit 24.5 % (36.0-47.0); Hemoglobin 8.2 g/dL (12.0-16.0)
[2023-07-04] MEDS: Lidocaine 4% Patch TD SCH (08:14)
[2023-07-04] MEDS: Carvedilol 25 MG TAB PO SCH ×2 (08:14→17:42)
[2023-07-04] MEDS: Losartan 25 MG TAB PO SCH (08:16)
[2023-07-04] MEDS: Pantoprazole 40 MG VIAL IVP SCH ×2 (08:17→21:43)
[2023-07-04 08:31] VITALS: BMI 31.8
[2023-07-04] MEDS: Isosorbide Mononitrate 60 MG ER.TAB PO SCH (09:29)
[2023-07-04] MEDS: cloNIDine 0.2 MG TAB PO SCH ×2 (09:29→21:50)
[2023-07-04] MEDS: Clopidogrel Bisulfate 75 MG TAB PO SCH (09:29)
[2023-07-04] MEDS: NIFEdipine XL 90 MG ER.TAB PO SCH (09:29)
[2023-07-04] MEDS: Folic Acid 1 MG TAB PO SCH (09:29)
[2023-07-04] MEDS: Aspirin 81 mg Enteric Coated Tablet PO SCH (09:30)
[2023-07-04] MEDS: Sevelamer Carbonate 800 MG TAB PO SCH ×3 (09:30→17:43)
[2023-07-04] MEDS: Cholecalciferol 1,000 UNITS (25 MCG) TAB PO SCH (09:30)
[2023-07-04] MEDS ORDERED: fentaNYL 50 mcg/mL 1 mL Vial SLOW IVP PRN ×3 (14:58→20:44)
[2023-07-04] MEDS ORDERED: Methylnaltrexone 12 MG/0.6 ML VIAL SC SCH (18:00)
[2023-07-04] MEDS: Transdermal Patch Removal TOP SCH ×2 (21:42→21:45)
[2023-07-04] MEDS: Metoclopramide HCl 10 MG/2 ML VIAL IVP SCH (21:43)
[2023-07-04] MEDS: Atorvastatin Calcium 40 MG TAB PO SCH (21:50)
[2023-07-05 04:37] LABS: #Eosinphils 0.1 thou/uL (0.0-0.7); #Monocytes 0.8 thou/uL (0.11-0.59); %Basophils 0.1 % (0.0-1.0); %Eosinophils 0.4 % (0.0-10.0); %Lymphocytes 3.6 % (21.0-51.0); %Monocytes 6.1 % (0.0-10.0); %Neutrophils 89.4 % (42.0-75.0); Hemoglobin 7.9 g/dL (12.0-16.0); Mean Corpuscular HGB CONC 32.9 g/dL (32.0-36.0); Mean Corpuscular Hemoglobin 32.1 pg (27.0-31.0); Mean Corpuscular Volume 97.6 fl (78.0-98.0); Mean Platelet Volume 11.3 fL (7.4-10.4); Platelet Count 193 10x3/uL (130-400); RBC Distribution Width 16.5 % (11.5-14.5); Red Blood Cell (RBC) Count 2.46 mill/uL (4.20-5.40); White Blood Cell (WBC) Count 13.4 10x3/uL (4.8-10.8)
[2023-07-05] MEDS: Metoclopramide HCl 10 MG/2 ML VIAL IVP SCH ×3 (05:10→22:11)
[2023-07-05] MEDS: Sodium Chloride 0.9% 1,000 ML IV SCH ×2 (05:12→23:16)
[2023-07-05 05:38] LABS: ALT (SGPT) 16 U/L (8-55); AST (SGOT) 43 U/L (5-34); Albumin 2.9 g/dL (3.4-4.8); Alkaline Phosphatase 71 U/L (40-110); Anion Gap 19 mmol/L (10-20); BUN (Urea Nitrogen) 60 mg/dL (9.8-20.1); Bilirubin, Total 0.8 mg/dL (0.2-1.2); Calc. Creatinine Clearance 11 mL/min (70-130); Carbon Dioxide 23 mmol/L (23-31); Chloride 95 mmol/L (98-107); Estimated GFR 6; Globulin 2.7 g/dL (2.4-3.5); Glucose 167 mg/dL (80-115); Potassium 4.5 mmol/L (3.5-5.1); Protein, Total 5.6 g/dL (5.8-8.1); Sodium 132 mmol/L (136-145)
[2023-07-05] MEDS: Carvedilol 25 MG TAB PO SCH ×2 (09:38→17:40)
[2023-07-05] MEDS: cloNIDine 0.2 MG TAB PO SCH ×2 (09:38→23:15)
[2023-07-05] MEDS: Isosorbide Mononitrate 60 MG ER.TAB PO SCH (09:38)
[2023-07-05] MEDS: NIFEdipine XL 90 MG ER.TAB PO SCH (09:38)
[2023-07-05] MEDS: Pantoprazole 40 MG VIAL IVP SCH ×2 (09:39→22:13)
[2023-07-05] MEDS: Lidocaine 4% Patch TD SCH (09:39)
[2023-07-05] MEDS: Losartan 25 MG TAB PO SCH (09:39)
[2023-07-05] MEDS: Folic Acid 1 MG TAB PO SCH (09:39)
[2023-07-05] MEDS: Sevelamer Carbonate 800 MG TAB PO SCH ×2 (09:40→12:57)
[2023-07-05] MEDS: Clopidogrel Bisulfate 75 MG TAB PO SCH (09:40)
[2023-07-05] MEDS: Aspirin 81 mg Enteric Coated Tablet PO SCH (09:40)
[2023-07-05] MEDS: Cholecalciferol 1,000 UNITS (25 MCG) TAB PO SCH (09:40)
[2023-07-05] MEDS ORDERED: Lorazepam 1 MG TAB PO PRN (11:32)
[2023-07-05] MEDS ORDERED: Ondansetron ODT 4 MG TAB PO PRN (11:32)
[2023-07-05] MEDS ORDERED: Glycopyrrolate 1 MG TAB PO PRN (11:38)
[2023-07-05] MEDS: Morphine 2 MG/ML VIAL SLOW IVP PRN ×4 (12:59→23:10)
[2023-07-05] MEDS: Lorazepam 2 MG/ML VIAL SLOW IVP PRN ×2 (18:03→22:14)
[2023-07-05] MEDS: Transdermal Patch Removal TOP SCH (23:15)
[2023-07-06] MEDS: Morphine 2 MG/ML VIAL SLOW IVP PRN ×3 (00:58→10:20)
[2023-07-06] MEDS ORDERED: Lorazepam 2 MG/ML VIAL SLOW IVP PRN ×2 (01:58→09:48)
[2023-07-06] MEDS: Lorazepam 2 MG/ML VIAL SLOW IVP PRN (02:00)
[2023-07-06] MEDS: Metoclopramide HCl 10 MG/2 ML VIAL IVP SCH (06:56)
[2023-07-06] MEDS: Lidocaine 4% Patch TD SCH (08:21)
[2023-07-06] MEDS: Pantoprazole 40 MG VIAL IVP SCH (08:22)
[2023-07-06 08:50] VITALS: BP 126/56; TEMP 99.4
[2023-07-06] MEDS: NIFEdipine XL 90 MG ER.TAB PO SCH (11:56)
[2023-07-06] MEDS: cloNIDine 0.2 MG TAB PO SCH (11:57)
[2023-07-06] MEDS: Isosorbide Mononitrate 60 MG ER.TAB PO SCH (11:57)
[2023-07-06] MEDS: Carvedilol 25 MG TAB PO SCH (11:57)
[2023-07-06] MEDS: Losartan 25 MG TAB PO SCH (11:57)
== END 2023-07-06 12:49 | disposition hospice, inpatient (51) | DRG 981 ==
LOC: ERS 17:26 → ERHOLD 21:24 → T4-B 06-28 15:04 → IMCU/EMU 07-02 11:30 → SJJU 07-05 15:49
PROVIDERS: ADMIT Emergency Medicine; ATTEND Emergency Medicine
PROC: 5A1D70Z Performance of Urinary Filtration, Intermittent, Less than 6 Hours Per Day (ICD-10-PCS; 2023-06-28)
PROC: 0D968ZZ Drainage of Stomach, Via Natural or Artificial Opening Endoscopic (ICD-10-PCS; principal; 2023-07-02)
PROC: 02HV33Z Insertion of Infusion Device into Superior Vena Cava, Percutaneous Approach (ICD-10-PCS; 2023-07-02)
PROC: 30233N1 Transfusion of Nonautologous Red Blood Cells into Peripheral Vein, Percutaneous Approach (ICD-10-PCS; 2023-07-02)
PROC: 0D9670Z Drainage of Stomach with Drainage Device, Via Natural or Artificial Opening (ICD-10-PCS; 2023-07-02)
DX: G92.8 Other toxic encephalopathy (principal); K21.01 Gastro-esophageal reflux disease with esophagitis, with bleeding; K68.3 Retroperitoneal hematoma; N18.6 End stage renal disease; I44.2 Atrioventricular block, complete; I50.22 Chronic systolic (congestive) heart failure; I13.2 Hypertensive heart and chronic kidney disease with heart failure and with stage 5 chronic kidney disease, or end stage renal disease; E87.1 Hypo-osmolality and hyponatremia; T82.49XA Other complication of vascular dialysis catheter, initial encounter; J44.9 Chronic obstructive pulmonary disease, unspecified; Z51.5 Encounter for palliative care; Z66 Do not resuscitate; I25.10 Atherosclerotic heart disease of native coronary artery without angina pectoris; E11.22 Type 2 diabetes mellitus with diabetic chronic kidney disease; E78.5 Hyperlipidemia, unspecified; E11.51 Type 2 diabetes mellitus with diabetic peripheral angiopathy without gangrene; F41.9 Anxiety disorder, unspecified; F32.A Depression, unspecified; K25.9 Gastric ulcer, unspecified as acute or chronic, without hemorrhage or perforation; D72.829 Elevated white blood cell count, unspecified; I72.9 Aneurysm of unspecified site; E83.39 Other disorders of phosphorus metabolism; D63.1 Anemia in chronic kidney disease; R13.10 Dysphagia, unspecified; E11.43 Type 2 diabetes mellitus with diabetic autonomic (poly)neuropathy; I95.9 Hypotension, unspecified; R47.81 Slurred speech; K31.84 Gastroparesis; I25.2 Old myocardial infarction; Z95.5 Presence of coronary angioplasty implant and graft; Z99.81 Dependence on supplemental oxygen; Z98.890 Other specified postprocedural states; Z95.810 Presence of automatic (implantable) cardiac defibrillator; Z95.1 Presence of aortocoronary bypass graft; Z88.8 Allergy status to other drugs, medicaments and biological substances; Z79.899 Other long term (current) drug therapy; Z79.82 Long term (current) use of aspirin; Z87.891 Personal history of nicotine dependence; Z99.2 Dependence on renal dialysis; Y83.8 Other surgical procedures as the cause of abnormal reaction of the patient, or of later complication, without mention of misadventure at the time of the procedure
CPT/HCPCS: 36415; 36416; 36430; 51701; 70450; 71045; 74018; 74177; 74230; 80053; 80069; 80306; 80307; 81001; 82140; 82728; 83540; 83550; 83605; 83735; 83970; 84100; 84443; 84484; 85025; 85610; 85730; 86850; 86900; 86901; 87040; 87077; 87149; 90935; 93005; 93010; 93923; 96360; 97139; C9113; G0257; J1200; J1644; J1815; J1885; J2060; J2212; J2250; J2270; J2272; J2405; J2704; J2765; J3010; J7050; J7120; P9016; Q0162; Q4081; S0179

== ENCOUNTER 2023-07-06 13:09 | Inpatient (IN) | payer OTHER ==
[2023-07-06 13:58] VITALS: BMI 31.8
[2023-07-06] MEDS ORDERED: Acetaminophen 325 MG TAB PO PRN (14:07)
[2023-07-06] MEDS ORDERED: Acetaminophen 650 MG Suppository PR PRN (14:08)
[2023-07-06] MEDS ORDERED: Ondansetron PF 4 MG/2 ML Vial IVP PRN (14:08)
[2023-07-06] MEDS ORDERED: Morphine 4 MG/ML VIAL SLOW IVP PRN (14:12)
[2023-07-06] MEDS: GLYCOPYRROLATE/PF 0.2 MG/ML VIAL SLOW IVP PRN ×2 (14:44→22:15)
[2023-07-06] MEDS: Lorazepam 2 MG/ML VIAL SLOW IVP PRN ×2 (14:44→20:03)
[2023-07-06] MEDS ORDERED: Scopolamine 1.5 mg/72 hour Patch TOP SCH ×2 (15:00→15:15)
[2023-07-06] MEDS: Lorazepam 2 MG/ML VIAL SLOW IVP SCH ×2 (16:30→21:27)
[2023-07-06] MEDS: Morphine 4 MG/ML VIAL SLOW IVP SCH ×2 (16:31→21:25)
[2023-07-07] MEDS: Morphine 4 MG/ML VIAL SLOW IVP SCH ×4 (01:04→12:35)
[2023-07-07] MEDS: Lorazepam 2 MG/ML VIAL SLOW IVP SCH ×4 (01:04→12:36)
[2023-07-07] MEDS: Lorazepam 2 MG/ML VIAL SLOW IVP PRN (04:00)
[2023-07-07] MEDS: GLYCOPYRROLATE/PF 0.2 MG/ML VIAL SLOW IVP PRN (04:00)
[2023-07-07 10:23] VITALS: BP 113/74; TEMP 99.6
[2023-07-09] MEDS ORDERED: Scopolamine 1.5 mg/72 hour Patch TOP SCH (09:00)
== END 2023-07-07 16:51 | disposition expired | DRG 951 ==
LOC: SJJU 13:09
PROVIDERS: ADMIT Internal Medicine Nephrology; ATTEND Internal Medicine Nephrology
DX: Z51.5 Encounter for palliative care (principal); K68.3 Retroperitoneal hematoma; N18.6 End stage renal disease; I21.4 Non-ST elevation (NSTEMI) myocardial infarction; G93.41 Metabolic encephalopathy; I50.22 Chronic systolic (congestive) heart failure; K92.2 Gastrointestinal hemorrhage, unspecified; K20.90 Esophagitis, unspecified without bleeding; I25.10 Atherosclerotic heart disease of native coronary artery without angina pectoris; Z99.2 Dependence on renal dialysis; E11.22 Type 2 diabetes mellitus with diabetic chronic kidney disease; J44.9 Chronic obstructive pulmonary disease, unspecified; F32.9 Major depressive disorder, single episode, unspecified; F41.1 Generalized anxiety disorder
CPT/HCPCS: J2060; J2270; J3490